=== PATIENT | male | born 1965 | race African-American/Black ===

== ENCOUNTER 2017-03-20 20:22 | Inpatient (IN) | payer MEDICAID ==
[2017-03-20 21:02] VITALS: BP 139/76
[2017-03-20] MEDS ORDERED: Albuterol Nebulizer 2.5mg/3mL HHN PRN (22:02)
[2017-03-20] MEDS ORDERED: Ipratropium Neb 0.5 mg/2.5 mL UD HHN PRN (22:02)
[2017-03-20] MEDS ORDERED: Maalox 30 mL Cup PO PRN (22:02)
[2017-03-20 22:53] LABS: % BASOPHILS 0.2 % (0.0-2.0); % EOSINOPHILS 0.5 % (0.0-5.0); % LYMPHOCYTES 12.6 % (20.0-50.0); % NEUTROPHILS 82.7 % (40.0-80.0); HEMATOCRIT 35.2 % (39.0-49.0); HEMOGLOBIN 12.1 gm/dL (13.2-17.3); MEAN CELL VOLUME 85.2 fl (80-99); MEAN CORPUSCULAR HEMOGLOBIN 29.4 pg (26.0-30.0); MEAN CORPUSCULAR HGB CONC 34.5 pg (28.0-36.0); MEAN PLATELET VOLUME 7.3 fl; PLATELET COUNT 269 Th/cmm (150-400); RED BLOOD COUNT 4.13 Mil/cmm (4.30-5.70); RED CELL DISTRIBUTION WIDTH 12.4 % (11.5-20.0); WHITE BLOOD COUNT 3.6 Th/cmm (4.8-10.8)
[2017-03-20 23:06] LABS: ANION GAP 16.3 (7.0-16.0); BILIRUBIN,TOTAL 0.4 mg/dL (0.3-1.0); BUN/CREATININE RATIO 17.4; CALCIUM SERUM 8.7 mg/dL (8.6-10.3); CARBON DIOXIDE 18.4 mEq/L (21.0-31.0); CREATININE - SERUM 3.1 mg/dL (0.7-1.3); POTASSIUM SERUM 3.7 mEq/L (3.5-5.1)
[2017-03-20] MEDS: D5-0.9%NS 1,000 ML IV SCH (23:36)
[2017-03-21 05:14] LABS: % EOSINOPHILS 0.6 % (0.0-5.0); % NEUTROPHILS 82.3 % (40.0-80.0); NEUTROPHILE ABSOLUTE 2.6 Th/cmm (1.8-8.0); RED BLOOD COUNT 4.11 Mil/cmm (4.30-5.70)
[2017-03-21 05:25] LABS: % BASOPHILS 0.1 % (0.0-2.0); % LYMPHOCYTES 11.7 % (20.0-50.0); % MONOCYTES 5.3 % (2.0-10.0); HEMATOCRIT 35.6 % (39.0-49.0); MEAN CELL VOLUME 86.5 fl (80-99); MEAN CORPUSCULAR HEMOGLOBIN 29.3 pg (26.0-30.0); MEAN CORPUSCULAR HGB CONC 33.8 pg (28.0-36.0); MEAN PLATELET VOLUME 7.7 fl; PLATELET COUNT 275 Th/cmm (150-400); RED CELL DISTRIBUTION WIDTH 12.5 % (11.5-20.0); WHITE BLOOD COUNT 3.2 Th/cmm (4.8-10.8)
[2017-03-21 05:37] LABS: ANION GAP 11.7 (7.0-16.0); CALCIUM SERUM 8.8 mg/dL (8.6-10.3); CREATININE - SERUM 2.9 mg/dL (0.7-1.3); MAGNESIUM 2.4 mg/dL (1.9-2.7); PHOSPHOROUS 4.6 mg/dL (2.5-5.0); POTASSIUM SERUM 3.7 mEq/L (3.5-5.1)
[2017-03-21] MEDS ORDERED: Pneumococcal Vaccine 0.5 mL Vial IM ONE (10:00)
--- NOTE | 2017-03-21 13:19 | Diagnostic Imaging Report ---
Renal ultrasound HISTORY: Abnormal renal function test The right kidney measures 12.6 x 5.5 x 5.4 cm. There is an increase in cortical echogenicity. Significance should be correlated clinically with renal function tests. No focal lesions. No hydronephrosis. The left kidney is normal in size (11.5 x 5.6 x 5.5 cm). Increased cortical echogenicity also noted. Limited evaluation of the urinary bladder with no obvious intraluminal abnormalities. IMPRESSION: 1. Bilateral increased renal parenchymal echogenicity. The significance should be correlated clinically and with renal function tests. 2. No focal renal lesions or hydronephrosis
[2017-03-21] MEDS: Hydrocodone/APAP 10 mg/325 mg Tab PO PRN (18:37)
[2017-03-21] MEDS: Benztropine 1 MG TAB PO SCH (22:16)
[2017-03-22] MEDS: D5-0.9%NS 1,000 ML IV SCH ×2 (01:02→08:27)
--- NOTE | 2017-03-22 01:20 | History & Physical ---
ADMIT DATE: 03/20/2017 CHIEF COMPLAINT: The patient has weakness. HISTORY OF PRESENT ILLNESS: The patient is a 51-year-old black male who has been transferred from [facility]. The patient was admitted to [facility] from [facility]. The patient was noted to be weak. The patient with back pain. He complains of mild cough. REVIEW OF SYSTEMS: See history of present illness. PAST MEDICAL HISTORY: Asthma and schizophrenia. SOCIAL HISTORY: The patient is a resident of a [facility]. MEDICATIONS: see MAR. ALLERGIES: No known allergies. PHYSICAL EXAMINATION: GENERAL: The patient is awake, alert and nontoxic in appearance. VITAL SIGNS ON ADMISSION: Temperature 97.6, pulse 82, blood pressure 139/76, respirations 18 and O2 sat 97% on room air. HEENT: Normocephalic and atraumatic. Extraocular movements are intact. Oropharynx is clear. NECK: Supple. No thyromegaly, no lymphadenopathy. CARDIOVASCULAR: S1, S2. No gallops. RESPIRATORY: Clear. No wheezing or rhonchi. GASTROINTESTINAL: Soft, nontender, nondistended. Positive bowel sounds. GENITOURINARY: No CVA tenderness. No suprapubic tenderness. BACK: No midline tenderness. EXTREMITIES: Equal pulses bilaterally. No cyanosis, clubbing or edema. SKIN: Negative. PSYCHIATRIC: Negative. NEUROLOGIC: Cranial nerves intact. Extraocular movements are intact. Sensation intact. Neurovascular intact. Bilateral muscles grossly normal. LABORATORY DATA: On admission are as follows: Hematology: WBC of 3.6, hemoglobin 12.1, hematocrit 35.2 and platelet count of 269, 82% neutrophils, 12% lymphocytes. Chemistry: Sodium is 123, potassium 3.7, chloride 92, bicarbonate 18, anion gap 16.3, BUN 54, creatinine 3.9. GFR is 27.6, glucose 109, calcium 8.7, total bilirubin 0.4, AST 198, ALT per labs, alkaline phosphatase per labs, albumin 3.2, globulin 3.2. [place] level is 0.91. MICROBIOLOGY: No new microbiology results. RADIOLOGY: Renal ultrasound shows bilateral increased renal parenchymal density. No focal renal lesions or hydronephrosis. IMPRESSION: 1. Acute kidney injury. 2. Weakness. 3. Dehydration (moderate). 4. Leukopenia. 5. Anemia. 6. Hyponatremia. 7. Hyperglycemia. 8. Transaminitis. 9. Hypoalbuminemia. 10. Schizophrenia. 11. Asthma. PLAN: The patient admitted to med/surg unit, seen by Dr. Rodas. The patient ordered for Nephrology consultation and for psychiatric consultation. We will obtain further labs and consultations. The patient ordered for PT evaluation. JOB# [id number]
--- NOTE | 2017-03-22 05:51 | Consultation ---
DATE OF CONSULTATION: 03/21/2017 REASON FOR CONSULTATION: Worsening kidney function, electrolyte imbalance and fluid management. HISTORY OF PRESENT ILLNESS: This is a 51-year-old male with past medical history of schizophrenia, who developed generalized weakness and transported to [facility]. He was then transferred to [facility] for further evaluation and medical care. A few days prior to admission, he developed watery diarrhea approximately 3-4 times per day. This led to a very poor oral intake, with gradual development of generalized weakness. A few hours prior to admission, his condition deteriorated. He was then brought to [facility]. His vitals were stable except for his temperature of 100 degrees centigrade. Chest x-ray showed no acute disease. His sodium level was 122 with a BUN/creatinine of 52/3.6. He was initiated on IV fluids and his BUN/creatinine gradually improved to ____/2.9. He denied any nausea and vomiting. He denied any history of kidney failure in the past. PAST MEDICAL HISTORY: 1. Bronchial asthma. 2. Schizophrenia. CURRENT MEDICATIONS: He is currently on acetaminophen, albuterol, benztropine, folic acid, gabapentin, Haldol, ipratropium, lithium, lorazepam, magnesium hydroxide, Zofran, trazodone. ALLERGIES: No known drug allergies. SOCIAL HISTORY: He did have a history of smoking in the past, but quit many years ago. Denied any history of alcohol abuse. He currently resides at the [facility]. FAMILY HISTORY: Noncontributory to present illness. REVIEW OF SYSTEMS: CONSTITUTIONAL: Appetite had deteriorated. He had a low-grade fever. He subsequently developed generalized weakness. HEENT: No mention of headaches or dizziness. CARDIORESPIRATORY: No chest pain, palpitations, diaphoresis or cough. GASTROINTESTINAL: He admitted to having watery diarrhea 3-4 times a day. No nausea and vomiting. No melena, hematochezia. ENDOCRINE: No history of diabetes or thyroid abnormalities. MUSCULOSKELETAL: Multiple joint arthralgias. HEMATOLOGIC: History of mild anemia. GENITOURINARY: As per patient, no history of kidney failure. Comes in now with acute kidney injury. Denied any dysuria or hematuria, no retention. NEUROPSYCHIATRIC: No syncopal episode, no seizure activity. History of schizophrenia. PHYSICAL EXAMINATION: GENERAL: The patient is alert, verbal, comfortable. VITAL SIGNS: Blood pressure is 125/64, pulse 78, temperature 97.2 degrees. SKIN: Poor turgor, warm. No rash, no jaundice appreciated. HEENT: Head: Normocephalic, atraumatic. Eyes: Extraocular muscles intact. Pupils equal, round, reactive to light and accommodate. Anicteric sclerae, pink conjunctivae. Nose: Midline nasal septum. Mouth: Dry mucosa with adequate dentition. NECK: Supple. No adenopathy, no thyromegaly, no bruits. Trachea palpated in the midline. CHEST AND CARDIOVASCULAR: S1, S2. No rub, murmur, nor gallop appreciated. Point of maximal impulse fifth intercostal space, left midclavicular line. No abdominal or femoral bruits appreciated. LUNGS: Equal expansion. No use of accessory muscles. No supraclavicular retractions. Decreased breath sounds but clear to auscultation without any wheeze. ABDOMEN: Flat, soft, positive for bowel sounds. No bruits either diastolic or systolic. RECTAL: Lax sphincter tone, no presence of any stool on examining finger. GENITOURINARY: Normal appearing male genitalia. MUSCULOSKELETAL: No effusions present in his joints, with adequate range of motion. EXTREMITIES: No evidence of edema, cyanosis nor clubbing with palpable femoral, popliteal and dorsalis pedis pulses. GENERAL: The patient is awake, verbal. Motor is 5/5. Cranial nerves ____ 12 intact. Sensory intact. LABORATORY DATA: Revealed sodium is 124, potassium 3.7, chloride 97, bicarbonate 19, BUN 55, creatinine 2.9, calcium is 8.8. [place] level is 0.91. White count is 3.2, hemoglobin 12, hematocrit 35.6, platelets 275, polys 82.3%. IMPRESSION: 1. As per the patient, he has no history of chronic kidney disease. However, with his history of schizophrenia, he may not be able to provide adequate information. Renal ultrasound revealed increased echogenicity involving both kidneys suggestive of chronic medical renal disease. Thus, he may have underlying chronic kidney disease, possibly due to chronic interstitial nephritis secondary to medications such as lithium. He also mentioned that he had watery diarrhea 3-4 times a day. He was not able to replenish his fluid, both sensible and insensible fluid losses orally. Physical exam revealed poor skin turgor with dry oral mucosa. These are suggestive of underlying dehydration, which could give rise to a decrease in effective circulating volume that is effective circulating volume. His prerenal azotemia may then progress to acute tubular injury. 2. Persistent hyponatremia, which may be due to increased sodium loss compared to free water loss due to ongoing watery diarrhea. I doubt that this is ____ lithium because this medication causes nephrogenic diabetes insipidus which is associated with hypernatremia. 3. Watery diarrhea. Possibly acute gastroenteritis; Clostridium difficile colitis and could be medication induced again, due to lithium. 4. Generalized weakness secondary to diarrhea. 5. Moderate malnutrition. 6. Bronchial asthma. 7. Schizophrenia. PLAN: 1. Urine sodium, eosinophils, creatinine and ____. 2. Urine microalbumin to creatinine ratio. 3. Continue IV fluids with normal daily. 4. Stool for C. difficile and white blood cell count. 5. Electrolytes along with uric acid and serum ____. Thank you, Dr. Rodas, for this consult and we will follow the patient closely with you. JOB# [id number]
--- NOTE | 2017-03-22 06:48 | Admit Criteria Form ---
Admit Criteria Forms - Admit Criteria Diagnosis: HYPONATREMIA; HYPERNATREMIA; HYPOKALEMIA; HYPERKALEMIA; HYPOCALCEMIA; HYPERCALCEMIA Clinical Indications for Inpatient Care (Place 'X' for any and all applicable criteria): Ongoing inpatient care may be indicated for ANY ONE of the following [G](1)(2)(3 )(5): [X ]I. Hyponatremia with ANY ONE of the following: [X ]a) Sodium less than 130 mEq/L (mmol/L) (new) (6)(22) [ ]b) Sodium less than 135 mEq/L (mmol/L) with ANY ONE of the following: [ ]i) Severe medical etiology requiring inpatient management (eg, heart failure, hypovolemia) [ ]ii) Altered mental status [ ]iii) Seizures [ ]II. Hypernatremia with ANY ONE of the following: [ ]a) Sodium greater than 155 mEq/L (mmol/L) [ ]b) Sodium greater than 150 mEq/L (mmol/L) with ANY ONE of the following: [ ] i) Altered mental status [ ]ii) Seizures [ ]iii) Severe medical etiology (eg, hypovolemia, diabetes insipidus) [ ]iv) Severe weakness [ ]v) Severe medical etiology (eg, hemolysis, infection, drug overdose) [ ]III. Hypokalemia with ANY ONE of the following: [ ]a) Potassium less than 2.5 mEq/L (mmol/L) despite outpatient and emergency treatment [ ]b) Potassium less than 3.0 mEq/L (mmol/L) with ANY ONE of the following: [ ]i) Weakness [ ]ii) Cardiac abnormality (eg, arrhythmia, conduction disturbance) [ ]iii) Cardiac ischemia [ ]iv) Ileus [ ]v) Ongoing medical cause requiring inpatient management. ( e.g., acute renal wasting, SIADH) [ ]vi) Other severe symptoms [ ] IV. Hyperkalemia with ANY ONE of the following: [ ]a) Potassium greater than 6.5 mEq/L (mmol/L) [ ]b) Potassium greater than 5 mEq/L (mmol/L) with ANY ONE of the following: [ ]i) Severe ECG findings [H] [ ]ii) Acute worsening of renal failure (creatinine greater than 2.5 mg/dL (221 micromoles/L) or significant elevation for age and size) [ ] V. Hypocalcemia with ANY ONE of the following: [ ]a) Calcium less than 7 mg/dL (1.75 mmol/L) despite outpatient and emergency treatment(19) [ ]b) Calcium less than 8 mg/dL (2 mmol/L) with significant symptoms or findings; examples include: [ ]i) Cardiac abnormality (eg, arrhythmia or conduction disturbance) [ ]ii) Altered mental status [ ]iii) Seizures [ ]iv) Breathing difficulty [ ]v) Muscle spasms [ ]. Hypercalcemia with ANY ONE of the following: [ ]a) Calcium greater than 14 mg/dL (3.5 mmol/L) [ ]b) Calcium greater than 12 mg/dL (3 mmol/L) with ANY ONE of the following: [ ]i) Significant dehydration or hypovolemia as indicated by ANY ONE of the following(2): [ ]1. Clinically significant dehydration as indicated by ANY ONE of the following: [ ]A. Acute loss of weight from baseline (5% of body weight in adults, 9% in pediatric patients) [ ]B. Hemodynamic instability [ ]C. Acute renal failure [ ]D. Serum sodium greater than 150 mEq/L (mmol/L) [ ]2) Dehydration that is persistent indicated by ALL of the following: [ ]A. Oral rehydration therapy not tolerated or insufficient to adequately correct dehydration [ ]B. Appropriate intravenous treatment (eg, fluids ) does not readily correct dehydration ie, after 12 to 24 hours of treatment) [ ]ii) Significant symptoms or findings; examples include: [ ]1) Altered mental status [ ]2) Cardiac abnormality (eg, arrhythmia, conduction disturbance) [ ]3) Cardiac abnormality (eg, arrhythmia, conduction disturbance) The original [facility] content created by [employer] has been revised. The portions of the content which have been revised are identified through the use of italic text or in bold, and [facility] has neither reviewed nor approved the modified material. All other unmodified content is copyright [facility] [employer] Please see references footnoted in the original [facility] edition 2016 Admit Criteria Met?: Yes
[2017-03-22 08:01] LABS: ALB/GLOB RATIO 0.9 (1.0-1.8); ANION GAP 9.8 (7.0-16.0); BILIRUBIN,TOTAL 0.4 mg/dL (0.3-1.0); BUN/CREATININE RATIO 20.8; CALCIUM SERUM 8.9 mg/dL (8.6-10.3); CARBON DIOXIDE 21.1 mEq/L (21.0-31.0); CREATININE - SERUM 2.5 mg/dL (0.7-1.3); MAGNESIUM 2.7 mg/dL (1.9-2.7); PHOSPHOROUS 3.8 mg/dL (2.5-5.0); POTASSIUM SERUM 3.9 mEq/L (3.5-5.1); URIC ACID 10.1 mg/dL (4.4-7.6)
[2017-03-22 08:05] LABS: HEMATOCRIT 34.3 % (39.0-49.0); HEMOGLOBIN 11.8 gm/dL (13.2-17.3); MEAN CELL VOLUME 85.7 fl (80-99); MEAN CORPUSCULAR HEMOGLOBIN 29.5 pg (26.0-30.0); MEAN CORPUSCULAR HGB CONC 34.4 pg (28.0-36.0); MEAN PLATELET VOLUME 7.8 fl; PLATELET COUNT 244 Th/cmm (150-400); RED BLOOD COUNT 4.01 Mil/cmm (4.30-5.70); RED CELL DISTRIBUTION WIDTH 12.5 % (11.5-20.0)
[2017-03-22 08:24] LABS: WHITE BLOOD COUNT 3.6 Th/cmm (4.8-10.8)
[2017-03-22 10:00] LABS: BAND NEUTROPHILE 6 % (0-10); NEUTROPHILS 81 % (40-80); TOTAL CELLS COUNTED 100
[2017-03-22 10:01] LABS: PLATELET ESTIMATE ADEQUATE (NORMAL); PLATELET MORPHOLOGY NORMAL (NORMAL)
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
[2017-03-22 10:58] LABS: AMPHETAMINE URINE NEGATIVE (NEGATIVE); BARBITURATES URINE NEGATIVE (NEGATIVE); METHADONE URINE NEGATIVE (NEGATIVE)
--- NOTE | 2017-03-22 13:23 | Diagnostic Imaging Report ---
Ultrasound abdomen limited History: Transaminitis Comparison: Renal ultrasound on 03/21/2017 Technique: Sonography of the right upper quadrant was performed in multiple planes. Findings: The liver demonstrates normal echogenicity and measures 18.9 cm. No evidence of focal lesions. No evidence of gallstones. There is generalized gallbladder wall thickening measuring up to 5 mm. No pericholecystic fluid. The common bile duct measures 3 mm. IMPRESSION: Generalized mild gallbladder wall thickening. No evidence of gallstones. Findings are nonspecific and may be due to inflammatory processes. Hepatitis and hypoalbuminemia may be considered. Other etiologies such as acalculus cholecystitis may also be considered in the appropriate clinical setting. Mild hepatomegaly.
--- NOTE | 2017-03-22 18:36 | General Progress Note ---
Subjective - Review of Systems Service Date: 03/22/17 Subjective: awake, agitated today Objective - Results Result Diagrams: 03/22/17 06:00 03/22/17 06:00 Recent Labs: Laboratory Last Values WBC 3.6 Th/cmm (4.8-10.8) L 03/22/17 06:00 RBC 4.01 Mil/cmm (4.30-5.70) L 03/22/17 06:00 Hgb 11.8 gm/dL (13.2-17.3) L 03/22/17 06:00 Hct 34.3 % (39.0-49.0) L 03/22/17 06:00 MCV 85.7 fl (80-99) 03/22/17 06:00 MCH 29.5 pg (26.0-30.0) 03/22/17 06:00 MCHC Differential 34.4 pg (28.0-36.0) 03/22/17 06:00 RDW 12.5 % (11.5-20.0) 03/22/17 06:00 Plt Count 244 Th/cmm (150-400) 03/22/17 06:00 MPV 7.8 fl 03/22/17 06:00 Neutrophils % 82.3 % (40.0-80.0) H 03/21/17 04:32 Band Neutrophils % 6 % (0-10) 03/22/17 06:00 Lymphocytes % 11.7 % (20.0-50.0) L 03/21/17 04:32 Monocytes % 5.3 % (2.0-10.0) 03/21/17 04:32 Eosinophils % 0.6 % (0.0-5.0) 03/21/17 04:32 Basophils % 0.1 % (0.0-2.0) 03/21/17 04:32 Neutrophils (Manual) 81 % (40-80) H 03/22/17 06:00 Lymphocytes 9 % (20-50) L 03/22/17 06:00 Monocytes 4 % (2-10) 03/22/17 06:00 Platelet Estimate ADEQUATE (NORMAL) 03/22/17 06:00 Platelet Morphology NORMAL (NORMAL) 03/22/17 06:00 RBC Morph Micro Appear NORMAL (NORMAL) 03/22/17 06:00 Eos Smear Source URINE 03/22/17 00:30 Eos Smear Total Cells NONE SEEN (NONE SEEN) 03/22/17 00:30 Sodium 126 mEq/L (136-145) L 03/22/17 06:00 Potassium 3.9 mEq/L (3.5-5.1) 03/22/17 06:00 Chloride 99 mEq/L (98-107) 03/22/17 06:00 Carbon Dioxide 21.1 mEq/L (21.0-31.0) 03/22/17 06:00 Anion Gap 9.8 (7.0-16.0) 03/22/17 06:00 BUN 52 mg/dL (7-25) H 03/22/17 06:00 Creatinine 2.5 mg/dL (0.7-1.3) H 03/22/17 06:00 Est GFR ( Amer) 35.3 ml/min (>90) 03/22/17 06:00 Est GFR (Non-Af Amer) 29.2 ml/min 03/22/17 06:00 BUN/Creatinine Ratio 20.8 03/22/17 06:00 Glucose 125 mg/dL (70-105) H 03/22/17 06:00 Uric Acid 10.1 mg/dL (4.4-7.6) H 03/22/17 06:00 Calcium 8.9 mg/dL (8.6-10.3) 03/22/17 06:00 Phosphorus 3.8 mg/dL (2.5-5.0) 03/22/17 06:00 Magnesium 2.7 mg/dL (1.9-2.7) 03/22/17 06:00 Total Bilirubin 0.4 mg/dL (0.3-1.0) 03/22/17 06:00 AST 224 U/L (13-39) H 03/22/17 06:00 ALT 62 U/L (7-52) H 03/22/17 06:00 Alkaline Phosphatase 35 U/L (34-104) 03/22/17 06:00 Total Protein 6.4 gm/dL (6.0-8.3) 03/22/17 06:00 Albumin 3.1 gm/dL (4.2-5.5) L 03/22/17 06:00 Globulin 3.3 gm/dL 03/22/17 06:00 Albumin/Globulin Ratio 0.9 (1.0-1.8) L 03/22/17 06:00 Ur Random Sodium 12 mmol/L 03/22/17 00:30 Urine Creatinine 108.0 mg/dl (39.0-259.0) 03/22/17 00:30 Urine Opiates Screen NEGATIVE (NEGATIVE) 03/22/17 00:30 Urine Methadone Screen NEGATIVE (NEGATIVE) 03/22/17 00:30 Ur Barbiturates Screen NEGATIVE (NEGATIVE) 03/22/17 00:30 Ur Tricyclics Screen NEGATIVE (NEGATIVE) 03/22/17 00:30 Ur Phencyclidine Scrn NEGATIVE (NEGATIVE) 03/22/17 00:30 Amphetamines Screen NEGATIVE (NEGATIVE) 03/22/17 00:30 U Methamphetamines Scrn NEGATIVE (NEGATIVE) 03/22/17 00:30 U Benzodiazepines Scrn NEGATIVE (NEGATIVE) 03/22/17 00:30 [place] 0.91 MEQ/L (0.50-1.00) 03/21/17 04:32 U Cocaine Metab Screen NEGATIVE (NEGATIVE) 03/22/17 00:30 U Cannabinoids Screen POSITIVE (NEGATIVE) H 03/22/17 00:30 - Physical Exam Vitals and I&O: Vital Signs Temp 97.7 F 03/22/17 15:49 Pulse 75 03/22/17 15:49 Resp 18 03/22/17 15:49 BP 113/54 03/22/17 15:49 Pulse Ox 100 03/22/17 15:49 Intake & Output 03/21/17 03/22/17 03/22/17 18:59 06:59 18:59 Intake Total 1240 741.667 Balance 1240 741.667 Intake: Intake, IV Amount 1000 741.667 D5-0.9%Ns 1,000 ml @ 100 1000 741.667 mls/hr IV .Q10H [facility] Rx#: [id number] Oral 240 Other: # Voids 3 Active Medications: Current Medications Acetaminophen (Tylenol) 650 mg PO Q6H PRN PRN Reason: Mild Pain/Headache/T above 101 Stop: 05/19/17 22:01 Last Admin: 03/21/17 22:17 Dose: 650 mg Acetaminophen/Hydrocodone Bitart ([place] 10 Mg/325 Mg) 1 tab PO Q6H PRN PRN Reason: Severe Pain Stop: 05/19/17 22:01 Last Admin: 03/21/17 18:37 Dose: 1 tab Acetaminophen/Hydrocodone Bitart ([place] 5mg/325mg) 1 tab PO Q6H PRN PRN Reason: Moderate Pain Stop: 05/19/17 22:01 Al Hydrox/Mg Hydrox/Simethicone (Maalox) 30 ml PO Q6H PRN PRN Reason: Constipation Stop: 05/19/17 22:01 Albuterol Sulfate (Albuterol 2.5mg/3ml Neb Ud) 2.5 mg HHN Q6H PRN PRN Reason: Shortness of Breath Stop: 05/19/17 22:01 Benztropine Mesylate (Cogentin) 2 mg PO HS [place]MARIA Stop: 05/20/17 20:59 Last Admin: 03/21/17 22:16 Dose: 2 mg Folic Acid (Folate) 1 mg PO DAILY LUZMARIA Stop: 05/21/17 08:59 Last Admin: 03/22/17 08:26 Dose: 1 mg Gabapentin (Neurontin) 300 mg PO TID [place]MARIA Stop: 05/20/17 13:59 Last Admin: 03/22/17 08:26 Dose: 300 mg Haloperidol (Haldol) 10 mg PO BID [place]ZMARIA Stop: 05/20/17 08:59 Last Admin: 03/22/17 16:25 Dose: 10 mg Dextrose/Sodium Chloride (D5-0.9%Ns) 1,000 mls @ 100 mls/hr IV .Q10H [place]MARIA Stop: 05/19/17 22:14 Last Admin: 03/22/17 08:27 Dose: 100 mls/hr Ipratropium [place] (Atrovent Neb 0.5mg/2.5ml) 0.5 mg HHN Q6H PRN PRN Reason: Shortness of Breath Stop: 05/19/17 22:01 [place] Carbonate (Eskalith) 300 mg PO HS LUZMARIA PRN Reason: Protocol Stop: 05/20/17 20:59 Last Admin: 03/21/17 22:16 Dose: 300 mg Lorazepam (Ativan) 1 mg IVP Q4H PRN; Protocol PRN Reason: Anxiety/Agitation Stop: 05/19/17 22:01 Magnesium Hydroxide (Milk Of Magnesia) 30 ml PO HS PRN PRN Reason: Constipation Stop: 05/19/17 22:01 Miscellaneous (Clinical Monitoring) 1 ea MC DAILY PRN PRN Reason: RENAL Stop: 05/20/17 07:28 Ondansetron HCl (Zofran Odt) 4 mg PO Q6H PRN PRN Reason: Nausea / Vomiting Stop: 05/19/17 22:01 Thiamine HCl (Vitamin B1) 100 mg PO DAILY LUZMARIA Stop: 05/21/17 08:59 Last Admin: 03/22/17 08:26 Dose: 100 mg Trazodone HCl (Desyrel) 50 mg PO HS [place]ZMARIA PRN Reason: Protocol Stop: 05/20/17 20:59 Last Admin: 03/21/17 22:16 Dose: 50 mg General: Alert, Other (not cooperative) HEENT: Atraumatic, Mucous membr. moist/pink Neck: Supple, +2 carotid pulse wo bruit Cardiovascular: Regular rate, Normal S1, Normal S2 Lungs: Clear to auscultation Abdomen: Bowel sounds, Soft Extremities: no Edema Neurological: Sensation intact Skin: no Rash Psych/Mental Status: Other (psychotic) Assessment/Plan - Assessment Assessment: ERICA on CKD Hyponatremia 2nd to Na loss watery diarrhea possible acute gastroenteritis, C. Diff Gen. Weakness 2nd to diarrhea Bronchial Asthma Schizophrenia mod malnutrition - Plan Plan: Lab - Result Diagrams 03/22/17 06:00 03/22/17 06:00 Current Medications Acetaminophen (Tylenol) 650 mg PO Q6H PRN PRN Reason: Mild Pain/Headache/T above 101 Stop: 05/19/17 22:01 Last Admin: 03/21/17 22:17 Dose: 650 mg Acetaminophen/Hydrocodone Bitart ([place] 10 Mg/325 Mg) 1 tab PO Q6H PRN PRN Reason: Severe Pain Stop: 05/19/17 22:01 Last Admin: 03/21/17 18:37 Dose: 1 tab Acetaminophen/Hydrocodone Bitart ([place] 5mg/325mg) 1 tab PO Q6H PRN PRN Reason: Moderate Pain Stop: 05/19/17 22:01 Al Hydrox/Mg Hydrox/Simethicone (Maalox) 30 ml PO Q6H PRN PRN Reason: Constipation Stop: 05/19/17 22:01 Albuterol Sulfate (Albuterol 2.5mg/3ml Neb Ud) 2.5 mg HHN Q6H PRN PRN Reason: Shortness of Breath Stop: 05/19/17 22:01 Benztropine Mesylate (Cogentin) 2 mg PO HS LUZMARIA Stop: 05/20/17 20:59 Last Admin: 03/21/17 22:16 Dose: 2 mg Folic Acid (Folate) 1 mg PO DAILY LUZMARIA Stop: 05/21/17 08:59 Last Admin: 03/22/17 08:26 Dose: 1 mg Gabapentin (Neurontin) 300 mg PO TID LUZMARIA Stop: 05/20/17 13:59 Last Admin: 03/22/17 08:26 Dose: 300 mg Haloperidol (Haldol) 10 mg PO BID LU[place]MARIA Stop: 05/20/17 08:59 Last Admin: 03/22/17 16:25 Dose: 10 mg Dextrose/Sodium Chloride (D5-0.9%Ns) 1,000 mls @ 100 mls/hr IV .Q10H [place] Stop: 05/19/17 22:14 Last Admin: 03/22/17 08:27 Dose: 100 mls/hr Ipratropium [place] (Atrovent Neb 0.5mg/2.5ml) 0.5 mg HHN Q6H PRN PRN Reason: Shortness of Breath Stop: 05/19/17 22:01 [place] Carbonate (Eskalith) 300 mg PO HS LUZMARIA PRN Reason: Protocol Stop: 05/20/17 20:59 Last Admin: 03/21/17 22:16 Dose: 300 mg Lorazepam (Ativan) 1 mg IVP Q4H PRN; Protocol PRN Reason: Anxiety/Agitation Stop: 05/19/17 22:01 Magnesium Hydroxide (Milk Of Magnesia) 30 ml PO HS PRN PRN Reason: Constipation Stop: 05/19/17 22:01 Miscellaneous (Clinical Monitoring) 1 ea MC DAILY PRN PRN Reason: RENAL Stop: 05/20/17 07:28 Ondansetron HCl (Zofran Odt) 4 mg PO Q6H PRN PRN Reason: Nausea / Vomiting Stop: 05/19/17 22:01 Thiamine HCl (Vitamin B1) 100 mg PO DAILY LUZMARIA Stop: 05/21/17 08:59 Last Admin: 03/22/17 08:26 Dose: 100 mg Trazodone HCl (Desyrel) 50 mg PO HS [place]MARIA PRN Reason: Protocol Stop: 05/20/17 20:59 Last Admin: 03/21/17 22:16 Dose: 50 mg Na up to 126 BUN/CR improving to 52/2.5 however pt. refusing to eat & wanted IVF out discussed noncompliance w/ family @ bedside
[2017-03-22] MEDS: Benztropine 1 MG TAB PO SCH (22:11)
--- NOTE | 2017-03-23 04:04 | Progress Notes ---
DATE: 03/22/[address] Jalloh. Case discussed with staff of the patient, reviewed records. The patient continues to be somewhat confused, not a great historian that he denies any current intent to harm himself or anybody, he denies having any hallucinations or paranoia and so far, his vital signs stable and no side effects with the medication, no sedation, no nausea. Thank you very much for allowing me to participate in the care of this interesting patient. The patient will follow up with the psychiatrist ____ upon discharge. JOB# [id number]
[2017-03-23 07:02] LABS: HEMOGLOBIN 11.6 gm/dL (13.2-17.3); MEAN CORPUSCULAR HGB CONC 34.8 pg (28.0-36.0)
[2017-03-23 07:13] LABS: ANION GAP 10.3 (7.0-16.0); BILIRUBIN,TOTAL 0.4 mg/dL (0.3-1.0); BUN/CREATININE RATIO 20.9; CALCIUM SERUM 8.9 mg/dL (8.6-10.3); CARBON DIOXIDE 20.3 mEq/L (21.0-31.0); CREATININE - SERUM 2.2 mg/dL (0.7-1.3); MAGNESIUM 2.9 mg/dL (1.9-2.7); PHOSPHOROUS 3.6 mg/dL (2.5-5.0); POTASSIUM SERUM 3.6 mEq/L (3.5-5.1)
[2017-03-23 07:14] LABS: BILIRUBIN,DIRECT 0.14 mg/dL (0.0-0.2); BILIRUBIN,TOTAL 0.4 mg/dL (0.3-1.0)
[2017-03-23 07:28] LABS: HEMATOCRIT 33.3 % (39.0-49.0); MEAN CORPUSCULAR HEMOGLOBIN 29.9 pg (26.0-30.0); MEAN PLATELET VOLUME 7.6 fl; PLATELET COUNT 224 Th/cmm (150-400); RED BLOOD COUNT 3.88 Mil/cmm (4.30-5.70); RED CELL DISTRIBUTION WIDTH 12.7 % (11.5-20.0)
[2017-03-23 07:58] LABS: WHITE BLOOD COUNT 3.6 Th/cmm (4.8-10.8)
--- NOTE | 2017-03-23 08:28 | Progress Notes ---
DATE: 03/22/2017 SUBJECTIVE: The patient is awake and alert. The patient is on IV fluids. OBJECTIVE: VITAL SIGNS: Temperature is 100.4, pulse of 74, blood pressure 126/70, respiratory rate 18, and O2 sat is 97% on room air. CARDIOVASCULAR: S1 and S2. RESPIRATORY: Clear. GASTROINTESTINAL: Soft. Positive bowel sounds. LABORATORY DATA: Hematology: WBC 3.6, hemoglobin 11.8, hematocrit 34.3, platelet count 244, 81% neutrophils, and 9% lymphocytes. Chemistry: Sodium 126, potassium 3.9, chloride 99, bicarbonate 21, anion gap 9.8, BUN 22, creatinine per labs. GFR is 35.3, glucose 125, uric acid per labs, calcium 8.9, phosphorous is 3.8, and mag is 2.7. Total bili is 0.4. AST is 224. ALT is 62. Alkaline phosphatase is 35. Total protein 6.4, albumin 3.1, globulin 3.3, and urinary sodium is 12. ASSESSMENT: 1. Leukopenia. 2. Anemia. 3. Hyponatremia. 4. Acute kidney injury. 5. Hyperglycemia. 6. Hyperuricemia. 7. Transaminitis. 8. Hypoalbuminemia. 9. Asthma. 10. Schizophrenia. 11. Debility. PLAN: Continue current medication and treatment. Continue IV fluids. We will obtain labs in a.m. We will obtain davila cultures in a.m. if the patient continues to have elevated temperature. We will obtain abdominal ultrasound regarding transaminitis. We will obtain GI consultation regarding transaminitis. Further recommendations per consultation. JOB# [id number] [facility]
[2017-03-23 09:25] LABS: BAND NEUTROPHILE 3 % (0-10); EOSINOPHIL 1 % (0-5); NEUTROPHILS 80 % (40-80); TOTAL CELLS COUNTED 100
[2017-03-23 09:26] LABS: PLATELET ESTIMATE ADEQUATE (NORMAL); PLATELET MORPHOLOGY NORMAL (NORMAL)
[2017-03-23 14:25] LABS: MICROALBUMIN RANDOM RUINE 1521.4 ug/mL (Not Estab.)
--- NOTE | 2017-03-23 15:12 | General Progress Note ---
Subjective - Review of Systems Service Date: 03/23/17 Subjective: sleeping, arousable, refused ivf Objective - Results Result Diagrams: 03/23/17 06:10 03/23/17 06:10 Recent Labs: Laboratory Last Values WBC 3.6 Th/cmm (4.8-10.8) L 03/23/17 06:10 RBC 3.88 Mil/cmm (4.30-5.70) L 03/23/17 06:10 Hgb 11.6 gm/dL (13.2-17.3) L 03/23/17 06:10 Hct 33.3 % (39.0-49.0) L 03/23/17 06:10 MCV 86.0 fl (80-99) 03/23/17 06:10 MCH 29.9 pg (26.0-30.0) 03/23/17 06:10 MCHC Differential 34.8 pg (28.0-36.0) 03/23/17 06:10 RDW 12.7 % (11.5-20.0) 03/23/17 06:10 Plt Count 224 Th/cmm (150-400) 03/23/17 06:10 MPV 7.6 fl 03/23/17 06:10 Neutrophils % 82.3 % (40.0-80.0) H 03/21/17 04:32 Band Neutrophils % 3 % (0-10) 03/23/17 06:10 Lymphocytes % 11.7 % (20.0-50.0) L 03/21/17 04:32 Monocytes % 5.3 % (2.0-10.0) 03/21/17 04:32 Eosinophils % 0.6 % (0.0-5.0) 03/21/17 04:32 Basophils % 0.1 % (0.0-2.0) 03/21/17 04:32 Neutrophils (Manual) 80 % (40-80) 03/23/17 06:10 Lymphocytes 9 % (20-50) L 03/23/17 06:10 Monocytes 7 % (2-10) 03/23/17 06:10 Eosinophils 1 % (0-5) 03/23/17 06:10 Platelet Estimate ADEQUATE (NORMAL) 03/23/17 06:10 Platelet Morphology NORMAL (NORMAL) 03/23/17 06:10 RBC Morph Micro Appear NORMAL (NORMAL) 03/23/17 06:10 Eos Smear Source URINE 03/22/17 00:30 Eos Smear Total Cells NONE SEEN (NONE SEEN) 03/22/17 00:30 Sodium 127 mEq/L (136-145) L 03/23/17 06:10 Potassium 3.6 mEq/L (3.5-5.1) 03/23/17 06:10 Chloride 100 mEq/L (98-107) 03/23/17 06:10 Carbon Dioxide 20.3 mEq/L (21.0-31.0) L 03/23/17 06:10 Anion Gap 10.3 (7.0-16.0) 03/23/17 06:10 BUN 46 mg/dL (7-25) H 03/23/17 06:10 Creatinine 2.2 mg/dL (0.7-1.3) H 03/23/17 06:10 Est GFR ( Amer) 40.9 ml/min (>90) 03/23/17 06:10 Est GFR (Non-Af Amer) 33.8 ml/min 03/23/17 06:10 BUN/Creatinine Ratio 20.9 03/23/17 06:10 Glucose 107 mg/dL (70-105) H 03/23/17 06:10 Uric Acid 10.1 mg/dL (4.4-7.6) H 03/22/17 06:00 Calcium 8.9 mg/dL (8.6-10.3) 03/23/17 06:10 Phosphorus 3.6 mg/dL (2.5-5.0) 03/23/17 06:10 Magnesium 2.9 mg/dL (1.9-2.7) H 03/23/17 06:10 Total Bilirubin 0.4 mg/dL (0.3-1.0) 03/23/17 06:10 Direct Bilirubin 0.14 mg/dL (0.0-0.2) 03/23/17 06:10 AST 226 U/L (13-39) H 03/23/17 06:10 ALT 74 U/L (7-52) H 03/23/17 06:10 Alkaline Phosphatase 38 U/L (34-104) 03/23/17 06:10 Total Protein 6.3 gm/dL (6.0-8.3) 03/23/17 06:10 Albumin 3.1 gm/dL (4.2-5.5) L 03/23/17 06:10 Globulin 3.2 gm/dL 03/23/17 06:10 Albumin/Globulin Ratio 1.0 (1.0-1.8) 03/23/17 06:10 Ur Random Sodium 12 mmol/L 03/22/17 00:30 Urine Creatinine 86.1 mg/dl (Not Estab.) 03/22/17 00:30 Urine Microalbumin 1521.4 ug/mL (Not Estab.) 03/22/17 00:30 Microalb/Creat Ratio 1767.0 mg/g creat (0.0-30.0) H 03/22/17 00:30 Urine Opiates Screen NEGATIVE (NEGATIVE) 03/22/17 00:30 Urine Methadone Screen NEGATIVE (NEGATIVE) 03/22/17 00:30 Ur Barbiturates Screen NEGATIVE (NEGATIVE) 03/22/17 00:30 Ur Tricyclics Screen NEGATIVE (NEGATIVE) 03/22/17 00:30 Ur Phencyclidine Scrn NEGATIVE (NEGATIVE) 03/22/17 00:30 Amphetamines Screen NEGATIVE (NEGATIVE) 03/22/17 00:30 U Methamphetamines Scrn NEGATIVE (NEGATIVE) 03/22/17 00:30 U Benzodiazepines Scrn NEGATIVE (NEGATIVE) 03/22/17 00:30 [place] 0.91 MEQ/L (0.50-1.00) 03/21/17 04:32 U Cocaine Metab Screen NEGATIVE (NEGATIVE) 03/22/17 00:30 U Cannabinoids Screen POSITIVE (NEGATIVE) H 03/22/17 00:30 - Physical Exam Vitals and I&O: Vital Signs Temp 97.1 F 03/23/17 08:00 Pulse 82 03/23/17 08:17 Resp 20 03/23/17 09:30 BP 110/70 03/23/17 08:00 Pulse Ox 100 03/23/17 08:17 Intake & Output 03/22/17 03/23/17 03/23/17 18:59 06:59 18:59 Intake Total 741.667 200 Balance 741.667 200 Intake: Intake, IV Amount 741.667 D5-0.9%Ns 1,000 ml @ 100 741.667 mls/hr IV .Q10H [facility] Rx#: [id number] Oral 200 Other: # Voids 2 Active Medications: Current Medications Acetaminophen (Tylenol) 650 mg PO Q6H PRN PRN Reason: Mild Pain/Headache/T above 101 Stop: 05/19/17 22:01 Last Admin: 03/22/17 22:10 Dose: 650 mg Acetaminophen/Hydrocodone Bitart ([place] 10 Mg/325 Mg) 1 tab PO Q6H PRN PRN Reason: Severe Pain Stop: 05/19/17 22:01 Last Admin: 03/21/17 18:37 Dose: 1 tab Acetaminophen/Hydrocodone Bitart ([place] 5mg/325mg) 1 tab PO Q6H PRN PRN Reason: Moderate Pain Stop: 05/19/17 22:01 Al Hydrox/Mg Hydrox/Simethicone (Maalox) 30 ml PO Q6H PRN PRN Reason: Constipation Stop: 05/19/17 22:01 Albuterol Sulfate (Albuterol 2.5mg/3ml Neb Ud) 2.5 mg HHN Q6H PRN PRN Reason: Shortness of Breath Stop: 05/19/17 22:01 Benztropine Mesylate (Cogentin) 2 mg PO HS LUZMARIA Stop: 05/20/17 20:59 Last Admin: 03/22/17 22:11 Dose: 2 mg Folic Acid (Folate) 1 mg PO DAILY LUZMARIA Stop: 05/21/17 08:59 Last Admin: 03/23/17 09:46 Dose: 1 mg Gabapentin (Neurontin) 300 mg PO TID LUZMARIA Stop: 05/20/17 13:59 Last Admin: 03/23/17 14:20 Dose: 300 mg Haloperidol (Haldol) 10 mg PO BID LU[place]MAR[place] Stop: 05/20/17 08:59 Last Admin: 03/23/17 09:47 Dose: 10 mg Dextrose/Sodium Chloride (D5-0.9%Ns) 1,000 mls @ 100 mls/hr IV .Q10H [place]MAR[place] Stop: 05/19/17 22:14 Last Admin: 03/22/17 08:27 Dose: 100 mls/hr Ipratropium [place] (Atrovent Neb 0.5mg/2.5ml) 0.5 mg HHN Q6H PRN PRN Reason: Shortness of Breath Stop: 05/19/17 22:01 [place] Carbonate (Eskalith) 300 mg PO HS LUZMARIA PRN Reason: Protocol Stop: 05/20/17 20:59 Last Admin: 03/22/17 22:10 Dose: 300 mg Lorazepam (Ativan) 1 mg IVP Q4H PRN; Protocol PRN Reason: Anxiety/Agitation Stop: 05/19/17 22:01 Magnesium Hydroxide (Milk Of Magnesia) 30 ml PO HS PRN PRN Reason: Constipation Stop: 05/19/17 22:01 Miscellaneous (Clinical Monitoring) 1 ea MC DAILY PRN PRN Reason: RENAL Stop: 05/20/17 07:28 Mupirocin (Bactroban Oint) 1 appl NS BID LUZMARIA Stop: 03/27/17 09:01 Last Admin: 03/23/17 09:47 Dose: 1 appl Ondansetron HCl (Zofran Odt) 4 mg PO Q6H PRN PRN Reason: Nausea / Vomiting Stop: 05/19/17 22:01 Thiamine HCl (Vitamin B1) 100 mg PO DAILY LUZMARIA Stop: 05/21/17 08:59 Last Admin: 03/23/17 09:47 Dose: 100 mg Trazodone HCl (Desyrel) 50 mg PO HS LUZMARIA PRN Reason: Protocol Stop: 05/20/17 20:59 Last Admin: 03/22/17 22:10 Dose: 50 mg General: No acute distress, Other (uncooperative) HEENT: Atraumatic, Mucous membr. moist/pink Neck: Supple, +2 carotid pulse wo bruit Cardiovascular: Regular rate, Normal S1, Normal S2 Lungs: Clear to auscultation Abdomen: Bowel sounds, Soft Extremities: no Edema Neurological: Sensation intact Skin: no Rash Psych/Mental Status: Other (agitated) Assessment/Plan - Assessment Assessment: ERICA on CKD Hyponatremia 2nd to Na loss watery diarrhea possible acute gastroenteritis, C. Diff Gen. 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, illegal drugs) - Plan Plan: Lab - Result Diagrams 03/22/17 06:00 03/22/17 06:00 Current Medications Acetaminophen (Tylenol) 650 mg PO Q6H PRN PRN Reason: Mild Pain/Headache/T above 101 Stop: 05/19/17 22:01 Last Admin: 03/21/17 22:17 Dose: 650 mg Acetaminophen/Hydrocodone Bitart ([place] 10 Mg/325 Mg) 1 tab PO Q6H PRN PRN Reason: Severe Pain Stop: 05/19/17 22:01 Last Admin: 03/21/17 18:37 Dose: 1 tab Acetaminophen/Hydrocodone Bitart ([place] 5mg/325mg) 1 tab PO Q6H PRN PRN Reason: Moderate Pain Stop: 05/19/17 22:01 Al Hydrox/Mg Hydrox/Simethicone (Maalox) 30 ml PO Q6H PRN PRN Reason: Constipation Stop: 05/19/17 22:01 Albuterol Sulfate (Albuterol 2.5mg/3ml Neb Ud) 2.5 mg HHN Q6H PRN PRN Reason: Shortness of Breath Stop: 05/19/17 22:01 Benztropine Mesylate (Cogentin) 2 mg PO HS LUZMARIA Stop: 05/20/17 20:59 Last Admin: 03/21/17 22:16 Dose: 2 mg Folic Acid (Folate) 1 mg PO DAILY LUZMARIA Stop: 05/21/17 08:59 Last Admin: 03/22/17 08:26 Dose: 1 mg Gabapentin (Neurontin) 300 mg PO TID LUZMARIA Stop: 05/20/17 13:59 Last Admin: 03/22/17 08:26 Dose: 300 mg Haloperidol (Haldol) 10 mg PO BID LU[place]MARIA Stop: 05/20/17 08:59 Last Admin: 03/22/17 16:25 Dose: 10 mg Dextrose/Sodium Chloride (D5-0.9%Ns) 1,000 mls @ 100 mls/hr IV .Q10H [place] Stop: 05/19/17 22:14 Last Admin: 03/22/17 08:27 Dose: 100 mls/hr Ipratropium [place] (Atrovent Neb 0.5mg/2.5ml) 0.5 mg HHN Q6H PRN PRN Reason: Shortness of Breath Stop: 05/19/17 22:01 [place] Carbonate (Eskalith) 300 mg PO HS LUZMARIA PRN Reason: Protocol Stop: 05/20/17 20:59 Last Admin: 03/21/17 22:16 Dose: 300 mg Lorazepam (Ativan) 1 mg IVP Q4H PRN; Protocol PRN Reason: Anxiety/Agitation Stop: 05/19/17 22:01 Magnesium Hydroxide (Milk Of Magnesia) 30 ml PO HS PRN PRN Reason: Constipation Stop: 05/19/17 22:01 Miscellaneous (Clinical Monitoring) 1 ea MC DAILY PRN PRN Reason: RENAL Stop: 05/20/17 07:28 Ondansetron HCl (Zofran Odt) 4 mg PO Q6H PRN PRN Reason: Nausea / Vomiting Stop: 05/19/17 22:01 Thiamine HCl (Vitamin B1) 100 mg PO DAILY LUZMARIA Stop: 05/21/17 08:59 Last Admin: 03/22/17 08:26 Dose: 100 mg Trazodone HCl (Desyrel) 50 mg PO HS LUZMARIA PRN Reason: Protocol Stop: 05/20/17 20:59 Last Admin: 03/21/17 22:16 Dose: 50 mg Na up to 127 BUN/CR improving to 46/2.2 however pt. refusing to eat & wanted IVF out encouraged increase po intake
[2017-03-23] MEDS: Benztropine 1 MG TAB PO SCH (21:29)
--- NOTE | 2017-03-24 03:35 | Progress Notes ---
DATE: 03/23/2017 SUBJECTIVE: The patient is awake and alert. The patient is on IV fluids. OBJECTIVE: VITAL SIGNS: Temperature 99, pulse 82, respiratory rate 18, O2 saturation 100% on room air and blood pressure per nursing. CARDIOVASCULAR: S1 and S2. RESPIRATORY: Clear. ABDOMEN: Soft. Positive bowel sounds. LABORATORY DATA: Hematology: WBC per labs, hemoglobin per labs, hematocrit per labs and platelet count 284. No left shift noted. Chemistry: Sodium 127, chloride 100, bicarbonate 20, anion gap 10, BUN 46, creatinine 2.2, GFR is 40.9, glucose is 107, calcium is 8.9, phos 3.6, mag is 2.9. Total bili is 0.4, direct bili is 0.14, AST 226, ALT 74, alkaline phosphatase is 38, total protein 6.3, albumin 3.1 and globulin 3.2. MICROBIOLOGY: MRSA screen from 03/20/2017, positive. IMAGING: Abdominal ultrasound shows generalized mild gallbladder wall thickening. No evidence of gallstones. Mild hepatomegaly. ASSESSMENT: 1. Anemia. 2. Leukopenia. 3. Hyponatremia. 4. Transaminitis. 5. Acute kidney injury. 7. Hypoalbuminemia. 9. Asthma. PLAN: Continue current medications. Obtain labs in a.m. Continue IV fluids. Thank you very much. JOB# [id number] CHELSEA
[2017-03-24 05:24] LABS: NEUTROPHILE ABSOLUTE 3.3 Th/cmm (1.8-8.0)
[2017-03-24 05:30] LABS: % BASOPHILS 0.3 % (0.0-2.0); % EOSINOPHILS 1.2 % (0.0-5.0); % LYMPHOCYTES 12.7 % (20.0-50.0); % MONOCYTES 14.3 % (2.0-10.0); % NEUTROPHILS 71.5 % (40.0-80.0); HEMATOCRIT 31.3 % (39.0-49.0); HEMOGLOBIN 11.1 gm/dL (13.2-17.3); MEAN CELL VOLUME 86.6 fl (80-99); MEAN CORPUSCULAR HEMOGLOBIN 30.7 pg (26.0-30.0); MEAN CORPUSCULAR HGB CONC 35.4 pg (28.0-36.0); MEAN PLATELET VOLUME 7.8 fl; PLATELET COUNT 209 Th/cmm (150-400); RED BLOOD COUNT 3.62 Mil/cmm (4.30-5.70); RED CELL DISTRIBUTION WIDTH 12.7 % (11.5-20.0)
[2017-03-24 05:39] LABS: WHITE BLOOD COUNT 4.7 Th/cmm (4.8-10.8)
[2017-03-24 05:42] LABS: ANION GAP 6.1 (7.0-16.0); CALCIUM SERUM 8.6 mg/dL (8.6-10.3); CARBON DIOXIDE 21.6 mEq/L (21.0-31.0); CREATININE - SERUM 1.9 mg/dL (0.7-1.3); MAGNESIUM 2.8 mg/dL (1.9-2.7); PHOSPHOROUS 2.8 mg/dL (2.5-5.0); POTASSIUM SERUM 3.7 mEq/L (3.5-5.1)
--- NOTE | 2017-03-24 06:08 | Consultation ---
DATE OF CONSULTATION: 03/22/2017 REASON FOR CONSULTATION: Abnormal liver enzymes. HISTORY OF PRESENT ILLNESS: This consult was obtained through the courtesy of Dr. Rodas for this 51-year-old with history of drug abuse, he presented to [facility] with abnormal liver enzymes. Apparently, the patient has been using substance before, he was found to have abnormal liver enzymes. The patient was sent here, GI consult was called in for further evaluation. The patient was a poor historian. He denies any nausea, vomiting. He had some abdominal pain, but it went away. PAST MEDICAL HISTORY: Has mild schizophrenia. PAST SURGICAL HISTORY: Negative. SOCIAL HISTORY: Has used substance both alcohol and drugs in the past. FAMILY HISTORY: Noncontributory. ALLERGIES: No known drug allergy. REVIEW OF SYSTEMS: No hematemesis, melena or hematochezia. No abdominal pain. MEDICATIONS: The patient is on Tylenol, [place], Maalox, albuterol, Cogentin, folate, Neurontin, Haldol. PHYSICAL EXAMINATION: GENERAL: The patient was awake, oriented to self and place, not on time. VITAL SIGNS: Blood pressure was 126/72, heart rate was 75, respiratory rate was 18, temperature is 98.6. HEENT: Head and neck, pupils reactive to light and accommodation. Extraocular muscles are intact. Sclerae are anicteric, conjunctivae not pale. Oral cavity, no lesion. NECK: Supple, no jugular venous distention, no carotid bruit or lymph nodes. CHEST: Good respiratory movements. LUNGS: Clear to auscultation. CARDIOVASCULAR: Regular rate and rhythm. No murmur or gallop. ABDOMEN: Soft. Positive bowel sounds. Nontender. LOWER EXTREMITIES: No edema. CENTRAL NERVOUS SYSTEM: Nonfocal. LABORATORY DATA: AST is 224, ALT 62, alkaline phosphatase 35, bilirubin was 0.4. IMPRESSION: A 51-year-old with abnormal liver enzymes. ASSESSMENT: Abnormal liver enzymes, possibly from drug abuse versus hepatitis versus acalculous cholecystitis. RECOMMENDATIONS: We will check hepatitis panel. We will check labs for chronic liver disease. We will check ferritin, ceruloplasmin. We will consider a HIDA scan. We will recheck labs in the morning and then diet as tolerated, then further recommendations to follow. Other medical problems such as asthma and schizophrenia as per Dr. Rodas. Thank you, Dr. Rodas, for allowing me to participate in the care of the patient. If you have any further questions, please let me know. JOB# [id number]
[2017-03-24 06:20] LABS: ALB/GLOB RATIO 0.9 (1.0-1.8); BILIRUBIN,DIRECT 0.12 mg/dL (0.0-0.2); BILIRUBIN,TOTAL 0.4 mg/dL (0.3-1.0)
[2017-03-24 11:19] LABS: OSMOLALITY, URINE 305 mOsmol/kg
--- NOTE | 2017-03-24 13:21 | Diagnostic Imaging Report ---
Radionuclide biliary scan (HIDA scan) HISTORY: Abnormal liver function test 5.1 mCi technetium labeled biliary agent was used in the exam. There is normal hepatic uptake and clearance. There is excretion of nuclide through the common bile duct and into the small bowel. Visualization of definite gallbladder activity is compromised by activity within the bowel. Images obtained through 3.5 hours. No definite gallbladder couldn't be delineated. IMPRESSION: 1. Somewhat compromised exam due to bowel activity limiting visualization of the gallbladder area. However, no persistent definitive gallbladder activity is seen. Cystic duct obstruction cannot be excluded. Clinical correlation is needed.
--- NOTE | 2017-03-24 19:41 | General Progress Note ---
Subjective - Review of Systems Service Date: 03/24/17 Subjective: sleeping, arousable, eating today & on ivf Objective - Results Result Diagrams: 03/24/17 05:00 03/24/17 05:00 Recent Labs: Laboratory Last Values WBC 4.7 Th/cmm (4.8-10.8) L D 03/24/17 05:00 RBC 3.62 Mil/cmm (4.30-5.70) L 03/24/17 05:00 Hgb 11.1 gm/dL (13.2-17.3) L 03/24/17 05:00 Hct 31.3 % (39.0-49.0) L 03/24/17 05:00 MCV 86.6 fl (80-99) 03/24/17 05:00 MCH 30.7 pg (26.0-30.0) H 03/24/17 05:00 MCHC Differential 35.4 pg (28.0-36.0) 03/24/17 05:00 RDW 12.7 % (11.5-20.0) 03/24/17 05:00 Plt Count 209 Th/cmm (150-400) 03/24/17 05:00 MPV 7.8 fl 03/24/17 05:00 Neutrophils % 71.5 % (40.0-80.0) 03/24/17 05:00 Band Neutrophils % 3 % (0-10) 03/23/17 06:10 Lymphocytes % 12.7 % (20.0-50.0) L 03/24/17 05:00 Monocytes % 14.3 % (2.0-10.0) H 03/24/17 05:00 Eosinophils % 1.2 % (0.0-5.0) 03/24/17 05:00 Basophils % 0.3 % (0.0-2.0) 03/24/17 05:00 Neutrophils (Manual) 80 % (40-80) 03/23/17 06:10 Lymphocytes 9 % (20-50) L 03/23/17 06:10 Monocytes 7 % (2-10) 03/23/17 06:10 Eosinophils 1 % (0-5) 03/23/17 06:10 Platelet Estimate ADEQUATE (NORMAL) 03/23/17 06:10 Platelet Morphology NORMAL (NORMAL) 03/23/17 06:10 RBC Morph Micro Appear NORMAL (NORMAL) 03/23/17 06:10 Eos Smear Source URINE 03/22/17 00:30 Eos Smear Total Cells NONE SEEN (NONE SEEN) 03/22/17 00:30 Sodium 126 mEq/L (136-145) L 03/24/17 05:00 Potassium 3.7 mEq/L (3.5-5.1) 03/24/17 05:00 Chloride 102 mEq/L (98-107) 03/24/17 05:00 Carbon Dioxide 21.6 mEq/L (21.0-31.0) 03/24/17 05:00 Anion Gap 6.1 (7.0-16.0) L 03/24/17 05:00 BUN 38 mg/dL (7-25) H 03/24/17 05:00 Creatinine 1.9 mg/dL (0.7-1.3) H 03/24/17 05:00 Est GFR ( Amer) 48.5 ml/min (>90) 03/24/17 05:00 Est GFR (Non-Af Amer) 40.1 ml/min 03/24/17 05:00 BUN/Creatinine Ratio 20.0 03/24/17 05:00 Glucose 117 mg/dL (70-105) H 03/24/17 05:00 Plasma/Ser Osmolality 279 mOsmol/kg (275-295) 03/22/17 00:30 Uric Acid 10.1 mg/dL (4.4-7.6) H 03/22/17 06:00 Calcium 8.6 mg/dL (8.6-10.3) 03/24/17 05:00 Phosphorus 2.8 mg/dL (2.5-5.0) 03/24/17 05:00 Magnesium 2.8 mg/dL (1.9-2.7) H 03/24/17 05:00 Total Bilirubin 0.4 mg/dL (0.3-1.0) 03/24/17 05:00 Direct Bilirubin 0.12 mg/dL (0.0-0.2) 03/24/17 05:00 AST 210 U/L (13-39) H 03/24/17 05:00 ALT 86 U/L (7-52) H 03/24/17 05:00 Alkaline Phosphatase 38 U/L (34-104) 03/24/17 05:00 Total Protein 6.0 gm/dL (6.0-8.3) 03/24/17 05:00 Albumin 2.9 gm/dL (4.2-5.5) L 03/24/17 05:00 Globulin 3.1 gm/dL 03/24/17 05:00 Albumin/Globulin Ratio 0.9 (1.0-1.8) L 03/24/17 05:00 Urine Osmolality 305 mOsmol/kg 03/22/17 00:30 Ur Random Sodium 12 mmol/L 03/22/17 00:30 Urine Creatinine 86.1 mg/dl (Not Estab.) 03/22/17 00:30 Urine Microalbumin 1521.4 ug/mL (Not Estab.) 03/22/17 00:30 Microalb/Creat Ratio 1767.0 mg/g creat (0.0-30.0) H 03/22/17 00:30 Urine Opiates Screen NEGATIVE (NEGATIVE) 03/22/17 00:30 Urine Methadone Screen NEGATIVE (NEGATIVE) 03/22/17 00:30 Ur Barbiturates Screen NEGATIVE (NEGATIVE) 03/22/17 00:30 Ur Tricyclics Screen NEGATIVE (NEGATIVE) 03/22/17 00:30 Ur Phencyclidine Scrn NEGATIVE (NEGATIVE) 03/22/17 00:30 Amphetamines Screen NEGATIVE (NEGATIVE) 03/22/17 00:30 U Methamphetamines Scrn NEGATIVE (NEGATIVE) 03/22/17 00:30 U Benzodiazepines Scrn NEGATIVE (NEGATIVE) 03/22/17 00:30 [place] 0.91 MEQ/L (0.50-1.00) 03/21/17 04:32 U Cocaine Metab Screen NEGATIVE (NEGATIVE) 03/22/17 00:30 U Cannabinoids Screen POSITIVE (NEGATIVE) H 03/22/17 00:30 - Physical Exam Vitals and I&O: Vital Signs Temp 99 F 03/24/17 16:00 Pulse 88 03/24/17 16:00 Resp 21 03/24/17 16:00 BP 128/78 03/24/17 16:00 Pulse Ox 99 03/24/17 08:40 Intake & Output 03/24/17 03/24/17 03/25/17 06:59 18:59 06:59 Intake Total 1180 Output Total 800 200 Balance 380 -200 Intake: Oral 1180 Output: Urine 800 200 Active Medications: Current Medications Acetaminophen (Tylenol) 650 mg PO Q6H PRN PRN Reason: Mild Pain/Headache/T above 101 Stop: 05/19/17 22:01 Last Admin: 03/22/17 22:10 Dose: 650 mg Acetaminophen/Hydrocodone Bitart ([place] 10 Mg/325 Mg) 1 tab PO Q6H PRN PRN Reason: Severe Pain Stop: 05/19/17 22:01 Last Admin: 03/21/17 18:37 Dose: 1 tab Acetaminophen/Hydrocodone Bitart ([place] 5mg/325mg) 1 tab PO Q6H PRN PRN Reason: Moderate Pain Stop: 05/19/17 22:01 Al Hydrox/Mg Hydrox/Simethicone (Maalox) 30 ml PO Q6H PRN PRN Reason: Constipation Stop: 05/19/17 22:01 Albuterol Sulfate (Albuterol 2.5mg/3ml Neb Ud) 2.5 mg HHN Q6H PRN PRN Reason: Shortness of Breath Stop: 05/19/17 22:01 Benztropine Mesylate (Cogentin) 2 mg PO HS [facility]MARIA Stop: 05/20/17 20:59 Last Admin: 03/23/17 21:29 Dose: 2 mg Folic Acid (Folate) 1 mg PO DAILY [facility]MAR[facility] Stop: 05/21/17 08:59 Last Admin: 03/24/17 10:01 Dose: Not Given Gabapentin (Neurontin) 300 mg PO TID [facility] Stop: 05/20/17 13:59 Last Admin: 03/24/17 14:57 Dose: 300 mg Haloperidol (Haldol) 10 mg PO BID [facility] Stop: 05/20/17 08:59 Last Admin: 03/24/17 17:31 Dose: 10 mg Dextrose/Sodium Chloride (D5-0.9%Ns) 1,000 mls @ 100 mls/hr IV .Q10H [facility] Stop: 05/19/17 22:14 Last Admin: 03/22/17 08:27 Dose: 100 mls/hr Ipratropium [place] (Atrovent Neb 0.5mg/2.5ml) 0.5 mg HHN Q6H PRN PRN Reason: Shortness of Breath Stop: 05/19/17 22:01 [place] Carbonate (Eskalith) 300 mg PO HS LUZMARIA PRN Reason: Protocol Stop: 05/20/17 20:59 Last Admin: 03/23/17 21:29 Dose: 300 mg Lorazepam (Ativan) 1 mg IVP Q4H PRN; Protocol PRN Reason: Anxiety/Agitation Stop: 05/19/17 22:01 Magnesium Hydroxide (Milk Of Magnesia) 30 ml PO HS PRN PRN Reason: Constipation Stop: 05/19/17 22:01 Miscellaneous (Clinical Monitoring) 1 ea MC DAILY PRN PRN Reason: RENAL Stop: 05/20/17 07:28 Mupirocin (Bactroban Oint) 1 appl NS BID [facility] Stop: 03/27/17 09:01 Last Admin: 03/24/17 17:32 Dose: 1 appl Ondansetron HCl (Zofran Odt) 4 mg PO Q6H PRN PRN Reason: Nausea / Vomiting Stop: 05/19/17 22:01 Thiamine HCl (Vitamin B1) 100 mg PO DAILY [facility] Stop: 05/21/17 08:59 Last Admin: 03/24/17 10:02 Dose: Not Given Trazodone HCl (Desyrel) 50 mg PO HS [place] PRN Reason: Protocol Stop: 05/20/17 20:59 Last Admin: 03/23/17 21:29 Dose: 50 mg General: No acute distress, Other (more cooperative) HEENT: Atraumatic, Mucous membr. moist/pink Neck: Supple, +2 carotid pulse wo bruit Cardiovascular: Regular rate, Normal S1, Normal S2 Lungs: Other (decrease BS) Abdomen: Bowel sounds, Soft Extremities: no Edema Neurological: Sensation intact Skin: no Rash Assessment/Plan - Assessment Assessment: ERICA on CKD Hyponatremia 2nd to Na loss watery diarrhea possible acute gastroenteritis, C. Diff Gen. 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, illegal drugs) - Plan Plan: Lab - Result Diagrams 03/22/17 06:00 03/22/17 06:00 Current Medications Acetaminophen (Tylenol) 650 mg PO Q6H PRN PRN Reason: Mild Pain/Headache/T above 101 Stop: 05/19/17 22:01 Last Admin: 03/21/17 22:17 Dose: 650 mg Acetaminophen/Hydrocodone Bitart ([place] 10 Mg/325 Mg) 1 tab PO Q6H PRN PRN Reason: Severe Pain Stop: 05/19/17 22:01 Last Admin: 03/21/17 18:37 Dose: 1 tab Acetaminophen/Hydrocodone Bitart ([place] 5mg/325mg) 1 tab PO Q6H PRN PRN Reason: Moderate Pain Stop: 05/19/17 22:01 Al Hydrox/Mg Hydrox/Simethicone (Maalox) 30 ml PO Q6H PRN PRN Reason: Constipation Stop: 05/19/17 22:01 Albuterol Sulfate (Albuterol 2.5mg/3ml Neb Ud) 2.5 mg HHN Q6H PRN PRN Reason: Shortness of Breath Stop: 05/19/17 22:01 Benztropine Mesylate (Cogentin) 2 mg PO HS [facility]MAR[facility] Stop: 05/20/17 20:59 Last Admin: 03/21/17 22:16 Dose: 2 mg Folic Acid (Folate) 1 mg PO DAILY [facility] Stop: 05/21/17 08:59 Last Admin: 03/22/17 08:26 Dose: 1 mg Gabapentin (Neurontin) 300 mg PO TID [facility] Stop: 05/20/17 13:59 Last Admin: 03/22/17 08:26 Dose: 300 mg Haloperidol (Haldol) 10 mg PO BID [facility] Stop: 05/20/17 08:59 Last Admin: 03/22/17 16:25 Dose: 10 mg Dextrose/Sodium Chloride (D5-0.9%Ns) 1,000 mls @ 100 mls/hr IV .Q10H [facility] Stop: 05/19/17 22:14 Last Admin: 03/22/17 08:27 Dose: 100 mls/hr Ipratropium [place] (Atrovent Neb 0.5mg/2.5ml) 0.5 mg HHN Q6H PRN PRN Reason: Shortness of Breath Stop: 05/19/17 22:01 [place] Carbonate (Eskalith) 300 mg PO HS [facility]ZMARIA PRN Reason: Protocol Stop: 05/20/17 20:59 Last Admin: 03/21/17 22:16 Dose: 300 mg Lorazepam (Ativan) 1 mg IVP Q4H PRN; Protocol PRN Reason: Anxiety/Agitation Stop: 06/22/17 22:01 Magnesium Hydroxide (Milk Of Magnesia) 30 ml PO HS PRN PRN Reason: Constipation Stop: 05/19/17 22:01 Miscellaneous (Clinical Monitoring) 1 ea MC DAILY PRN PRN Reason: RENAL Stop: 05/20/17 07:28 Ondansetron HCl (Zofran Odt) 4 mg PO Q6H PRN PRN Reason: Nausea / Vomiting Stop: 05/19/17 22:01 Thiamine HCl (Vitamin B1) 100 mg PO DAILY [facility]MARIA Stop: 05/21/17 08:59 Last Admin: 03/22/17 08:26 Dose: 100 mg Trazodone HCl (Desyrel) 50 mg PO HS [place]UMZARIA PRN Reason: Protocol Stop: 05/20/17 20:59 Last Admin: 03/21/17 22:16 Dose: 50 mg Na same @ 126 BUN/CR improving to 38/1.9 started to eat & on ivf encouraged increase po intake f/u electrolytes
[2017-03-24] MEDS: Benztropine 1 MG TAB PO SCH (21:37)
--- NOTE | 2017-03-25 01:23 | Progress Notes ---
DATE: 03/24/2017 SUBJECTIVE: The patient is awake and alert. The patient is receiving inpatient neb treatment. The patient is on IV fluids. OBJECTIVE: VITAL SIGNS: Temperature 98.1, pulse 74, blood pressure per nursing, respiratory rate 18, O2 saturation is 96% on room air. CARDIOVASCULAR: S1 and S2. RESPIRATORY: Clear. ABDOMEN: Soft. Positive bowel sounds. LABORATORY DATA: CBC: per labs. Chemistry: Sodium 126, potassium 3.7, chloride 102, bicarbonate 21, anion gap 6.1, BUN 38, creatinine per labs GFR is 48.5, glucose 117, calcium 8.6, phos 2.8 and mag is 2.8. Total bili is 0.4, direct bili 0.12, AST 210, ALT is 86, alk phos 38, total protein 6.0, albumin 2.9 and globulin 3.1. Microbiology: MRSA screen from 03/20/2017, positive. ASSESSMENT: 1. Methicillin-resistant Staphylococcus aureus colonization. 2. Leukopenia. 3. Anemia. 4. Hyponatremia. 5. Acute kidney injury (improved). 6. Hyperglycemia. 7. Hypermagnesemia. 8. Transaminitis. 9. Hypoalbuminemia. 10. Asthma. 11. Psychosis. 12. Polysubstance dependence. PLAN: Continue current medication. Obtain labs in a.m. Continue IV fluids. JOB# [id number]
[2017-03-25] MEDS: Hydrocodone/APAP 10 mg/325 mg Tab PO PRN (05:29)
[2017-03-25 05:59] LABS: % BASOPHILS 0.3 % (0.0-2.0); % LYMPHOCYTES 21.6 % (20.0-50.0); % MONOCYTES 12.9 % (2.0-10.0); % NEUTROPHILS 64.2 % (40.0-80.0); HEMOGLOBIN 11.2 gm/dL (13.2-17.3); MEAN CELL VOLUME 86.4 fl (80-99); MEAN CORPUSCULAR HEMOGLOBIN 29.2 pg (26.0-30.0); MEAN CORPUSCULAR HGB CONC 33.8 pg (28.0-36.0); MEAN PLATELET VOLUME 8.1 fl; NEUTROPHILE ABSOLUTE 6.2 Th/cmm (1.8-8.0); PLATELET COUNT 231 Th/cmm (150-400); RED BLOOD COUNT 3.82 Mil/cmm (4.30-5.70); RED CELL DISTRIBUTION WIDTH 12.6 % (11.5-20.0)
[2017-03-25 06:19] LABS: CERULOPLASMIN 36.4 mg/dL (16.0-31.0); FERRITIN 5024 ng/mL (30-400); HEP B CORE IGM Negative (Negative); HEP C ANTIBODY <0.1 s/co ratio (0.0-0.9)
[2017-03-25 06:24] LABS: WHITE BLOOD COUNT 9.6 Th/cmm (4.8-10.8)
[2017-03-25 06:34] LABS: ALB/GLOB RATIO 0.9 (1.0-1.8); ANION GAP 6.6 (7.0-16.0); BILIRUBIN,TOTAL 0.5 mg/dL (0.3-1.0); BUN/CREATININE RATIO 18.8; CALCIUM SERUM 8.9 mg/dL (8.6-10.3); CARBON DIOXIDE 23.1 mEq/L (21.0-31.0); CREATININE - SERUM 1.7 mg/dL (0.7-1.3); MAGNESIUM 2.8 mg/dL (1.9-2.7); PHOSPHOROUS 2.2 mg/dL (2.5-5.0); POTASSIUM SERUM 3.7 mEq/L (3.5-5.1)
--- NOTE | 2017-03-25 12:14 | Diagnostic Imaging Report ---
CT abdomen and pelvis without intravenous contrast Indication: Abdominal pain Comparison: Nuclear medicine HIDA scan on 03/24/2017 ultrasound abdomen on 03/22/2017, Technique: Axial images were obtained from the lung bases to the bilateral proximal femurs without IV contrast. Coronal reconstructions were made. total DLP: 335, CTDI6.7 Findings: Hypoventilatory atelectatic changes of the lungs are noted. Exam is limited due to lack of IV contrast and motion. No evidence of focal hepatic lesions. Mildly distended gallbladder is noted. No radiopaque gallstones are identified. Borderline prominent spleen is noted with no evidence of focal lesions. Limited assessment of the pancreas demonstrates no obvious focal lesions. No evidence of renal stones or hydronephrosis. The adrenal glands are poorly visualized on this exam. Robles catheter seen within the collapsed bladder. Pockets of gas are seen along the anterior aspect of the urinary bladder. Pelvic calcifications are noted likely representing phleboliths. There is generalized gaseous distended loops of primarily large bowel. No evidence of appendicitis. No free air or free fluid. Degenerative changes of the spine are noted. Moderate atherosclerosis is noted. IMPRESSION: Limited exam due to motion and lack of IV contrast. Generalized gaseous distended loops of primarily large bowel which may be due to a colonic ileus. No focal hepatic abnormalities identified Mildly distended gallbladder. No evidence of radiopaque gallstones. Borderline splenomegaly. Moderate atherosclerotic vascular disease. Robles catheter within collapsed urinary bladder. Pockets of gas are seen along the anterior aspect of the urinary bladder which may be due to instrumentation or less likely infectious/inflammatory process.
--- NOTE | 2017-03-25 13:38 | General Progress Note ---
Subjective - Review of Systems Service Date: 03/25/17 Subjective: sleeping, arousable, eating today & on ivf Objective - Results Result Diagrams: 03/25/17 05:30 03/25/17 05:30 Recent Labs: Laboratory Last Values WBC 9.6 Th/cmm (4.8-10.8) D 03/25/17 05:30 RBC 3.82 Mil/cmm (4.30-5.70) L 03/25/17 05:30 Hgb 11.2 gm/dL (13.2-17.3) L 03/25/17 05:30 Hct 33.0 % (39.0-49.0) L 03/25/17 05:30 MCV 86.4 fl (80-99) 03/25/17 05:30 MCH 29.2 pg (26.0-30.0) 03/25/17 05:30 MCHC Differential 33.8 pg (28.0-36.0) 03/25/17 05:30 RDW 12.6 % (11.5-20.0) 03/25/17 05:30 Plt Count 231 Th/cmm (150-400) 03/25/17 05:30 MPV 8.1 fl 03/25/17 05:30 Neutrophils % 64.2 % (40.0-80.0) 03/25/17 05:30 Band Neutrophils % 3 % (0-10) 03/23/17 06:10 Lymphocytes % 21.6 % (20.0-50.0) 03/25/17 05:30 Monocytes % 12.9 % (2.0-10.0) H 03/25/17 05:30 Eosinophils % 1.0 % (0.0-5.0) 03/25/17 05:30 Basophils % 0.3 % (0.0-2.0) 03/25/17 05:30 Neutrophils (Manual) 80 % (40-80) 03/23/17 06:10 Lymphocytes 9 % (20-50) L 03/23/17 06:10 Monocytes 7 % (2-10) 03/23/17 06:10 Eosinophils 1 % (0-5) 03/23/17 06:10 Platelet Estimate ADEQUATE (NORMAL) 03/23/17 06:10 Platelet Morphology NORMAL (NORMAL) 03/23/17 06:10 RBC Morph Micro Appear NORMAL (NORMAL) 03/23/17 06:10 Eos Smear Source URINE 03/22/17 00:30 Eos Smear Total Cells NONE SEEN (NONE SEEN) 03/22/17 00:30 Sodium 130 mEq/L (136-145) L 03/25/17 05:30 Potassium 3.7 mEq/L (3.5-5.1) 03/25/17 05:30 Chloride 104 mEq/L (98-107) 03/25/17 05:30 Carbon Dioxide 23.1 mEq/L (21.0-31.0) 03/25/17 05:30 Anion Gap 6.6 (7.0-16.0) L 03/25/17 05:30 BUN 32 mg/dL (7-25) H 03/25/17 05:30 Creatinine 1.7 mg/dL (0.7-1.3) H 03/25/17 05:30 Est GFR ( Amer) 55.1 ml/min (>90) 03/25/17 05:30 Est GFR (Non-Af Amer) 45.6 ml/min 03/25/17 05:30 BUN/Creatinine Ratio 18.8 03/25/17 05:30 Glucose 165 mg/dL (70-105) H 03/25/17 05:30 Plasma/Ser Osmolality 279 mOsmol/kg (275-295) 03/22/17 00:30 Uric Acid 10.1 mg/dL (4.4-7.6) H 03/22/17 06:00 Calcium 8.9 mg/dL (8.6-10.3) 03/25/17 05:30 Phosphorus 2.2 mg/dL (2.5-5.0) L 03/25/17 05:30 Magnesium 2.8 mg/dL (1.9-2.7) H 03/25/17 05:30 Ferritin 5024 ng/mL (30-400) H 03/23/17 06:10 Total Bilirubin 0.5 mg/dL (0.3-1.0) 03/25/17 05:30 Direct Bilirubin 0.12 mg/dL (0.0-0.2) 03/24/17 05:00 AST 198 U/L (13-39) H 03/25/17 05:30 ALT 107 U/L (7-52) H 03/25/17 05:30 Alkaline Phosphatase 45 U/L (34-104) 03/25/17 05:30 Total Protein 6.5 gm/dL (6.0-8.3) 03/25/17 05:30 Albumin 3.1 gm/dL (4.2-5.5) L 03/25/17 05:30 Globulin 3.4 gm/dL 03/25/17 05:30 Albumin/Globulin Ratio 0.9 (1.0-1.8) L 03/25/17 05:30 Ceruloplasmin 36.4 mg/dL (16.0-31.0) H 03/23/17 06:10 Urine Osmolality 305 mOsmol/kg 03/22/17 00:30 Ur Random Sodium 12 mmol/L 03/22/17 00:30 Urine Creatinine 86.1 mg/dl (Not Estab.) 03/22/17 00:30 Urine Microalbumin 1521.4 ug/mL (Not Estab.) 03/22/17 00:30 Microalb/Creat Ratio 1767.0 mg/g creat (0.0-30.0) H 03/22/17 00:30 Urine Opiates Screen NEGATIVE (NEGATIVE) 03/22/17 00:30 Urine Methadone Screen NEGATIVE (NEGATIVE) 03/22/17 00:30 Ur Barbiturates Screen NEGATIVE (NEGATIVE) 03/22/17 00:30 Ur Tricyclics Screen NEGATIVE (NEGATIVE) 03/22/17 00:30 Ur Phencyclidine Scrn NEGATIVE (NEGATIVE) 03/22/17 00:30 Amphetamines Screen NEGATIVE (NEGATIVE) 03/22/17 00:30 U Methamphetamines Scrn NEGATIVE (NEGATIVE) 03/22/17 00:30 U Benzodiazepines Scrn NEGATIVE (NEGATIVE) 03/22/17 00:30 [place] 0.91 MEQ/L (0.50-1.00) 03/21/17 04:32 U Cocaine Metab Screen NEGATIVE (NEGATIVE) 03/22/17 00:30 U Cannabinoids Screen POSITIVE (NEGATIVE) H 03/22/17 00:30 Hepatitis A IgM Ab Negative (Negative) 03/23/17 06:10 Hep Bs Antigen Negative (Negative) 03/23/17 06:10 Hep B Core IgM Ab Negative (Negative) 03/23/17 06:10 Hepatitis C Antibody <0.1 s/co ratio (0.0-0.9) 03/23/17 06:10 - Physical Exam Vitals and I&O: Vital Signs Temp 98 F 03/25/17 08:00 Pulse 75 03/25/17 08:00 Resp 18 03/25/17 08:00 BP 110/60 03/25/17 08:00 Pulse Ox 99 03/25/17 08:00 Intake & Output 03/24/17 03/25/17 03/25/17 18:59 06:59 18:59 Intake Total 100 360 Output Total 200 1400 Balance -200 100 -1040 Intake: Oral 100 360 Output: Urine 200 1400 Other: # Bowel Movements 0 Active Medications: Current Medications Acetaminophen (Tylenol) 650 mg PO Q6H PRN PRN Reason: Mild Pain/Headache/T above 101 Stop: 05/19/17 22:01 Last Admin: 03/22/17 22:10 Dose: 650 mg Acetaminophen/Hydrocodone Bitart ([place] 10 Mg/325 Mg) 1 tab PO Q6H PRN PRN Reason: Severe Pain Stop: 05/19/17 22:01 Last Admin: 03/25/17 05:29 Dose: 1 tab Acetaminophen/Hydrocodone Bitart ([place] 5mg/325mg) 1 tab PO Q6H PRN PRN Reason: Moderate Pain Stop: 05/19/17 22:01 Al Hydrox/Mg Hydrox/Simethicone (Maalox) 30 ml PO Q6H PRN PRN Reason: GI UPSET Stop: 05/19/17 22:01 Albuterol Sulfate (Albuterol 2.5mg/3ml Neb Ud) 2.5 mg HHN Q6H PRN PRN Reason: Shortness of Breath Stop: 05/19/17 22:01 Benztropine Mesylate (Cogentin) 2 mg PO HS [place]ZMAR[place] Stop: 05/20/17 20:59 Last Admin: 03/24/17 21:37 Dose: 2 mg Folic Acid (Folate) 1 mg PO DAILY [place]ZMAR[place] Stop: 05/21/17 08:59 Last Admin: 03/25/17 08:33 Dose: 1 mg Gabapentin (Neurontin) 300 mg PO TID [place]MAR[place] Stop: 05/20/17 13:59 Last Admin: 03/25/17 08:32 Dose: 300 mg Haloperidol (Haldol) 10 mg PO BID [place]MAR[place] Stop: 05/20/17 08:59 Last Admin: 03/25/17 08:33 Dose: 10 mg Dextrose/Sodium Chloride (D5-0.9%Ns) 1,000 mls @ 100 mls/hr IV .Q10H [facility]MAR[place] Stop: 05/19/17 22:14 Last Admin: 03/22/17 08:27 Dose: 100 mls/hr Ipratropium [place] (Atrovent Neb 0.5mg/2.5ml) 0.5 mg HHN Q6H PRN PRN Reason: Shortness of Breath Stop: 05/19/17 22:01 [place] Carbonate (Eskalith) 300 mg PO HS LUZMARIA PRN Reason: Protocol Stop: 05/20/17 20:59 Last Admin: 03/24/17 21:38 Dose: 300 mg Lorazepam (Ativan) 1 mg IVP Q4H PRN; Protocol PRN Reason: Anxiety/Agitation Stop: 05/19/17 22:01 Magnesium Hydroxide (Milk Of Magnesia) 30 ml PO HS PRN PRN Reason: Constipation Stop: 05/19/17 22:01 Miscellaneous (Clinical Monitoring) 1 ea MC DAILY PRN PRN Reason: RENAL Stop: 05/20/17 07:28 Mupirocin (Bactroban Oint) 1 appl NS BID [facility] Stop: 03/27/17 09:01 Last Admin: 03/25/17 09:08 Dose: 1 appl Ondansetron HCl (Zofran Odt) 4 mg PO Q6H PRN PRN Reason: Nausea / Vomiting Stop: 05/19/17 22:01 Thiamine HCl (Vitamin B1) 100 mg PO DAILY LUZMARIA Stop: 05/21/17 08:59 Last Admin: 03/25/17 08:32 Dose: 100 mg Trazodone HCl (Desyrel) 50 mg PO HS [place] PRN Reason: Protocol Stop: 05/20/17 20:59 Last Admin: 03/24/17 21:38 Dose: 50 mg General: No acute distress HEENT: Atraumatic, Mucous membr. moist/pink Neck: Supple, +2 carotid pulse wo bruit Cardiovascular: Regular rate, Normal S1, Normal S2 Lungs: Clear to auscultation Abdomen: Bowel sounds, Soft Extremities: no Edema Neurological: Sensation intact Skin: no Rash Assessment/Plan - Assessment Assessment: ERICA on CKD Hyponatremia 2nd to Na loss watery diarrhea possible acute gastroenteritis, C. Diff Gen. 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, illegal drugs) - Plan Plan: Lab - Result Diagrams 03/22/17 06:00 03/22/17 06:00 Current Medications Acetaminophen (Tylenol) 650 mg PO Q6H PRN PRN Reason: Mild Pain/Headache/T above 101 Stop: 05/19/17 22:01 Last Admin: 03/21/17 22:17 Dose: 650 mg Acetaminophen/Hydrocodone Bitart ([place] 10 Mg/325 Mg) 1 tab PO Q6H PRN PRN Reason: Severe Pain Stop: 05/19/17 22:01 Last Admin: 03/21/17 18:37 Dose: 1 tab Acetaminophen/Hydrocodone Bitart ([place] 5mg/325mg) 1 tab PO Q6H PRN PRN Reason: Moderate Pain Stop: 05/19/17 22:01 Al Hydrox/Mg Hydrox/Simethicone (Maalox) 30 ml PO Q6H PRN PRN Reason: Constipation Stop: 05/19/17 22:01 Albuterol Sulfate (Albuterol 2.5mg/3ml Neb Ud) 2.5 mg HHN Q6H PRN PRN Reason: Shortness of Breath Stop: 05/19/17 22:01 Benztropine Mesylate (Cogentin) 2 mg PO HS [place] Stop: 05/20/17 20:59 Last Admin: 03/21/17 22:16 Dose: 2 mg Folic Acid (Folate) 1 mg PO DAILY [place] Stop: 05/21/17 08:59 Last Admin: 03/22/17 08:26 Dose: 1 mg Gabapentin (Neurontin) 300 mg PO TID [place] Stop: 05/20/17 13:59 Last Admin: 03/22/17 08:26 Dose: 300 mg Haloperidol (Haldol) 10 mg PO BID [place] Stop: 05/20/17 08:59 Last Admin: 03/22/17 16:25 Dose: 10 mg Dextrose/Sodium Chloride (D5-0.9%Ns) 1,000 mls @ 100 mls/hr IV .Q10H [place] Stop: 05/19/17 22:14 Last Admin: 03/22/17 08:27 Dose: 100 mls/hr Ipratropium [place] (Atrovent Neb 0.5mg/2.5ml) 0.5 mg HHN Q6H PRN PRN Reason: Shortness of Breath Stop: 05/19/17 22:01 [place] Carbonate (Eskalith) 300 mg PO HS LUZMARIA PRN Reason: Protocol Stop: 05/20/17 20:59 Last Admin: 03/21/17 22:16 Dose: 300 mg Lorazepam (Ativan) 1 mg IVP Q4H PRN; Protocol PRN Reason: Anxiety/Agitation Stop: 05/19/17 22:01 Magnesium Hydroxide (Milk Of Magnesia) 30 ml PO HS PRN PRN Reason: Constipation Stop: 05/19/17 22:01 Miscellaneous (Clinical Monitoring) 1 ea MC DAILY PRN PRN Reason: RENAL Stop: 05/20/17 07:28 Ondansetron HCl (Zofran Odt) 4 mg PO Q6H PRN PRN Reason: Nausea / Vomiting Stop: 05/19/17 22:01 Thiamine HCl (Vitamin B1) 100 mg PO DAILY LUZMARIA Stop: 05/21/17 08:59 Last Admin: 03/22/17 08:26 Dose: 100 mg Trazodone HCl (Desyrel) 50 mg PO HS LUZMARIA PRN Reason: Protocol Stop: 05/20/17 20:59 Last Admin: 03/21/17 22:16 Dose: 50 mg Na up to 130 BUN/CR improving to 32/1.7 started to eat & on ivf encouraged increase po intake f/u electrolytes
[2017-03-25] MEDS: D5-0.9%NS 1,000 ML IV SCH ×2 (17:22→22:27)
[2017-03-25] MEDS: Benztropine 1 MG TAB PO SCH (22:28)
[2017-03-25] MEDS: Magnesium Hydroxide (MOM) 30 mL UDC PO PRN (22:54)
[2017-03-26] MEDS: Hydrocodone/APAP 10 mg/325 mg Tab PO PRN ×3 (02:01→21:09)
[2017-03-26] MEDS: Hydrocodone/APAP 5mg/325mg Tab PO PRN ×2 (05:59→10:01)
[2017-03-26] MEDS: D5-0.9%NS 1,000 ML IV SCH (05:59)
--- NOTE | 2017-03-26 06:27 | Progress Notes ---
DATE: 03/25/2017 SUBJECTIVE: The patient is awake, alert. The patient is on IV fluids. OBJECTIVE: VITAL SIGNS: Temperature 98, pulse 75, blood pressure 110/60, respirations 18, O2 saturation 98 % on room air. CARDIOVASCULAR: S1 and S2. RESPIRATORY: Clear. GASTROINTESTINAL: Soft. Positive bowel sounds. LABORATORY DATA: Labs on the patient is hematology, WBC 9.6, hemoglobin 9.2, hematocrit 28.0, platelet count of 231, 12% lymphocytes. Chemistry: Sodium 130, potassium 3.7, chloride 104, bicarbonate 23, anion gap 6.6, BUN 32, creatinine 1.7. GFR is 55.1, glucose 165, calcium 8.9, phosphorus 2.2, mag is 2.8, total bili is 0.5, AST is 198, ALT 107, alkaline phosphatase of 45, total protein 6.5, albumin 3.1, globulin 3.4. MICROBIOLOGY: MRSA screen, March 20, positive. ASSESSMENT: 1. Anemia. 2. Hyponatremia. 3. Acute kidney injury (improved). 4. Hyperglycemia. 5. Hypophosphatemia. 6. Hypermagnesemia. 7. Transaminitis. 8. Hypoalbuminemia. 9. Asthma. 10. Psychosis. 11. Polysubstance dependence. PLAN: Continue current medications. Obtain labs. Continue IV fluids. Further consults. ADDENDUM: The patient had a HIDA scan done on 03/24, states cholecystitis cannot be excluded. Thank you very much. JOB# [id number] [facility]
[2017-03-26 07:36] LABS: ALB/GLOB RATIO 0.9 (1.0-1.8); ALKALINE PHOSPHATASE 40 U/L (34-104); ANION GAP 6.7 (7.0-16.0); BILIRUBIN,TOTAL 0.4 mg/dL (0.3-1.0); BUN - UREA NITROGEN 24 mg/dL (7-25); CALCIUM SERUM 8.3 mg/dL (8.6-10.3); CARBON DIOXIDE 22.8 mEq/L (21.0-31.0); CHLORIDE 105 mEq/L (98-107); CREATININE - SERUM 1.5 mg/dL (0.7-1.3); GLUCOSE 124 mg/dL (70-105); MAGNESIUM 2.6 mg/dL (1.9-2.7); PHOSPHOROUS 1.9 mg/dL (2.5-5.0); POTASSIUM SERUM 3.5 mEq/L (3.5-5.1); SGOT 135 U/L (13-39); SGPT/ALT 93 U/L (7-52); SODIUM SERUM 131 mEq/L (136-145)
[2017-03-26 08:35] LABS: HEMATOCRIT 27.2 % (39.0-49.0); HEMOGLOBIN 9.7 gm/dL (13.2-17.3); MEAN CELL VOLUME 88.3 fl (80-99); MEAN CORPUSCULAR HEMOGLOBIN 31.7 pg (26.0-30.0); MEAN CORPUSCULAR HGB CONC 35.9 pg (28.0-36.0); MEAN PLATELET VOLUME 8.8 fl; RED BLOOD COUNT 3.08 Mil/cmm (4.30-5.70); RED CELL DISTRIBUTION WIDTH 12.6 % (11.5-20.0); WHITE BLOOD COUNT 9.9 Th/cmm (4.8-10.8)
[2017-03-26 09:21] LABS: PLATELET COUNT 230 Th/cmm (150-400); TOTAL CELLS COUNTED 100
[2017-03-26 09:22] LABS: BAND NEUTROPHILE 1 % (0-10); EOSINOPHIL 2 % (0-5); NEUTROPHILS 60 % (40-80)
[2017-03-26 09:23] LABS: PLATELET ESTIMATE ADEQUATE (NORMAL)
--- NOTE | 2017-03-26 10:15 | Diagnostic Imaging Report ---
Ultrasound urinary bladder History: No urinary output Comparison: CT abdomen and pelvis on 03/25/2017 Technique: Sonography of the pelvis was performed in multiple planes. Findings: The prevoid bladder volume is 774 mL's. The patient was unable to void during exam. No evidence of urinary bladder wall thickening. Prominent heterogeneous prostate gland is seen with mass effect upon the base of the urinary bladder. The prostate gland measures 4.7 x 4.2 x 4.7 cm. Bilateral bladder jets were visualized. IMPRESSION: Distended urinary bladder measuring 774 mL's. Note, patient was not able to void during the exam. Heterogeneous, mildly prominent prostate gland with mass effect upon the base of the urinary bladder. Please correlate with clinical findings.
[2017-03-26] MEDS ORDERED: Potassium Phosphate 20 MMOLE in Sodium Chloride 0.9% 250 ML IV ONE (11:45)
--- NOTE | 2017-03-26 14:53 | General Progress Note ---
Subjective - Review of Systems Service Date: 03/26/17 Subjective: agitated today Objective - Results Result Diagrams: 03/26/17 06:41 03/26/17 06:41 Recent Labs: Laboratory Last Values WBC 9.9 Th/cmm (4.8-10.8) 03/26/17 06:41 RBC 3.08 Mil/cmm (4.30-5.70) L 03/26/17 06:41 Hgb 9.7 gm/dL (13.2-17.3) L 03/26/17 06:41 Hct 27.2 % (39.0-49.0) L D 03/26/17 06:41 MCV 88.3 fl (80-99) 03/26/17 06:41 MCH 31.7 pg (26.0-30.0) H 03/26/17 06:41 MCHC Differential 35.9 pg (28.0-36.0) 03/26/17 06:41 RDW 12.6 % (11.5-20.0) 03/26/17 06:41 Plt Count 230 Th/cmm (150-400) 03/26/17 06:41 MPV 8.8 fl 03/26/17 06:41 Neutrophils % 64.2 % (40.0-80.0) 03/25/17 05:30 Band Neutrophils % 1 % (0-10) 03/26/17 06:41 Lymphocytes % 21.6 % (20.0-50.0) 03/25/17 05:30 Monocytes % 12.9 % (2.0-10.0) H 03/25/17 05:30 Eosinophils % 1.0 % (0.0-5.0) 03/25/17 05:30 Basophils % 0.3 % (0.0-2.0) 03/25/17 05:30 Neutrophils (Manual) 60 % (40-80) 03/26/17 06:41 Lymphocytes 31 % (20-50) 03/26/17 06:41 Monocytes 6 % (2-10) 03/26/17 06:41 Eosinophils 2 % (0-5) 03/26/17 06:41 Platelet Estimate ADEQUATE (NORMAL) 03/26/17 06:41 Platelet Morphology NORMAL (NORMAL) 03/23/17 06:10 RBC Morph Micro Appear NORMAL (NORMAL) 03/23/17 06:10 Eos Smear Source URINE 03/22/17 00:30 Eos Smear Total Cells NONE SEEN (NONE SEEN) 03/22/17 00:30 Sodium 131 mEq/L (136-145) L 03/26/17 06:41 Potassium 3.5 mEq/L (3.5-5.1) 03/26/17 06:41 Chloride 105 mEq/L (98-107) 03/26/17 06:41 Carbon Dioxide 22.8 mEq/L (21.0-31.0) 03/26/17 06:41 Anion Gap 6.7 (7.0-16.0) L 03/26/17 06:41 BUN 24 mg/dL (7-25) 03/26/17 06:41 Creatinine 1.5 mg/dL (0.7-1.3) H 03/26/17 06:41 Est GFR ( Amer) > 60.0 ml/min (>90) 03/26/17 06:41 Est GFR (Non-Af Amer) 52.7 ml/min 03/26/17 06:41 BUN/Creatinine Ratio 16.0 03/26/17 06:41 Glucose 124 mg/dL (70-105) H 03/26/17 06:41 Plasma/Ser Osmolality 279 mOsmol/kg (275-295) 03/22/17 00:30 Uric Acid 10.1 mg/dL (4.4-7.6) H 03/22/17 06:00 Calcium 8.3 mg/dL (8.6-10.3) L 03/26/17 06:41 Phosphorus 1.9 mg/dL (2.5-5.0) L 03/26/17 06:41 Magnesium 2.6 mg/dL (1.9-2.7) 03/26/17 06:41 Ferritin 5024 ng/mL (30-400) H 03/23/17 06:10 Total Bilirubin 0.4 mg/dL (0.3-1.0) 03/26/17 06:41 Direct Bilirubin 0.12 mg/dL (0.0-0.2) 03/24/17 05:00 AST 135 U/L (13-39) H 03/26/17 06:41 ALT 93 U/L (7-52) H 03/26/17 06:41 Alkaline Phosphatase 40 U/L (34-104) 03/26/17 06:41 Total Protein 5.6 gm/dL (6.0-8.3) L 03/26/17 06:41 Albumin 2.6 gm/dL (4.2-5.5) L 03/26/17 06:41 Globulin 3.0 gm/dL 03/26/17 06:41 Albumin/Globulin Ratio 0.9 (1.0-1.8) L 03/26/17 06:41 Ceruloplasmin 36.4 mg/dL (16.0-31.0) H 03/23/17 06:10 Urine Osmolality 305 mOsmol/kg 03/22/17 00:30 Ur Random Sodium 12 mmol/L 03/22/17 00:30 Urine Creatinine 86.1 mg/dl (Not Estab.) 03/22/17 00:30 Urine Microalbumin 1521.4 ug/mL (Not Estab.) 03/22/17 00:30 Microalb/Creat Ratio 1767.0 mg/g creat (0.0-30.0) H 03/22/17 00:30 Urine Opiates Screen NEGATIVE (NEGATIVE) 03/22/17 00:30 Urine Methadone Screen NEGATIVE (NEGATIVE) 03/22/17 00:30 Ur Barbiturates Screen NEGATIVE (NEGATIVE) 03/22/17 00:30 Ur Tricyclics Screen NEGATIVE (NEGATIVE) 03/22/17 00:30 Ur Phencyclidine Scrn NEGATIVE (NEGATIVE) 03/22/17 00:30 Amphetamines Screen NEGATIVE (NEGATIVE) 03/22/17 00:30 U Methamphetamines Scrn NEGATIVE (NEGATIVE) 03/22/17 00:30 U Benzodiazepines Scrn NEGATIVE (NEGATIVE) 03/22/17 00:30 [place] 0.91 MEQ/L (0.50-1.00) 03/21/17 04:32 U Cocaine Metab Screen NEGATIVE (NEGATIVE) 03/22/17 00:30 U Cannabinoids Screen POSITIVE (NEGATIVE) H 03/22/17 00:30 Hepatitis A IgM Ab Negative (Negative) 03/23/17 06:10 Hep Bs Antigen Negative (Negative) 03/23/17 06:10 Hep B Core IgM Ab Negative (Negative) 03/23/17 06:10 Hepatitis C Antibody <0.1 s/co ratio (0.0-0.9) 03/23/17 06:10 - Physical Exam Vitals and I&O: Vital Signs Temp 98.1 F 03/26/17 11:31 Pulse 68 03/26/17 11:31 Resp 19 03/26/17 11:31 BP 125/66 03/26/17 11:31 Pulse Ox 97 03/26/17 11:31 Intake & Output 03/25/17 03/26/17 03/26/17 18:59 06:59 18:59 Intake Total 360 1501.666 Output Total 1400 1200 Balance -1040 301.666 Weight (lbs) 75.432 kg Intake: Intake, IV Amount 1261.666 D5-0.9%Ns 1,000 ml @ 100 1261.666 mls/hr IV .Q10H LUZMARIA Rx#: [id number] Oral 360 240 Output: Urine 1400 1200 Other: # Bowel Movements 0 Active Medications: Current Medications Acetaminophen (Tylenol) 650 mg PO Q6H PRN PRN Reason: Mild Pain/Headache/T above 101 Stop: 05/19/17 22:01 Last Admin: 03/22/17 22:10 Dose: 650 mg Acetaminophen/Hydrocodone Bitart ([place] 10 Mg/325 Mg) 1 tab PO Q6H PRN PRN Reason: Severe Pain Stop: 05/19/17 22:01 Last Admin: 03/26/17 02:01 Dose: 1 tab Acetaminophen/Hydrocodone Bitart ([place] 5mg/325mg) 1 tab PO Q6H PRN PRN Reason: Moderate Pain Stop: 05/19/17 22:01 Last Admin: 03/26/17 10:01 Dose: 1 tab Al Hydrox/Mg Hydrox/Simethicone (Maalox) 30 ml PO Q6H PRN PRN Reason: GI UPSET Stop: 05/19/17 22:01 Albuterol Sulfate (Albuterol 2.5mg/3ml Neb Ud) 2.5 mg HHN Q6H PRN PRN Reason: Shortness of Breath Stop: 05/19/17 22:01 Benztropine Mesylate (Cogentin) 2 mg PO HS LUZMARIA Stop: 05/20/17 20:59 Last Admin: 03/25/17 22:28 Dose: 2 mg Folic Acid (Folate) 1 mg PO DAILY LU[facility]MARIA Stop: 05/21/17 08:59 Last Admin: 03/26/17 08:56 Dose: 1 mg Gabapentin (Neurontin) 300 mg PO TID LUZMARIA Stop: 05/20/17 13:59 Last Admin: 03/26/17 08:55 Dose: 300 mg Haloperidol (Haldol) 10 mg PO BID [facility]MAR[facility] Stop: 05/20/17 08:59 Last Admin: 03/26/17 08:56 Dose: 10 mg Dextrose/Sodium Chloride (D5-0.9%Ns) 1,000 mls @ 100 mls/hr IV .Q10H LUZMARIA Stop: 05/19/17 22:14 Last Admin: 03/26/17 05:59 Dose: 100 mls/hr Potassium Phosphate 20 mmole/ (Sodium Chloride) 256.6667 mls @ 42.5 mls/hr IV X1 ONE Stop: 03/26/17 17:47 Last Admin: 03/26/17 12:20 Dose: 42.5 mls/hr Ipratropium [place] (Atrovent Neb 0.5mg/2.5ml) 0.5 mg HHN Q6H PRN PRN Reason: Shortness of Breath Stop: 05/19/17 22:01 [place] Carbonate (Eskalith) 300 mg PO HS LUZMARIA PRN Reason: Protocol Stop: 05/20/17 20:59 Last Admin: 03/25/17 22:45 Dose: 300 mg Lorazepam (Ativan) 1 mg IVP Q4H PRN; Protocol PRN Reason: Anxiety/Agitation Stop: 05/19/17 22:01 Last Admin: 03/26/17 09:58 Dose: 1 mg Magnesium Hydroxide (Milk Of Magnesia) 30 ml PO HS PRN PRN Reason: Constipation Stop: 05/19/17 22:01 Last Admin: 03/25/17 22:54 Dose: 30 ml Miscellaneous (Clinical Monitoring) 1 ea MC DAILY PRN PRN Reason: RENAL Stop: 05/20/17 07:28 Mupirocin (Bactroban Oint) 1 appl NS BID [facility] Stop: 03/27/17 09:01 Last Admin: 03/26/17 08:57 Dose: 1 appl Ondansetron HCl (Zofran Odt) 4 mg PO Q6H PRN PRN Reason: Nausea / Vomiting Stop: 05/19/17 22:01 Thiamine HCl (Vitamin B1) 100 mg PO DAILY LUZMARIA Stop: 05/21/17 08:59 Last Admin: 03/26/17 08:56 Dose: 100 mg Trazodone HCl (Desyrel) 50 mg PO HS [facility] PRN Reason: Protocol Stop: 05/20/17 20:59 Last Admin: 03/25/17 22:28 Dose: 50 mg General: Alert, Other (uncooperative) HEENT: Atraumatic, Mucous membr. moist/pink Neck: Supple, +2 carotid pulse wo bruit Cardiovascular: Regular rate, Normal S1, Normal S2 Lungs: Clear to auscultation Abdomen: Bowel sounds, Soft Extremities: no Edema Neurological: Sensation intact Skin: no Rash Assessment/Plan - Assessment Assessment: ERICA on CKD Hyponatremia 2nd to Na loss watery diarrhea possible acute gastroenteritis, C. Diff Gen. 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, illegal drugs) outlet obstruction 2/2 BPH - Plan Plan: Lab - Result Diagrams 03/22/17 06:00 03/22/17 06:00 Current Medications Acetaminophen (Tylenol) 650 mg PO Q6H PRN PRN Reason: Mild Pain/Headache/T above 101 Stop: 05/19/17 22:01 Last Admin: 03/21/17 22:17 Dose: 650 mg Acetaminophen/Hydrocodone Bitart ([place] 10 Mg/325 Mg) 1 tab PO Q6H PRN PRN Reason: Severe Pain Stop: 05/19/17 22:01 Last Admin: 03/21/17 18:37 Dose: 1 tab Acetaminophen/Hydrocodone Bitart ([place] 5mg/325mg) 1 tab PO Q6H PRN PRN Reason: Moderate Pain Stop: 05/19/17 22:01 Al Hydrox/Mg Hydrox/Simethicone (Maalox) 30 ml PO Q6H PRN PRN Reason: Constipation Stop: 05/19/17 22:01 Albuterol Sulfate (Albuterol 2.5mg/3ml Neb Ud) 2.5 mg HHN Q6H PRN PRN Reason: Shortness of Breath Stop: 05/19/17 22:01 Benztropine Mesylate (Cogentin) 2 mg PO HS [facility] Stop: 05/20/17 20:59 Last Admin: 03/21/17 22:16 Dose: 2 mg Folic Acid (Folate) 1 mg PO DAILY [facility] Stop: 05/21/17 08:59 Last Admin: 03/22/17 08:26 Dose: 1 mg Gabapentin (Neurontin) 300 mg PO TID LU[facility]MARIA Stop: 05/20/17 13:59 Last Admin: 03/22/17 08:26 Dose: 300 mg Haloperidol (Haldol) 10 mg PO BID LUZMARIA Stop: 05/20/17 08:59 Last Admin: 03/22/17 16:25 Dose: 10 mg Dextrose/Sodium Chloride (D5-0.9%Ns) 1,000 mls @ 100 mls/hr IV .Q10H LUZMARIA Stop: 05/19/17 22:14 Last Admin: 03/22/17 08:27 Dose: 100 mls/hr Ipratropium [place] (Atrovent Neb 0.5mg/2.5ml) 0.5 mg HHN Q6H PRN PRN Reason: Shortness of Breath Stop: 05/19/17 22:01 [place] Carbonate (Eskalith) 300 mg PO HS LUZMARIA PRN Reason: Protocol Stop: 05/20/17 20:59 Last Admin: 03/21/17 22:16 Dose: 300 mg Lorazepam (Ativan) 1 mg IVP Q4H PRN; Protocol PRN Reason: Anxiety/Agitation Stop: 05/19/17 22:01 Magnesium Hydroxide (Milk Of Magnesia) 30 ml PO HS PRN PRN Reason: Constipation Stop: 05/19/17 22:01 Miscellaneous (Clinical Monitoring) 1 ea MC DAILY PRN PRN Reason: RENAL Stop: 05/20/17 07:28 Ondansetron HCl (Zofran Odt) 4 mg PO Q6H PRN PRN Reason: Nausea / Vomiting Stop: 05/19/17 22:01 Thiamine HCl (Vitamin B1) 100 mg PO DAILY [facility] Stop: 05/21/17 08:59 Last Admin: 03/22/17 08:26 Dose: 100 mg Trazodone HCl (Desyrel) 50 mg PO HS [facility]MARIA PRN Reason: Protocol Stop: 05/20/17 20:59 Last Admin: 03/21/17 22:16 Dose: 50 mg Na up to 131 BUN/CR improving to 24/1.5 after insertion of Gray cath started to eat & on ivf encouraged increase po intake f/u electrolytes will need Gray cath until seen by urology Nutritional Asmnt/Malnutr-PDOC - Dietary Evaluation Malnutrition Findings (Please click <Entered> for more info): Nutritional Asmnt/Malnutrition Start: 03/25/17 15: 13 Text: Status: Complete Freq: Document 03/25/17 15:13 LULU (Rec: 03/25/17 15:30 [id number]) Nutritional Asmnt/Malnutrition Patient General Information Nutritional Screening Moderate Risk Screening Diagnosis Acute kidney injury, dehydration Pertinent Medical Hx/Surgical Hx Asthma, schizophrenia Subjective Information 51 year old male. Pt noted with poor PO intake since adm 03/20. Pt was sitting in a chair next to bed during visit , RN in room. Pt was very fixated on his urine output and gray catheter, pt either remained silent or expressed concern about his urine output , limited interview due to this and likely hx psychosis. Pt stated he does have appetite with taste bud present, however did not elaborate further regarding poor PO. Obtained CBW via bedscale with bed properly calibrated and then pt lying down. Current Diet Order/ Nutrition Support Regular Pertinent Medications Maalox, D5 0.9%, Folate, Haldol, MOM, Zofran, Vitamin B1 Pertinent Labs 03/23: Sodium 127L, BUN 46H, creaitnine 2.2H, glucose 107H 03/25: Sodium 130L (improving), BUN 32H (improving), creatinine 1.7H (improving) glucose 165H Nutritional Hx/Data Height 1.83 m Height (Calculated Centimeters) 182.9 Current Weight (lbs) 75.432 kg Weight (Calculated Kilograms) 75.4 Weight (Calculated Grams) 26047.4 [place] Body Weight 178 Weight Status Approriate GI Symptoms Food Allergies No Skin Integrity/Comment: Ryan 15. Skin intact. Current %PO Poor (25-49%) Estimated Nutritional Goals BEE in Kcals: Using Current wt Calories/Kcals/Kg CBW 75.4kg Kcals Calculated 1885-2262kcal (25-30kcal/kg) Protein: Using Current wt Protein Calculated 45g (0.6g/kg, monitor renal, improving) Fluid: ml 1885-2262ml (1ml/kcal) Nutritional Problem 1. Problem Problem Inadequate oral food beverage intake related to Etiology likely cognition aeb Signs/Symptoms: pt fixated on urine output and does not want to eat at this time Intervention/Recommendation Comments 1. Continue with regular diet. Continue to monitor sodium level and renal labs. Recommend low sodium diet if approrpaite. 2. Encourage PO intake, closely monitor. Pt appeared fixated on urine output and does not want to eat. Pt reported good appetite. RD explained importance of nutrition, pt nodded. 3. Monitor weight, prevent weight loss. Expected Outcomes/Goals Expected Outcomes/Goals 1. PO intake to meet at least 75% of estimated nutritional needs. Physician Parameters for PEM Serum Albumin (g/dl) 3.1 - 3.4 (Mild)
[2017-03-26] MEDS: Benztropine 1 MG TAB PO SCH (21:09)
[2017-03-27] MEDS: D5-0.9%NS 1,000 ML IV SCH ×2 (04:01→16:40)
--- NOTE | 2017-03-27 05:29 | Progress Notes ---
DATE: 03/26/2017 SUBJECTIVE: The patient is asleep. The patient is on IV fluids. The patient is on inpatient neb treatment. Per nursing staff, the patient was unable to void yesterday. Per nursing staff, the patient's family wants the patient transferred to [facility] due to the patient is unable to take care of himself at [facility] and [facility]. PHYSICAL EXAMINATION: VITAL SIGNS: Temperature 98.1, pulse 68, blood pressure 125/66, respiratory rate 19, and pulse ox 97% on room air. CARDIOVASCULAR: S1 and S2. RESPIRATORY: Clear. GASTROINTESTINAL: Soft. Positive bowel sounds. LABORATORY DATA: Hematology: WBC is 9.9, hemoglobin 9.7, hematocrit 27.2, platelet count 230,000, no left shift noted. Chemistry: Sodium 131, potassium 3.5, chloride 105, bicarb 22, and anion gap of 6.7, BUN 24, creatinine 0.5. GFR is more than 60, glucose 124, calcium 8.3, phosphorous 1.9, and mag is 2.6. AST is 135. ALT is 93. Alkaline phosphatase 40, total protein 5.6, albumin 2.6, and globulin 3.0. Microbiology: MRSA screen from 03/20/2017 is positive. ASSESSMENT: 1. MRSA colonization. 2. Anemia. 3. Hyponatremia. 4. Acute kidney injury (improved). 5. Hyperglycemia. 6. Hypercalcemia. 7. Hypophosphatemia. 8. Transaminitis (improved). 9. Hypoalbuminemia. 10. Protein-calorie malnutrition (severe). 11. Polysubstance dependence. 12. Paranoid schizophrenia. 13. Benign prostatic hyperplasia. 14. [place] of bladder. PLAN: Continue current medication and treatment. Obtain labs in a.m. We will correct electrolytes. post exchange manager will arrange for placement. Further recommendations per consultation. JOB# [id number] [facility]
[2017-03-27 07:26] LABS: % EOSINOPHILS 0.6 % (0.0-5.0); % LYMPHOCYTES 33.3 % (20.0-50.0); % MONOCYTES 12.4 % (2.0-10.0); % NEUTROPHILS 52.7 % (40.0-80.0); HEMOGLOBIN 10.5 gm/dL (13.2-17.3); MEAN CELL VOLUME 85.3 fl (80-99); MEAN CORPUSCULAR HEMOGLOBIN 28.6 pg (26.0-30.0); MEAN CORPUSCULAR HGB CONC 33.5 pg (28.0-36.0); MEAN PLATELET VOLUME 7.8 fl; NEUTROPHILE ABSOLUTE 6.7 Th/cmm (1.8-8.0); RED BLOOD COUNT 3.66 Mil/cmm (4.30-5.70); RED CELL DISTRIBUTION WIDTH 12.5 % (11.5-20.0)
[2017-03-27 07:55] LABS: BUN - UREA NITROGEN 19 mg/dL (7-25); BUN/CREATININE RATIO 13.6; CALCIUM SERUM 8.7 mg/dL (8.6-10.3); CARBON DIOXIDE 23.8 mEq/L (21.0-31.0); CHLORIDE 106 mEq/L (98-107); CREATININE - SERUM 1.4 mg/dL (0.7-1.3); GLUCOSE 118 mg/dL (70-105); POTASSIUM SERUM 3.8 mEq/L (3.5-5.1); SODIUM SERUM 137 mEq/L (136-145)
[2017-03-27 08:02] LABS: WHITE BLOOD COUNT 12.7 Th/cmm (4.8-10.8)
[2017-03-27 08:03] LABS: HEMATOCRIT 31.2 % (39.0-49.0); PLATELET COUNT 160 Th/cmm (150-400)
[2017-03-27] MEDS: Hydrocodone/APAP 10 mg/325 mg Tab PO PRN (15:10)
[2017-03-27 17:45] LABS: URINE BILIRUBIN NEGATIVE (NEGATIVE); URINE BLOOD MODERATE (NEGATIVE); URINE COLOR YELLOW; URINE GLUCOSE (UA) NEGATIVE (NEGATIVE); URINE KETONE NEGATIVE (NEGATIVE); URINE PH 5.5; URINE PROTEIN >300 mg/dL (NEGATIVE); URINE UROBILINOGEN 0.2 E.U./dL (0.2 - 1.0)
[2017-03-27 17:46] LABS: URINE AMORPHOUS SEDIMENT FEW URATES (NONE SEEN); URINE BACTERIA FEW /hpf (NONE SEEN); URINE EPITHELIAL CELLS FEW /lpf (FEW)
--- NOTE | 2017-03-27 18:01 | General Progress Note ---
Subjective - Review of Systems Service Date: 03/27/17 Subjective: sleeping, comfortable Objective - Results Result Diagrams: 03/27/17 06:18 03/27/17 06:18 Recent Labs: Laboratory Last Values WBC 12.7 Th/cmm (4.8-10.8) H D 03/27/17 06:18 RBC 3.66 Mil/cmm (4.30-5.70) L 03/27/17 06:18 Hgb 10.5 gm/dL (13.2-17.3) L 03/27/17 06:18 Hct 31.2 % (39.0-49.0) L D 03/27/17 06:18 MCV 85.3 fl (80-99) 03/27/17 06:18 MCH 28.6 pg (26.0-30.0) 03/27/17 06:18 MCHC Differential 33.5 pg (28.0-36.0) 03/27/17 06:18 RDW 12.5 % (11.5-20.0) 03/27/17 06:18 Plt Count 160 Th/cmm (150-400) D 03/27/17 06:18 MPV 7.8 fl 03/27/17 06:18 Neutrophils % 52.7 % (40.0-80.0) 03/27/17 06:18 Band Neutrophils % 1 % (0-10) 03/26/17 06:41 Lymphocytes % 33.3 % (20.0-50.0) 03/27/17 06:18 Monocytes % 12.4 % (2.0-10.0) H 03/27/17 06:18 Eosinophils % 0.6 % (0.0-5.0) 03/27/17 06:18 Basophils % 1.0 % (0.0-2.0) 03/27/17 06:18 Neutrophils (Manual) 60 % (40-80) 03/26/17 06:41 Lymphocytes 31 % (20-50) 03/26/17 06:41 Monocytes 6 % (2-10) 03/26/17 06:41 Eosinophils 2 % (0-5) 03/26/17 06:41 Platelet Estimate ADEQUATE (NORMAL) 03/26/17 06:41 Platelet Morphology NORMAL (NORMAL) 03/23/17 06:10 RBC Morph Micro Appear NORMAL (NORMAL) 03/23/17 06:10 Eos Smear Source URINE 03/22/17 00:30 Eos Smear Total Cells NONE SEEN (NONE SEEN) 03/22/17 00:30 Sodium 137 mEq/L (136-145) 03/27/17 06:18 Potassium 3.8 mEq/L (3.5-5.1) 03/27/17 06:18 Chloride 106 mEq/L (98-107) 03/27/17 06:18 Carbon Dioxide 23.8 mEq/L (21.0-31.0) 03/27/17 06:18 Anion Gap 11.0 (7.0-16.0) 03/27/17 06:18 BUN 19 mg/dL (7-25) 03/27/17 06:18 Creatinine 1.4 mg/dL (0.7-1.3) H 03/27/17 06:18 Est GFR ( Amer) > 60.0 ml/min (>90) 03/27/17 06:18 Est GFR (Non-Af Amer) 57.0 ml/min 03/27/17 06:18 BUN/Creatinine Ratio 13.6 03/27/17 06:18 Glucose 118 mg/dL (70-105) H 03/27/17 06:18 Plasma/Ser Osmolality 279 mOsmol/kg (275-295) 03/22/17 00:30 Uric Acid 10.1 mg/dL (4.4-7.6) H 03/22/17 06:00 Calcium 8.7 mg/dL (8.6-10.3) 03/27/17 06:18 Phosphorus 2.0 mg/dL (2.5-5.0) L 03/27/17 06:18 Magnesium 2.6 mg/dL (1.9-2.7) 03/26/17 06:41 Ferritin 5024 ng/mL (30-400) H 03/23/17 06:10 Total Bilirubin 0.4 mg/dL (0.3-1.0) 03/26/17 06:41 Direct Bilirubin 0.12 mg/dL (0.0-0.2) 03/24/17 05:00 AST 135 U/L (13-39) H 03/26/17 06:41 ALT 93 U/L (7-52) H 03/26/17 06:41 Alkaline Phosphatase 40 U/L (34-104) 03/26/17 06:41 Total Protein 5.6 gm/dL (6.0-8.3) L 03/26/17 06:41 Albumin 2.6 gm/dL (4.2-5.5) L 03/26/17 06:41 Globulin 3.0 gm/dL 03/26/17 06:41 Albumin/Globulin Ratio 0.9 (1.0-1.8) L 03/26/17 06:41 Ceruloplasmin 36.4 mg/dL (16.0-31.0) H 03/23/17 06:10 Urine Source GRAY [place] 03/27/17 17:00 Urine Color YELLOW 03/27/17 17:00 Urine Clarity SLIGHT HAZY (CLEAR) 03/27/17 17:00 Urine pH 5.5 03/27/17 17:00 Ur Specific [place] 1.015 (1.005-1.030) 03/27/17 17:00 Urine Protein >300 mg/dL (NEGATIVE) H 03/27/17 17:00 Urine Glucose (UA) NEGATIVE mg/dL (NEGATIVE) 03/27/17 17:00 Urine Ketones NEGATIVE mg/dL (NEGATIVE) 03/27/17 17:00 Urine Blood MODERATE (NEGATIVE) H 03/27/17 17:00 Urine Nitrate NEGATIVE (NEGATIVE) 03/27/17 17:00 Urine Bilirubin NEGATIVE (NEGATIVE) 03/27/17 17:00 Urine Urobilinogen 0.2 E.U./dL (0.2 - 1.0) 03/27/17 17:00 Ur Leukocyte Esterase NEGATIVE (NEGATIVE) 03/27/17 17:00 Urine RBC 5-10 /hpf (0-5) H 03/27/17 17:00 Urine WBC 2-5 /hpf (0-5) H 03/27/17 17:00 Ur Epithelial Cells FEW /lpf (FEW) 03/27/17 17:00 Amorphous Sediment FEW URATES (NONE SEEN) 03/27/17 17:00 Urine Bacteria FEW /hpf (NONE SEEN) 03/27/17 17:00 Urine Osmolality 305 mOsmol/kg 03/22/17 00:30 Ur Random Sodium 12 mmol/L 03/22/17 00:30 Urine Creatinine 86.1 mg/dl (Not Estab.) 03/22/17 00:30 Urine Microalbumin 1521.4 ug/mL (Not Estab.) 03/22/17 00:30 Microalb/Creat Ratio 1767.0 mg/g creat (0.0-30.0) H 03/22/17 00:30 Urine Opiates Screen NEGATIVE (NEGATIVE) 03/22/17 00:30 Urine Methadone Screen NEGATIVE (NEGATIVE) 03/22/17 00:30 Ur Barbiturates Screen NEGATIVE (NEGATIVE) 03/22/17 00:30 Ur Tricyclics Screen NEGATIVE (NEGATIVE) 03/22/17 00:30 Ur Phencyclidine Scrn NEGATIVE (NEGATIVE) 03/22/17 00:30 Amphetamines Screen NEGATIVE (NEGATIVE) 03/22/17 00:30 U Methamphetamines Scrn NEGATIVE (NEGATIVE) 03/22/17 00:30 U Benzodiazepines Scrn NEGATIVE (NEGATIVE) 03/22/17 00:30 [place] 0.91 MEQ/L (0.50-1.00) 03/21/17 04:32 U Cocaine Metab Screen NEGATIVE (NEGATIVE) 03/22/17 00:30 U Cannabinoids Screen POSITIVE (NEGATIVE) H 03/22/17 00:30 Hepatitis A IgM Ab Negative (Negative) 03/23/17 06:10 Hep Bs Antigen Negative (Negative) 03/23/17 06:10 Hep B Core IgM Ab Negative (Negative) 03/23/17 06:10 Hepatitis C Antibody <0.1 s/co ratio (0.0-0.9) 03/23/17 06:10 - Physical Exam Vitals and I&O: Vital Signs Temp 99.3 F 03/27/17 16:57 Pulse 95 03/27/17 16:57 Resp 20 03/27/17 16:57 BP 173/72 03/27/17 16:57 Pulse Ox 100 03/27/17 16:57 Intake & Output 03/26/17 03/27/17 03/27/17 18:59 06:59 18:59 Intake Total 0766 182 3580 Output Total 950 900 Balance 290 -420 1000 Intake: Intake, IV Amount 1000 1000 D5-0.9%Ns 1,000 ml @ 100 1000 1000 mls/hr IV .Q10H LUZMARIA Rx#: [id number] Oral 240 480 Output: Urine 950 900 Stool 0 Active Medications: Current Medications Acetaminophen (Tylenol) 650 mg PO Q6H PRN PRN Reason: Mild Pain/Headache/T above 101 Stop: 05/19/17 22:01 Last Admin: 03/27/17 03:56 Dose: 650 mg Acetaminophen/Hydrocodone Bitart ([place] 10 Mg/325 Mg) 1 tab PO Q6H PRN PRN Reason: Severe Pain Stop: 05/19/17 22:01 Last Admin: 03/27/17 15:10 Dose: 1 tab Acetaminophen/Hydrocodone Bitart ([place] 5mg/325mg) 1 tab PO Q6H PRN PRN Reason: Moderate Pain Stop: 05/19/17 22:01 Last Admin: 03/26/17 10:01 Dose: 1 tab Al Hydrox/Mg Hydrox/Simethicone (Maalox) 30 ml PO Q6H PRN PRN Reason: GI UPSET Stop: 05/19/17 22:01 Albuterol Sulfate (Albuterol 2.5mg/3ml Neb Ud) 2.5 mg HHN Q6H PRN PRN Reason: Shortness of Breath Stop: 05/19/17 22:01 Benztropine Mesylate (Cogentin) 2 mg PO HS LUZMARIA Stop: 05/20/17 20:59 Last Admin: 03/26/17 21:09 Dose: 2 mg Folic Acid (Folate) 1 mg PO DAILY LUZMARIA Stop: 05/21/17 08:59 Last Admin: 03/27/17 08:44 Dose: 1 mg Gabapentin (Neurontin) 300 mg PO TID LUZMARIA Stop: 05/20/17 13:59 Last Admin: 03/27/17 14:00 Dose: 300 mg Haloperidol (Haldol) 10 mg PO BID LUZMARIA Stop: 05/20/17 08:59 Last Admin: 03/27/17 16:38 Dose: 10 mg Dextrose/Sodium Chloride (D5-0.9%Ns) 1,000 mls @ 100 mls/hr IV .Q10H LUZMARIA Stop: 05/19/17 22:14 Last Admin: 03/27/17 16:40 Dose: 100 mls/hr Cefepime HCl 1 gm/ Sodium (Chloride) 50 mls @ 100 mls/hr IV Q12HR LUZMARIA Stop: 05/26/17 20:59 Ipratropium [place] (Atrovent Neb 0.5mg/2.5ml) 0.5 mg HHN Q6H PRN PRN Reason: Shortness of Breath Stop: 05/19/17 22:01 [place] Carbonate (Eskalith) 300 mg PO HS LUZMARIA PRN Reason: Protocol Stop: 05/20/17 20:59 Last Admin: 03/26/17 21:13 Dose: 300 mg Lorazepam (Ativan) 1 mg IVP Q4H PRN; Protocol PRN Reason: Anxiety/Agitation Stop: 05/19/17 22:01 Last Admin: 03/27/17 13:07 Dose: 1 mg Magnesium Hydroxide (Milk Of Magnesia) 30 ml PO HS PRN PRN Reason: Constipation Stop: 05/19/17 22:01 Last Admin: 03/25/17 22:54 Dose: 30 ml Miscellaneous (Clinical Monitoring) 1 ea MC DAILY PRN PRN Reason: RENAL Stop: 05/20/17 07:28 Ondansetron HCl (Zofran Odt) 4 mg PO Q6H PRN PRN Reason: Nausea / Vomiting Stop: 05/19/17 22:01 Thiamine HCl (Vitamin B1) 100 mg PO DAILY LUZMARIA Stop: 05/21/17 08:59 Last Admin: 03/27/17 08:44 Dose: 100 mg Trazodone HCl (Desyrel) 50 mg PO HS LUZMARIA PRN Reason: Protocol Stop: 05/20/17 20:59 Last Admin: 03/26/17 21:09 Dose: 50 mg General: Mild distress HEENT: Atraumatic, Mucous membr. moist/pink Neck: Supple, +2 carotid pulse wo bruit Cardiovascular: Regular rate, Normal S1, Normal S2 Lungs: Clear to auscultation Abdomen: Bowel sounds, Soft Extremities: no Edema Neurological: Sensation intact Skin: no Rash Assessment/Plan - Assessment Assessment: ERICA on CKD Hyponatremia 2nd to Na loss watery diarrhea possible acute gastroenteritis, C. Diff Gen. 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, illegal drugs) outlet obstruction 2/2 BPH - Plan Plan: Lab - Result Diagrams 03/22/17 06:00 03/22/17 06:00 Current Medications Acetaminophen (Tylenol) 650 mg PO Q6H PRN PRN Reason: Mild Pain/Headache/T above 101 Stop: 05/19/17 22:01 Last Admin: 03/21/17 22:17 Dose: 650 mg Acetaminophen/Hydrocodone Bitart ([place] 10 Mg/325 Mg) 1 tab PO Q6H PRN PRN Reason: Severe Pain Stop: 05/19/17 22:01 Last Admin: 03/21/17 18:37 Dose: 1 tab Acetaminophen/Hydrocodone Bitart ([place] 5mg/325mg) 1 tab PO Q6H PRN PRN Reason: Moderate Pain Stop: 05/19/17 22:01 Al Hydrox/Mg Hydrox/Simethicone (Maalox) 30 ml PO Q6H PRN PRN Reason: Constipation Stop: 05/19/17 22:01 Albuterol Sulfate (Albuterol 2.5mg/3ml Neb Ud) 2.5 mg HHN Q6H PRN PRN Reason: Shortness of Breath Stop: 05/19/17 22:01 Benztropine Mesylate (Cogentin) 2 mg PO HS LUZMARIA Stop: 05/20/17 20:59 Last Admin: 03/21/17 22:16 Dose: 2 mg Folic Acid (Folate) 1 mg PO DAILY LUZMARIA Stop: 05/21/17 08:59 Last Admin: 03/22/17 08:26 Dose: 1 mg Gabapentin (Neurontin) 300 mg PO TID LUZMARIA Stop: 05/20/17 13:59 Last Admin: 03/22/17 08:26 Dose: 300 mg Haloperidol (Haldol) 10 mg PO BID LUZMARIA Stop: 05/20/17 08:59 Last Admin: 03/22/17 16:25 Dose: 10 mg Dextrose/Sodium Chloride (D5-0.9%Ns) 1,000 mls @ 100 mls/hr IV .Q10H LUZMARIA Stop: 05/19/17 22:14 Last Admin: 03/22/17 08:27 Dose: 100 mls/hr Ipratropium [place] (Atrovent Neb 0.5mg/2.5ml) 0.5 mg HHN Q6H PRN PRN Reason: Shortness of Breath Stop: 05/19/17 22:01 [place] Carbonate (Eskalith) 300 mg PO HS LUZMARIA PRN Reason: Protocol Stop: 05/20/17 20:59 Last Admin: 03/21/17 22:16 Dose: 300 mg Lorazepam (Ativan) 1 mg IVP Q4H PRN; Protocol PRN Reason: Anxiety/Agitation Stop: 05/19/17 22:01 Magnesium Hydroxide (Milk Of Magnesia) 30 ml PO HS PRN PRN Reason: Constipation Stop: 05/19/17 22:01 Miscellaneous (Clinical Monitoring) 1 ea MC DAILY PRN PRN Reason: RENAL Stop: 05/20/17 07:28 Ondansetron HCl (Zofran Odt) 4 mg PO Q6H PRN PRN Reason: Nausea / Vomiting Stop: 05/19/17 22:01 Thiamine HCl (Vitamin B1) 100 mg PO DAILY LUZMARIA Stop: 05/21/17 08:59 Last Admin: 03/22/17 08:26 Dose: 100 mg Trazodone HCl (Desyrel) 50 mg PO HS LUZMARIA PRN Reason: Protocol Stop: 05/20/17 20:59 Last Admin: 03/21/17 22:16 Dose: 50 mg Na up to 137 BUN/CR improved to 19/1.4 started to eat &continue ivf encouraged increase po intake f/u electrolytes will need Gray cath until seen by urology Nutritional Asmnt/Malnutr-PDOC - Dietary Evaluation Malnutrition Findings (Please click <Entered> for more info): Nutritional Asmnt/Malnutrition Start: 03/25/17 15: 13 Text: Status: Complete Freq: Document 03/25/17 15:13 GSUN (Rec: 03/25/17 15:30 GSUN [id number]) Nutritional Asmnt/Malnutrition Patient General Information Nutritional Screening Moderate Risk Screening Diagnosis Acute kidney injury, dehydration Pertinent Medical Hx/Surgical Hx Asthma, schizophrenia Subjective Information 51 year old male. Pt noted with poor PO intake since adm 03/20. Pt was sitting in a chair next to bed during visit , RN in room. Pt was very fixated on his urine output and gray catheter, pt either remained silent or expressed concern about his urine output , limited interview due to this and likely hx psychosis. Pt stated he does have appetite with taste bud present, however did not elaborate further regarding poor PO. Obtained CBW via bedscale with bed properly calibrated and then pt lying down. Current Diet Order/ Nutrition Support Regular Pertinent Medications Maalox, D5 0.9%, Folate, Haldol, MOM, Zofran, Vitamin B1 Pertinent Labs 03/23: Sodium 127L, BUN 46H, creaitnine 2.2H, glucose 107H 03/25: Sodium 130L (improving), BUN 32H (improving), creatinine 1.7H (improving) glucose 165H Nutritional Hx/Data Height 1.83 m Height (Calculated Centimeters) 182.9 Current Weight (lbs) 75.432 kg Weight (Calculated Kilograms) 75.4 Weight (Calculated Grams) 83680.4 [place] Body Weight 178 Weight Status Approriate GI Symptoms Food Allergies No Skin Integrity/Comment: Ryan 15. Skin intact. Current %PO Poor (25-49%) Estimated Nutritional Goals BEE in Kcals: Using Current wt Calories/Kcals/Kg CBW 75.4kg Kcals Calculated 1885-2262kcal (25-30kcal/kg) Protein: Using Current wt Protein Calculated 45g (0.6g/kg, monitor renal, improving) Fluid: ml 1885-2262ml (1ml/kcal) Nutritional Problem 1. Problem Problem Inadequate oral food beverage intake related to Etiology likely cognition aeb Signs/Symptoms: pt fixated on urine output and does not want to eat at this time Intervention/Recommendation Comments 1. Continue with regular diet. Continue to monitor sodium level and renal labs. Recommend low sodium diet if approrpaite. 2. Encourage PO intake, closely monitor. Pt appeared fixated on urine output and does not want to eat. Pt reported good appetite. RD explained importance of nutrition, pt nodded. 3. Monitor weight, prevent weight loss. Expected Outcomes/Goals Expected Outcomes/Goals 1. PO intake to meet at least 75% of estimated nutritional needs. Physician Parameters for PEM Serum Albumin (g/dl) 3.1 - 3.4 (Mild)
[2017-03-27] MEDS: Cefepime 1 GM in Sodium Chloride 0.9% 50 ML IV SCH (20:50)
[2017-03-27] MEDS: Benztropine 1 MG TAB PO SCH (20:50)
[2017-03-28] MEDS: Hydrocodone/APAP 10 mg/325 mg Tab PO PRN ×2 (02:26→19:50)
[2017-03-28] MEDS: D5-0.9%NS 1,000 ML IV SCH (02:26)
[2017-03-28 07:21] LABS: HEMOGLOBIN 8.6 gm/dL (13.2-17.3); MEAN CELL VOLUME 86.8 fl (80-99); MEAN CORPUSCULAR HEMOGLOBIN 31.1 pg (26.0-30.0); MEAN CORPUSCULAR HGB CONC 35.8 pg (28.0-36.0); MEAN PLATELET VOLUME 7.5 fl; RED BLOOD COUNT 2.75 Mil/cmm (4.30-5.70); RED CELL DISTRIBUTION WIDTH 12.7 % (11.5-20.0); WHITE BLOOD COUNT 11.5 Th/cmm (4.8-10.8)
[2017-03-28 08:02] LABS: ALB/GLOB RATIO 0.8 (1.0-1.8); ALKALINE PHOSPHATASE 44 U/L (34-104); ANION GAP 8.7 (7.0-16.0); BILIRUBIN,TOTAL 0.4 mg/dL (0.3-1.0); BUN - UREA NITROGEN 20 mg/dL (7-25); BUN/CREATININE RATIO 14.3; CALCIUM SERUM 8.1 mg/dL (8.6-10.3); CHLORIDE 113 mEq/L (98-107); CREATININE - SERUM 1.4 mg/dL (0.7-1.3); GLUCOSE 141 mg/dL (70-105); POTASSIUM SERUM 3.7 mEq/L (3.5-5.1); SGOT 105 U/L (13-39); SGPT/ALT 70 U/L (7-52); SODIUM SERUM 140 mEq/L (136-145)
[2017-03-28 08:22] LABS: HEMATOCRIT 24.8 % (39.0-49.0); PLATELET COUNT 207 Th/cmm (150-400)
[2017-03-28 08:57] LABS: BAND NEUTROPHILE 4 % (0-10); NEUTROPHILS 68 % (40-80); TOTAL CELLS COUNTED 100
[2017-03-28 08:58] LABS: ANISOCYTOSIS 1+; PLATELET ESTIMATE ADEQUATE (NORMAL); PLATELET MORPHOLOGY PLATELET CLUMPS SEEN (NORMAL)
[2017-03-28] MEDS: Cefepime 1 GM in Sodium Chloride 0.9% 50 ML IV SCH ×2 (09:03→22:06)
--- NOTE | 2017-03-28 09:35 | Progress Notes ---
DATE: 03/27/2017 SUBJECTIVE: The patient is awake. The patient appears uncomfortable and in pain. OBJECTIVE: VITAL SIGNS: Temperature 98.3, pulse of 87, respiratory rate 14, and O2 sat 98% on room air. CARDIOVASCULAR: S1 and S2. RESPIRATORY: Clear. GASTROINTESTINAL: Soft. Positive bowel sounds. LABORATORY DATA: Hematology: WBC is 12.7, hemoglobin 10.5, hematocrit per labs , platelet count of 160, 12% monocytes. Chemistry: Sodium 137, potassium 3.8, chloride 107, bicarb 23, anion gap 11, BUN 19, creatinine 1.4, GFR is more than 60, glucose 118, calcium 8.7, and phosphorus for 2.0. MICROBIOLOGY: No new microbiology results. RADIOLOGY: No new radiology results. ASSESSMENT: 1. Leukocytosis. 2. Anemia. 3. Acute kidney injury (improved). 4. Hyperglycemia. 5. Hypophosphatemia. 6. MRSA colonization. 7. Polysubstance dependence. 8. Paranoid schizophrenia. 9. Benign prostatic hyperplasia. 10. [place] of bladder. PLAN: Continue with current medication and treatment. Obtain labs in a.m. We will obtain davila cultures. We will correct electrolyte deficiency. We will have reevaluation by Psychiatry. We will obtain Infectious Disease consultation. manager wound care will arrange for SNF placement. JOB# [id number] [id number]
[2017-03-28] MEDS ORDERED: Hydrocodone/APAP 10 mg/325 mg Tab PO PRN (13:50)
--- NOTE | 2017-03-28 13:54 | General Progress Note ---
Subjective - Review of Systems Service Date: 03/28/17 Subjective: lying in bed Objective - Results Result Diagrams: 03/28/17 06:55 03/28/17 06:55 Recent Labs: Laboratory Last Values WBC 11.5 Th/cmm (4.8-10.8) H 03/28/17 06:55 RBC 2.75 Mil/cmm (4.30-5.70) L 03/28/17 06:55 Hgb 8.6 gm/dL (13.2-17.3) L 03/28/17 06:55 Hct 24.8 % (39.0-49.0) L 03/28/17 06:55 MCV 86.8 fl (80-99) 03/28/17 06:55 MCH 31.1 pg (26.0-30.0) H 03/28/17 06:55 MCHC Differential 35.8 pg (28.0-36.0) 03/28/17 06:55 RDW 12.7 % (11.5-20.0) 03/28/17 06:55 Plt Count 207 Th/cmm (150-400) D 03/28/17 06:55 MPV 7.5 fl 03/28/17 06:55 Neutrophils % 52.7 % (40.0-80.0) 03/27/17 06:18 Band Neutrophils % 4 % (0-10) 03/28/17 06:55 Lymphocytes % 33.3 % (20.0-50.0) 03/27/17 06:18 Monocytes % 12.4 % (2.0-10.0) H 03/27/17 06:18 Eosinophils % 0.6 % (0.0-5.0) 03/27/17 06:18 Basophils % 1.0 % (0.0-2.0) 03/27/17 06:18 Neutrophils (Manual) 68 % (40-80) 03/28/17 06:55 Lymphocytes 17 % (20-50) L 03/28/17 06:55 Monocytes 8 % (2-10) 03/28/17 06:55 Eosinophils 2 % (0-5) 03/26/17 06:41 Atypical Lymphocytes 3 % 03/28/17 06:55 Platelet Estimate ADEQUATE (NORMAL) 03/28/17 06:55 Platelet Morphology PLATELET CLUMPS SEEN (NORMAL) 03/28/17 06:55 Anisocytosis 1+ 03/28/17 06:55 RBC Morph Micro Appear ABNORMAL (NORMAL) 03/28/17 06:55 ESR 110 mm/hr (0-20) H 03/28/17 06:55 Eos Smear Source URINE 03/22/17 00:30 Eos Smear Total Cells NONE SEEN (NONE SEEN) 03/22/17 00:30 Sodium 140 mEq/L (136-145) 03/28/17 06:55 Potassium 3.7 mEq/L (3.5-5.1) 03/28/17 06:55 Chloride 113 mEq/L (98-107) H 03/28/17 06:55 Carbon Dioxide 22.0 mEq/L (21.0-31.0) 03/28/17 06:55 Anion Gap 8.7 (7.0-16.0) 03/28/17 06:55 BUN 20 mg/dL (7-25) 03/28/17 06:55 Creatinine 1.4 mg/dL (0.7-1.3) H 03/28/17 06:55 Est GFR ( Amer) > 60.0 ml/min (>90) 03/28/17 06:55 Est GFR (Non-Af Amer) 57.0 ml/min 03/28/17 06:55 BUN/Creatinine Ratio 14.3 03/28/17 06:55 Glucose 141 mg/dL (70-105) H 03/28/17 06:55 Plasma/Ser Osmolality 279 mOsmol/kg (275-295) 03/22/17 00:30 Uric Acid 10.1 mg/dL (4.4-7.6) H 03/22/17 06:00 Calcium 8.1 mg/dL (8.6-10.3) L 03/28/17 06:55 Phosphorus 2.0 mg/dL (2.5-5.0) L 03/27/17 06:18 Magnesium 2.6 mg/dL (1.9-2.7) 03/26/17 06:41 Ferritin 5024 ng/mL (30-400) H 03/23/17 06:10 Total Bilirubin 0.4 mg/dL (0.3-1.0) 03/28/17 06:55 Direct Bilirubin 0.12 mg/dL (0.0-0.2) 03/24/17 05:00 AST 105 U/L (13-39) H 03/28/17 06:55 ALT 70 U/L (7-52) H 03/28/17 06:55 Alkaline Phosphatase 44 U/L (34-104) 03/28/17 06:55 Total Protein 5.6 gm/dL (6.0-8.3) L 03/28/17 06:55 Albumin 2.4 gm/dL (4.2-5.5) L 03/28/17 06:55 Globulin 3.2 gm/dL 03/28/17 06:55 Albumin/Globulin Ratio 0.8 (1.0-1.8) L 03/28/17 06:55 Ceruloplasmin 36.4 mg/dL (16.0-31.0) H 03/23/17 06:10 Urine Source GRAY PORT 03/27/17 17:00 Urine Color YELLOW 03/27/17 17:00 Urine Clarity SLIGHT HAZY (CLEAR) 03/27/17 17:00 Urine pH 5.5 03/27/17 17:00 Ur Specific [place] 1.015 (1.005-1.030) 03/27/17 17:00 Urine Protein >300 mg/dL (NEGATIVE) H 03/27/17 17:00 Urine Glucose (UA) NEGATIVE mg/dL (NEGATIVE) 03/27/17 17:00 Urine Ketones NEGATIVE mg/dL (NEGATIVE) 03/27/17 17:00 Urine Blood MODERATE (NEGATIVE) H 03/27/17 17:00 Urine Nitrate NEGATIVE (NEGATIVE) 03/27/17 17:00 Urine Bilirubin NEGATIVE (NEGATIVE) 03/27/17 17:00 Urine Urobilinogen 0.2 E.U./dL (0.2 - 1.0) 03/27/17 17:00 Ur Leukocyte Esterase NEGATIVE (NEGATIVE) 03/27/17 17:00 Urine RBC 5-10 /hpf (0-5) H 03/27/17 17:00 Urine WBC 2-5 /hpf (0-5) H 03/27/17 17:00 Ur Epithelial Cells FEW /lpf (FEW) 03/27/17 17:00 Amorphous Sediment FEW URATES (NONE SEEN) 03/27/17 17:00 Urine Bacteria FEW /hpf (NONE SEEN) 03/27/17 17:00 Urine Osmolality 305 mOsmol/kg 03/22/17 00:30 Ur Random Sodium 12 mmol/L 03/22/17 00:30 Urine Creatinine 86.1 mg/dl (Not Estab.) 03/22/17 00:30 Urine Microalbumin 1521.4 ug/mL (Not Estab.) 03/22/17 00:30 Microalb/Creat Ratio 1767.0 mg/g creat (0.0-30.0) H 03/22/17 00:30 Urine Opiates Screen NEGATIVE (NEGATIVE) 03/22/17 00:30 Urine Methadone Screen NEGATIVE (NEGATIVE) 03/22/17 00:30 Ur Barbiturates Screen NEGATIVE (NEGATIVE) 03/22/17 00:30 Ur Tricyclics Screen NEGATIVE (NEGATIVE) 03/22/17 00:30 Ur Phencyclidine Scrn NEGATIVE (NEGATIVE) 03/22/17 00:30 Amphetamines Screen NEGATIVE (NEGATIVE) 03/22/17 00:30 U Methamphetamines Scrn NEGATIVE (NEGATIVE) 03/22/17 00:30 U Benzodiazepines Scrn NEGATIVE (NEGATIVE) 03/22/17 00:30 [place] 0.91 MEQ/L (0.50-1.00) 03/21/17 04:32 U Cocaine Metab Screen NEGATIVE (NEGATIVE) 03/22/17 00:30 U Cannabinoids Screen POSITIVE (NEGATIVE) H 03/22/17 00:30 Hepatitis A IgM Ab Negative (Negative) 03/23/17 06:10 Hep Bs Antigen Negative (Negative) 03/23/17 06:10 Hep B Core IgM Ab Negative (Negative) 03/23/17 06:10 Hepatitis C Antibody <0.1 s/co ratio (0.0-0.9) 03/23/17 06:10 - Physical Exam Vitals and I&O: Vital Signs Temp 99 F 03/28/17 08:00 Pulse 99 03/28/17 09:45 Resp 17 03/28/17 09:45 BP 142/76 03/28/17 08:00 Pulse Ox 96 03/28/17 09:45 Intake & Output 03/27/17 03/28/17 03/28/17 18:59 06:59 18:59 Intake Total 1000 1026.667 120 Balance 1000 1026.667 120 Intake: Intake, IV Amount 1000 1026.667 Cefepime 1 gm In Sodium 50 Chloride 0.9% 50 ml @ 100 mls/hr IV Q12HR [facility] Rx#: [id number] D5-0.9%Ns 1,000 ml @ 100 1000 976.667 mls/hr IV .Q10H [facility] Rx#: [id number] Oral 120 Active Medications: Current Medications Acetaminophen (Tylenol) 650 mg PO Q6H PRN PRN Reason: Mild Pain/Headache/T above 101 Stop: 05/19/17 22:01 Last Admin: 03/28/17 12:09 Dose: 650 mg Acetaminophen/Hydrocodone Bitart ([place] 10 Mg/325 Mg) 1 tab PO Q6H PRN PRN Reason: Pain (Severe) Stop: 05/27/17 13:49 Al Hydrox/Mg Hydrox/Simethicone (Maalox) 30 ml PO Q6H PRN PRN Reason: GI UPSET Stop: 05/19/17 22:01 Albuterol Sulfate (Albuterol 2.5mg/3ml Neb Ud) 2.5 mg HHN Q6H PRN PRN Reason: Shortness of Breath Stop: 05/19/17 22:01 Benztropine Mesylate (Cogentin) 2 mg PO HS [facility] Stop: 05/20/17 20:59 Last Admin: 03/27/17 20:50 Dose: 2 mg Folic Acid (Folate) 1 mg PO DAILY [facility] Stop: 05/21/17 08:59 Last Admin: 03/28/17 08:40 Dose: 1 mg Gabapentin (Neurontin) 300 mg PO TID [facility] Stop: 05/20/17 13:59 Last Admin: 03/28/17 08:40 Dose: 300 mg Haloperidol (Haldol) 10 mg PO BID [facility] Stop: 05/20/17 08:59 Last Admin: 03/28/17 08:40 Dose: 10 mg Dextrose/Sodium Chloride (D5-0.9%Ns) 1,000 mls @ 100 mls/hr IV .Q10H [facility] Stop: 05/19/17 22:14 Last Admin: 03/28/17 02:26 Dose: 100 mls/hr Cefepime HCl 1 gm/ Sodium (Chloride) 50 mls @ 100 mls/hr IV Q12HR [facility] Stop: 05/26/17 20:59 Last Admin: 03/28/17 09:03 Dose: 100 mls/hr Ipratropium [place] (Atrovent Neb 0.5mg/2.5ml) 0.5 mg HHN Q6H PRN PRN Reason: Shortness of Breath Stop: 05/19/17 22:01 [place] Carbonate (Eskalith) 300 mg PO HS [facility] PRN Reason: Protocol Stop: 05/20/17 20:59 Last Admin: 03/27/17 20:49 Dose: 300 mg Magnesium Hydroxide (Milk Of Magnesia) 30 ml PO HS PRN PRN Reason: Constipation Stop: 05/19/17 22:01 Last Admin: 03/25/17 22:54 Dose: 30 ml Miscellaneous (Clinical Monitoring) 1 ea MC DAILY PRN PRN Reason: RENAL Stop: 05/20/17 07:28 Ondansetron HCl (Zofran Odt) 4 mg PO Q6H PRN PRN Reason: Nausea / Vomiting Stop: 05/19/17 22:01 Thiamine HCl (Vitamin B1) 100 mg PO DAILY [facility] Stop: 05/21/17 08:59 Last Admin: 03/28/17 08:39 Dose: 100 mg Trazodone HCl (Desyrel) 50 mg PO HS [facility] PRN Reason: Protocol Stop: 05/20/17 20:59 Last Admin: 03/27/17 20:50 Dose: 50 mg General: Alert, Mild distress HEENT: Atraumatic, Mucous membr. moist/pink Neck: Supple, +2 carotid pulse wo bruit Cardiovascular: Regular rate, Normal S1, Normal S2 Lungs: Clear to auscultation Abdomen: Bowel sounds, Soft Extremities: no Edema Neurological: Sensation intact Skin: no Rash Assessment/Plan - Assessment Assessment: ERICA on CKD Hyponatremia 2nd to Na loss watery diarrhea possible acute gastroenteritis, C. Diff Gen. 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, illegal drugs) outlet obstruction 2/2 BPH - Plan Plan: Lab - Result Diagrams 03/22/17 06:00 03/22/17 06:00 Current Medications Acetaminophen (Tylenol) 650 mg PO Q6H PRN PRN Reason: Mild Pain/Headache/T above 101 Stop: 05/19/17 22:01 Last Admin: 03/21/17 22:17 Dose: 650 mg Acetaminophen/Hydrocodone Bitart ([place] 10 Mg/325 Mg) 1 tab PO Q6H PRN PRN Reason: Severe Pain Stop: 05/19/17 22:01 Last Admin: 03/21/17 18:37 Dose: 1 tab Acetaminophen/Hydrocodone Bitart ([place] 5mg/325mg) 1 tab PO Q6H PRN PRN Reason: Moderate Pain Stop: 05/19/17 22:01 Al Hydrox/Mg Hydrox/Simethicone (Maalox) 30 ml PO Q6H PRN PRN Reason: Constipation Stop: 05/19/17 22:01 Albuterol Sulfate (Albuterol 2.5mg/3ml Neb Ud) 2.5 mg HHN Q6H PRN PRN Reason: Shortness of Breath Stop: 05/19/17 22:01 Benztropine Mesylate (Cogentin) 2 mg PO HS [facility] Stop: 05/20/17 20:59 Last Admin: 03/21/17 22:16 Dose: 2 mg Folic Acid (Folate) 1 mg PO DAILY [facility] Stop: 05/21/17 08:59 Last Admin: 03/22/17 08:26 Dose: 1 mg Gabapentin (Neurontin) 300 mg PO TID [facility] Stop: 05/20/17 13:59 Last Admin: 03/22/17 08:26 Dose: 300 mg Haloperidol (Haldol) 10 mg PO BID [facility] Stop: 05/20/17 08:59 Last Admin: 03/22/17 16:25 Dose: 10 mg Dextrose/Sodium Chloride (D5-0.9%Ns) 1,000 mls @ 100 mls/hr IV .Q10H [facility] Stop: 05/19/17 22:14 Last Admin: 03/22/17 08:27 Dose: 100 mls/hr Ipratropium [place] (Atrovent Neb 0.5mg/2.5ml) 0.5 mg HHN Q6H PRN PRN Reason: Shortness of Breath Stop: 05/19/17 22:01 [place] Carbonate (Eskalith) 300 mg PO HS [facility] PRN Reason: Protocol Stop: 05/20/17 20:59 Last Admin: 03/21/17 22:16 Dose: 300 mg Lorazepam (Ativan) 1 mg IVP Q4H PRN; Protocol PRN Reason: Anxiety/Agitation Stop: 05/19/17 22:01 Magnesium Hydroxide (Milk Of Magnesia) 30 ml PO HS PRN PRN Reason: Constipation Stop: 05/19/17 22:01 Miscellaneous (Clinical Monitoring) 1 ea MC DAILY PRN PRN Reason: RENAL Stop: 05/20/17 07:28 Ondansetron HCl (Zofran Odt) 4 mg PO Q6H PRN PRN Reason: Nausea / Vomiting Stop: 05/19/17 22:01 Thiamine HCl (Vitamin B1) 100 mg PO DAILY [facility] Stop: 05/21/17 08:59 Last Admin: 03/22/17 08:26 Dose: 100 mg Trazodone HCl (Desyrel) 50 mg PO HS [facility] PRN Reason: Protocol Stop: 05/20/17 20:59 Last Admin: 03/21/17 22:16 Dose: 50 mg Na up to 140 BUN/CR improved to 20/1.4 started to eat & continue ivf encouraged increase po intake f/u electrolytes will need Gray cath until seen by urology Nutritional Asmnt/Malnutr-PDOC - Dietary Evaluation Malnutrition Findings (Please click <Entered> for more info): Nutritional Asmnt/Malnutrition Start: 03/25/17 15: 13 Text: Status: Complete Freq: Document 03/25/17 15:13 GSUN (Rec: 03/25/17 15:30 [email or web address]) Nutritional Asmnt/Malnutrition Patient General Information Nutritional Screening Moderate Risk Screening Diagnosis Acute kidney injury, dehydration Pertinent Medical Hx/Surgical Hx Asthma, schizophrenia Subjective Information 51 year old male. Pt noted with poor PO intake since adm 03/20. Pt was sitting in a chair next to bed during visit , RN in room. Pt was very fixated on his urine output and gray catheter, pt either remained silent or expressed concern about his urine output , limited interview due to this and likely hx psychosis. Pt stated he does have appetite with taste bud present, however did not elaborate further regarding poor PO. Obtained CBW via bedscale with bed properly calibrated and then pt lying down. Current Diet Order/ Nutrition Support Regular Pertinent Medications Maalox, D5 0.9%, Folate, Haldol, MOM, Zofran, Vitamin B1 Pertinent Labs 03/23: Sodium 127L, BUN 46H, creaitnine 2.2H, glucose 107H 03/25: Sodium 130L (improving), BUN 32H (improving), creatinine 1.7H (improving) glucose 165H Nutritional Hx/Data Height 1.83 m Height (Calculated Centimeters) 182.9 Current Weight (lbs) 75.432 kg Weight (Calculated Kilograms) 75.4 Weight (Calculated Grams) 38346.4 [place] Body Weight 178 Weight Status Approriate GI Symptoms Food Allergies No Skin Integrity/Comment: Ryan 15. Skin intact. Current %PO Poor (25-49%) Estimated Nutritional Goals BEE in Kcals: Using Current wt Calories/Kcals/Kg CBW 75.4kg Kcals Calculated 1885-2262kcal (25-30kcal/kg) Protein: Using Current wt Protein Calculated 45g (0.6g/kg, monitor renal, improving) Fluid: ml 1885-2262ml (1ml/kcal) Nutritional Problem 1. Problem Problem Inadequate oral food beverage intake related to Etiology likely cognition aeb Signs/Symptoms: pt fixated on urine output and does not want to eat at this time Intervention/Recommendation Comments 1. Continue with regular diet. Continue to monitor sodium level and renal labs. Recommend low sodium diet if approrpaite. 2. Encourage PO intake, closely monitor. Pt appeared fixated on urine output and does not want to eat. Pt reported good appetite. RD explained importance of nutrition, pt nodded. 3. Monitor weight, prevent weight loss. Expected Outcomes/Goals Expected Outcomes/Goals 1. PO intake to meet at least 75% of estimated nutritional needs. Physician Parameters for PEM Serum Albumin (g/dl) 3.1 - 3.4 (Mild)
[2017-03-28] MEDS ORDERED: Hydrocodone/APAP 5mg/325mg Tab PO PRN (17:49)
--- NOTE | 2017-03-28 17:54 | Infectious Disease Prog Note ---
Infectious Disease Subjective - Review of Systems Service Date: 03/28/17 Subjective: cc uti urine cx colonies young ros no fever o/e vss confused pale no icterus abd sft ext npulse equal dx uti maxipime Infectious Disease Objective - Results Result Diagrams: 03/28/17 06:55 03/28/17 06:55 Recent Labs: Laboratory Last Values WBC 11.5 Th/cmm (4.8-10.8) H 03/28/17 06:55 RBC 2.75 Mil/cmm (4.30-5.70) L 03/28/17 06:55 Hgb 8.6 gm/dL (13.2-17.3) L 03/28/17 06:55 Hct 24.8 % (39.0-49.0) L 03/28/17 06:55 MCV 86.8 fl (80-99) 03/28/17 06:55 MCH 31.1 pg (26.0-30.0) H 03/28/17 06:55 MCHC Differential 35.8 pg (28.0-36.0) 03/28/17 06:55 RDW 12.7 % (11.5-20.0) 03/28/17 06:55 Plt Count 207 Th/cmm (150-400) D 03/28/17 06:55 MPV 7.5 fl 03/28/17 06:55 Neutrophils % 52.7 % (40.0-80.0) 03/27/17 06:18 Band Neutrophils % 4 % (0-10) 03/28/17 06:55 Lymphocytes % 33.3 % (20.0-50.0) 03/27/17 06:18 Monocytes % 12.4 % (2.0-10.0) H 03/27/17 06:18 Eosinophils % 0.6 % (0.0-5.0) 03/27/17 06:18 Basophils % 1.0 % (0.0-2.0) 03/27/17 06:18 Neutrophils (Manual) 68 % (40-80) 03/28/17 06:55 Lymphocytes 17 % (20-50) L 03/28/17 06:55 Monocytes 8 % (2-10) 03/28/17 06:55 Eosinophils 2 % (0-5) 03/26/17 06:41 Atypical Lymphocytes 3 % 03/28/17 06:55 Platelet Estimate ADEQUATE (NORMAL) 03/28/17 06:55 Platelet Morphology PLATELET CLUMPS SEEN (NORMAL) 03/28/17 06:55 Anisocytosis 1+ 03/28/17 06:55 RBC Morph Micro Appear ABNORMAL (NORMAL) 03/28/17 06:55 ESR 110 mm/hr (0-20) H 03/28/17 06:55 Eos Smear Source URINE 03/22/17 00:30 Eos Smear Total Cells NONE SEEN (NONE SEEN) 03/22/17 00:30 Sodium 140 mEq/L (136-145) 03/28/17 06:55 Potassium 3.7 mEq/L (3.5-5.1) 03/28/17 06:55 Chloride 113 mEq/L (98-107) H 03/28/17 06:55 Carbon Dioxide 22.0 mEq/L (21.0-31.0) 03/28/17 06:55 Anion Gap 8.7 (7.0-16.0) 03/28/17 06:55 BUN 20 mg/dL (7-25) 03/28/17 06:55 Creatinine 1.4 mg/dL (0.7-1.3) H 03/28/17 06:55 Est GFR ( Amer) > 60.0 ml/min (>90) 03/28/17 06:55 Est GFR (Non-Af Amer) 57.0 ml/min 03/28/17 06:55 BUN/Creatinine Ratio 14.3 03/28/17 06:55 Glucose 141 mg/dL (70-105) H 03/28/17 06:55 Plasma/Ser Osmolality 279 mOsmol/kg (275-295) 03/22/17 00:30 Uric Acid 10.1 mg/dL (4.4-7.6) H 03/22/17 06:00 Calcium 8.1 mg/dL (8.6-10.3) L 03/28/17 06:55 Phosphorus 2.0 mg/dL (2.5-5.0) L 03/27/17 06:18 Magnesium 2.6 mg/dL (1.9-2.7) 03/26/17 06:41 Ferritin 5024 ng/mL (30-400) H 03/23/17 06:10 Total Bilirubin 0.4 mg/dL (0.3-1.0) 03/28/17 06:55 Direct Bilirubin 0.12 mg/dL (0.0-0.2) 03/24/17 05:00 AST 105 U/L (13-39) H 03/28/17 06:55 ALT 70 U/L (7-52) H 03/28/17 06:55 Alkaline Phosphatase 44 U/L (34-104) 03/28/17 06:55 C-Reactive Protein 8.6 mg/dL (0.0-0.9) H 03/28/17 06:55 Total Protein 5.6 gm/dL (6.0-8.3) L 03/28/17 06:55 Albumin 2.4 gm/dL (4.2-5.5) L 03/28/17 06:55 Globulin 3.2 gm/dL 03/28/17 06:55 Albumin/Globulin Ratio 0.8 (1.0-1.8) L 03/28/17 06:55 Ceruloplasmin 36.4 mg/dL (16.0-31.0) H 03/23/17 06:10 Urine Source GRAY PORT 03/27/17 17:00 Urine Color YELLOW 03/27/17 17:00 Urine Clarity SLIGHT HAZY (CLEAR) 03/27/17 17:00 Urine pH 5.5 03/27/17 17:00 Ur Specific [place] 1.015 (1.005-1.030) 03/27/17 17:00 Urine Protein >300 mg/dL (NEGATIVE) H 03/27/17 17:00 Urine Glucose (UA) NEGATIVE mg/dL (NEGATIVE) 03/27/17 17:00 Urine Ketones NEGATIVE mg/dL (NEGATIVE) 03/27/17 17:00 Urine Blood MODERATE (NEGATIVE) H 03/27/17 17:00 Urine Nitrate NEGATIVE (NEGATIVE) 03/27/17 17:00 Urine Bilirubin NEGATIVE (NEGATIVE) 03/27/17 17:00 Urine Urobilinogen 0.2 E.U./dL (0.2 - 1.0) 03/27/17 17:00 Ur Leukocyte Esterase NEGATIVE (NEGATIVE) 03/27/17 17:00 Urine RBC 5-10 /hpf (0-5) H 03/27/17 17:00 Urine WBC 2-5 /hpf (0-5) H 03/27/17 17:00 Ur Epithelial Cells FEW /lpf (FEW) 03/27/17 17:00 Amorphous Sediment FEW URATES (NONE SEEN) 03/27/17 17:00 Urine Bacteria FEW /hpf (NONE SEEN) 03/27/17 17:00 Urine Osmolality 305 mOsmol/kg 03/22/17 00:30 Ur Random Sodium 12 mmol/L 03/22/17 00:30 Urine Creatinine 86.1 mg/dl (Not Estab.) 03/22/17 00:30 Urine Microalbumin 1521.4 ug/mL (Not Estab.) 03/22/17 00:30 Microalb/Creat Ratio 1767.0 mg/g creat (0.0-30.0) H 03/22/17 00:30 Urine Opiates Screen NEGATIVE (NEGATIVE) 03/22/17 00:30 Urine Methadone Screen NEGATIVE (NEGATIVE) 03/22/17 00:30 Ur Barbiturates Screen NEGATIVE (NEGATIVE) 03/22/17 00:30 Ur Tricyclics Screen NEGATIVE (NEGATIVE) 03/22/17 00:30 Ur Phencyclidine Scrn NEGATIVE (NEGATIVE) 03/22/17 00:30 Amphetamines Screen NEGATIVE (NEGATIVE) 03/22/17 00:30 U Methamphetamines Scrn NEGATIVE (NEGATIVE) 03/22/17 00:30 U Benzodiazepines Scrn NEGATIVE (NEGATIVE) 03/22/17 00:30 [place] 0.91 MEQ/L (0.50-1.00) 03/21/17 04:32 U Cocaine Metab Screen NEGATIVE (NEGATIVE) 03/22/17 00:30 U Cannabinoids Screen POSITIVE (NEGATIVE) H 03/22/17 00:30 Hepatitis A IgM Ab Negative (Negative) 03/23/17 06:10 Hep Bs Antigen Negative (Negative) 03/23/17 06:10 Hep B Core IgM Ab Negative (Negative) 03/23/17 06:10 Hepatitis C Antibody <0.1 s/co ratio (0.0-0.9) 03/23/17 06:10 - Physical Exam Vitals and I&O: Vital Signs Temp 101.2 F 03/28/17 12:00 Pulse 92 03/28/17 12:00 Resp 24 03/28/17 12:00 BP 125/75 03/28/17 12:00 Pulse Ox 96 03/28/17 09:45 Intake & Output 03/27/17 03/28/17 03/28/17 18:59 06:59 18:59 Intake Total 1000 1026.667 120 Balance 1000 1026.667 120 Intake: Intake, IV Amount 1000 1026.667 Cefepime 1 gm In Sodium 50 Chloride 0.9% 50 ml @ 100 mls/hr IV Q12HR [facility] Rx#: [id number] D5-0.9%Ns 1,000 ml @ 100 1000 976.667 mls/hr IV .Q10H [facility] Rx#: [id number] Oral 120 Active Medications: Current Medications Acetaminophen (Tylenol) 650 mg PO Q6H PRN PRN Reason: Mild Pain/Headache/T above 101 Stop: 05/19/17 22:01 Last Admin: 03/28/17 12:09 Dose: 650 mg Acetaminophen/Hydrocodone Bitart ([place] 10 Mg/325 Mg) 1 tab PO Q6H PRN PRN Reason: Pain (Severe) Stop: 05/27/17 13:49 Last Admin: 03/28/17 15:23 Dose: 1 tab Acetaminophen/Hydrocodone Bitart ([place] 10 Mg/325 Mg) 1 tab PO Q4H PRN PRN Reason: Pain (Severe) Stop: 05/27/17 17:48 Acetaminophen/Hydrocodone Bitart ([place] 5mg/325mg) 1 tab PO Q4H PRN PRN Reason: Moderate Pain Stop: 05/27/17 17:48 Al Hydrox/Mg Hydrox/Simethicone (Maalox) 30 ml PO Q6H PRN PRN Reason: GI UPSET Stop: 05/19/17 22:01 Albuterol Sulfate (Albuterol 2.5mg/3ml Neb Ud) 2.5 mg HHN Q6H PRN PRN Reason: Shortness of Breath Stop: 05/19/17 22:01 Benztropine Mesylate (Cogentin) 2 mg PO HS [facility] Stop: 05/20/17 20:59 Last Admin: 03/27/17 20:50 Dose: 2 mg Folic Acid (Folate) 1 mg PO DAILY [facility] Stop: 05/21/17 08:59 Last Admin: 03/28/17 08:40 Dose: 1 mg Gabapentin (Neurontin) 300 mg PO TID [facility] Stop: 05/20/17 13:59 Last Admin: 03/28/17 14:20 Dose: 300 mg Haloperidol (Haldol) 10 mg PO BID [facility] Stop: 05/20/17 08:59 Last Admin: 03/28/17 08:40 Dose: 10 mg Dextrose/Sodium Chloride (D5-0.9%Ns) 1,000 mls @ 100 mls/hr IV .Q10H [facility] Stop: 05/19/17 22:14 Last Admin: 03/28/17 02:26 Dose: 100 mls/hr Cefepime HCl 1 gm/ Sodium (Chloride) 50 mls @ 100 mls/hr IV Q12HR [facility] Stop: 05/26/17 20:59 Last Admin: 03/28/17 09:03 Dose: 100 mls/hr Ipratropium [place] (Atrovent Neb 0.5mg/2.5ml) 0.5 mg HHN Q6H PRN PRN Reason: Shortness of Breath Stop: 05/19/17 22:01 [place] Carbonate (Eskalith) 300 mg PO HS LUZMARIA PRN Reason: Protocol Stop: 05/20/17 20:59 Last Admin: 03/27/17 20:49 Dose: 300 mg Lorazepam (Ativan) 1 mg IVP Q4H PRN; Protocol PRN Reason: Anxiety/Agitation Stop: 05/27/17 17:48 Magnesium Hydroxide (Milk Of Magnesia) 30 ml PO HS PRN PRN Reason: Constipation Stop: 05/19/17 22:01 Last Admin: 03/25/17 22:54 Dose: 30 ml Miscellaneous (Clinical Monitoring) 1 ea MC DAILY PRN PRN Reason: RENAL Stop: 05/20/17 07:28 Ondansetron HCl (Zofran Odt) 4 mg PO Q6H PRN PRN Reason: Nausea / Vomiting Stop: 05/19/17 22:01 Thiamine HCl (Vitamin B1) 100 mg PO DAILY [facility] Stop: 05/21/17 08:59 Last Admin: 03/28/17 08:39 Dose: 100 mg Trazodone HCl (Desyrel) 50 mg PO HS LUZMARIA PRN Reason: Protocol Stop: 05/20/17 20:59 Last Admin: 03/27/17 20:50 Dose: 50 mg Nutritional Asmnt/Malnutr-PDOC - Dietary Evaluation Malnutrition Findings (Please click <Entered> for more info): Nutritional Asmnt/Malnutrition Start: 03/25/17 15: 13 Text: Status: Complete Freq: Document 03/25/17 15:13 [email or web address] (Rec: 03/25/17 15:30 [email or web address] [id number]) Nutritional Asmnt/Malnutrition Patient General Information Nutritional Screening Moderate Risk Screening Diagnosis Acute kidney injury, dehydration Pertinent Medical Hx/Surgical Hx Asthma, schizophrenia Subjective Information 51 year old male. Pt noted with poor PO intake since adm 03/20. Pt was sitting in a chair next to bed during visit , RN in room. Pt was very fixated on his urine output and gray catheter, pt either remained silent or expressed concern about his urine output , limited interview due to this and likely hx psychosis. Pt stated he does have appetite with taste bud present, however did not elaborate further regarding poor PO. Obtained CBW via bedscale with bed properly calibrated and then pt lying down. Current Diet Order/ Nutrition Support Regular Pertinent Medications Maalox, D5 0.9%, Folate, Haldol, MOM, Zofran, Vitamin B1 Pertinent Labs 03/23: Sodium 127L, BUN 46H, creaitnine 2.2H, glucose 107H 03/25: Sodium 130L (improving), BUN 32H (improving), creatinine 1.7H (improving) glucose 165H Nutritional Hx/Data Height 1.83 m Height (Calculated Centimeters) 182.9 Current Weight (lbs) 75.432 kg Weight (Calculated Kilograms) 75.4 Weight (Calculated Grams) 95497.4 [place] Body Weight 178 Weight Status Approriate GI Symptoms Food Allergies No Skin Integrity/Comment: Ryan 15. Skin intact. Current %PO Poor (25-49%) Estimated Nutritional Goals BEE in Kcals: Using Current wt Calories/Kcals/Kg CBW 75.4kg Kcals Calculated 1885-2262kcal (25-30kcal/kg) Protein: Using Current wt Protein Calculated 45g (0.6g/kg, monitor renal, improving) Fluid: ml 1885-2262ml (1ml/kcal) Nutritional Problem 1. Problem Problem Inadequate oral food beverage intake related to Etiology likely cognition aeb Signs/Symptoms: pt fixated on urine output and does not want to eat at this time Intervention/Recommendation Comments 1. Continue with regular diet. Continue to monitor sodium level and renal labs. Recommend low sodium diet if approrpaite. 2. Encourage PO intake, closely monitor. Pt appeared fixated on urine output and does not want to eat. Pt reported good appetite. RD explained importance of nutrition, pt nodded. 3. Monitor weight, prevent weight loss. Expected Outcomes/Goals Expected Outcomes/Goals 1. PO intake to meet at least 75% of estimated nutritional needs. Physician Parameters for PEM Serum Albumin (g/dl) 3.1 - 3.4 (Mild)
[2017-03-28] MEDS: Magnesium Hydroxide (MOM) 30 mL UDC PO PRN (19:50)
[2017-03-28] MEDS: Benztropine 1 MG TAB PO SCH (20:43)
[2017-03-29] MEDS: Hydrocodone/APAP 10 mg/325 mg Tab PO PRN ×3 (03:58→17:13)
[2017-03-29 05:32] LABS: HEMOGLOBIN 8.5 gm/dL (13.2-17.3)
[2017-03-29 05:37] LABS: MEAN CORPUSCULAR HEMOGLOBIN 32.2 pg (26.0-30.0); MEAN CORPUSCULAR HGB CONC 35.4 pg (28.0-36.0); MEAN PLATELET VOLUME 7.8 fl; PLATELET COUNT 209 Th/cmm (150-400); RED BLOOD COUNT 2.63 Mil/cmm (4.30-5.70); RED CELL DISTRIBUTION WIDTH 12.6 % (11.5-20.0)
[2017-03-29 05:47] LABS: ANION GAP 11.6 (7.0-16.0); BUN - UREA NITROGEN 23 mg/dL (7-25); BUN/CREATININE RATIO 16.4; CALCIUM SERUM 8.2 mg/dL (8.6-10.3); CARBON DIOXIDE 22.1 mEq/L (21.0-31.0); CHLORIDE 112 mEq/L (98-107); CREATININE - SERUM 1.4 mg/dL (0.7-1.3); GLUCOSE 152 mg/dL (70-105); POTASSIUM SERUM 3.7 mEq/L (3.5-5.1); SODIUM SERUM 142 mEq/L (136-145)
[2017-03-29 05:57] LABS: HEMATOCRIT 23.9 % (39.0-49.0); WHITE BLOOD COUNT 15.1 Th/cmm (4.8-10.8)
[2017-03-29] MEDS: D5-0.9%NS 1,000 ML IV SCH ×2 (06:53→22:57)
[2017-03-29 07:57] LABS: ANISOCYTOSIS 1+; BAND NEUTROPHILE 4 % (0-10); NEUTROPHILS 70 % (40-80); PLATELET ESTIMATE ADEQUATE (NORMAL); PLATELET MORPHOLOGY PLATELET CLUMPS SEEN (NORMAL); TOTAL CELLS COUNTED 100
[2017-03-29] MEDS: Cefepime 1 GM in Sodium Chloride 0.9% 50 ML IV SCH (09:22)
--- NOTE | 2017-03-29 09:48 | Consultation ---
DATE OF CONSULTATION: 03/27/2017 PRIMARY CARE PHYSICIAN: Dr. Rodas. HISTORY OF PRESENT ILLNESS: This is a 51-year-old male who was brought to the Emergency Room with complaint of generalized weakness. The patient was brought to [facility] where the patient was found to have renal failure and transferred to [facility]. The patient complained of diarrhea 4 days prior to arrival in the ER, loose several times a day without any blood in it. The patient was seen by Renal and started on IV fluids. The patient also had associated diarrhea. PAST MEDICAL HISTORY: Asthma. ALLERGIES: None. SOCIAL HISTORY: Ex-smoker. REVIEW OF SYSTEMS: A 14-point review of system negative except above on examination. The patient confused, reluctant to be examined. No seizure activity noted. No HIV, hepatitis, fall, trauma, bleeding, witnessed seizures. Rest of the review of systems unable to obtain. PHYSICAL EXAMINATION: GENERAL: The patient young male, well nourished with the following vital signs: VITAL SIGNS: Temperature is maximum 101.7, 4:00 in the morning, respirations 18, pulse 78, blood pressure 122/57, 98% oxygen saturation. HEENT: Mild pallor, no icterus or plaque. NECK: Supple. LUNGS: Breath sounds bilateral vesicular. CARDIOVASCULAR: S1, S2. ABDOMEN: Soft. Bowel sounds present. No cervical lymph nodes. LABORATORY DATA: White count 12,000, hemoglobin is 10 grams, platelets 160. Creatinine 1.4. AST and ALT 135 and 93. UA, more than 300 protein, 5-10 rbc and 2-5 wbc. Abdomen and pelvis CT scan done on March 25, shows distended gallbladder. Blood cultures negative so far. DIAGNOSES: 1. Fever secondary to urinary tract infection. The patient started on Maxipime and wait for the culture results. 2. Renal failure. We will monitor kidney function and renal followup. 3. Psychosis, lithium. 4. Depression, trazodone. 5. Nausea, vomiting Zofran. Thank you, Dr. Rodas, for this consultation. JOB# [id number]
[2017-03-29] MEDS ORDERED: Midazolam 1mg/ml 2 ml vial IV ONE (12:32)
[2017-03-29] MEDS ORDERED: fentaNYL Citrate 100 mcg/2mL Vial ONE (12:33)
[2017-03-29] MEDS ORDERED: Meperidine 25 mg/mL 1mL Syr IVP PRN (12:44)
[2017-03-29] MEDS ORDERED: Lactated Ringer 1,000 ML IV SCH (12:45)
[2017-03-29] MEDS ORDERED: Meperidine 25 mg/mL 1mL Syr ONE (13:22)
--- NOTE | 2017-03-29 15:27 | Consultation ---
DATE OF CONSULTATION: 03/29/2017 REFERRING PHYSICIAN: Dr. Rodas. REASON FOR CONSULTATION: Abscess, left perineal area. Thank you for referring this patient to me. HISTORY OF PRESENT ILLNESS: A 51-year-old male who was admitted because of weakness. He has a past history of asthma and schizophrenia. Per information from mother, the patient has been in board and [facility] for about 2 months and apparently developed this abscess about a week ago. PAST MEDICAL HISTORY: He has a history of anemia and asthma in addition to the schizophrenia. LABORATORY STUDIES: Today, WBC was 15,100 with hemoglobin of 8.5. The BUN and creatinine are normal. Glucose is 152. PHYSICAL EXAMINATION: The patient is noncommunicative. There is a large tender mass at the 5 o'clock location at the perianal region, which is very tender. IMPRESSION: Perirectal abscess. PLAN: Discussed with mother who will give the consent for the procedure. We will do sigmoidoscopy to determine any intraluminal connection with an abscess. I and D will be done, otherwise. If indicated, other procedures will be recommended. JOB# [id number] MTDD
--- NOTE | 2017-03-29 18:42 | General Progress Note ---
Subjective - Review of Systems Service Date: 03/29/17 Subjective: lying in bed, periods of agitation Objective - Results Result Diagrams: 03/29/17 05:15 03/29/17 05:15 Recent Labs: Laboratory Last Values WBC 15.1 Th/cmm (4.8-10.8) H D 03/29/17 05:15 RBC 2.63 Mil/cmm (4.30-5.70) L 03/29/17 05:15 Hgb 8.5 gm/dL (13.2-17.3) L 03/29/17 05:15 Hct 23.9 % (39.0-49.0) L* 03/29/17 05:15 MCV 91.0 fl (80-99) 03/29/17 05:15 MCH 32.2 pg (26.0-30.0) H 03/29/17 05:15 MCHC Differential 35.4 pg (28.0-36.0) 03/29/17 05:15 RDW 12.6 % (11.5-20.0) 03/29/17 05:15 Plt Count 209 Th/cmm (150-400) 03/29/17 05:15 MPV 7.8 fl 03/29/17 05:15 Neutrophils % 52.7 % (40.0-80.0) 03/27/17 06:18 Band Neutrophils % 4 % (0-10) 03/29/17 05:15 Lymphocytes % 33.3 % (20.0-50.0) 03/27/17 06:18 Monocytes % 12.4 % (2.0-10.0) H 03/27/17 06:18 Eosinophils % 0.6 % (0.0-5.0) 03/27/17 06:18 Basophils % 1.0 % (0.0-2.0) 03/27/17 06:18 Neutrophils (Manual) 70 % (40-80) 03/29/17 05:15 Lymphocytes 20 % (20-50) 03/29/17 05:15 Monocytes 6 % (2-10) 03/29/17 05:15 Eosinophils 2 % (0-5) 03/26/17 06:41 Atypical Lymphocytes 3 % 03/28/17 06:55 Platelet Estimate ADEQUATE (NORMAL) 03/29/17 05:15 Platelet Morphology PLATELET CLUMPS SEEN (NORMAL) 03/29/17 05:15 Anisocytosis 1+ 03/29/17 05:15 RBC Morph Micro Appear ABNORMAL (NORMAL) 03/29/17 05:15 ESR 112 mm/hr (0-20) H 03/29/17 05:15 Eos Smear Source URINE 03/22/17 00:30 Eos Smear Total Cells NONE SEEN (NONE SEEN) 03/22/17 00:30 Sodium 142 mEq/L (136-145) 03/29/17 05:15 Potassium 3.7 mEq/L (3.5-5.1) 03/29/17 05:15 Chloride 112 mEq/L (98-107) H 03/29/17 05:15 Carbon Dioxide 22.1 mEq/L (21.0-31.0) 03/29/17 05:15 Anion Gap 11.6 (7.0-16.0) 03/29/17 05:15 BUN 23 mg/dL (7-25) 03/29/17 05:15 Creatinine 1.4 mg/dL (0.7-1.3) H 03/29/17 05:15 Est GFR ( Amer) > 60.0 ml/min (>90) 03/29/17 05:15 Est GFR (Non-Af Amer) 57.0 ml/min 03/29/17 05:15 BUN/Creatinine Ratio 16.4 03/29/17 05:15 Glucose 152 mg/dL (70-105) H 03/29/17 05:15 Plasma/Ser Osmolality 279 mOsmol/kg (275-295) 03/22/17 00:30 Uric Acid 10.1 mg/dL (4.4-7.6) H 03/22/17 06:00 Calcium 8.2 mg/dL (8.6-10.3) L 03/29/17 05:15 Phosphorus 2.0 mg/dL (2.5-5.0) L 03/27/17 06:18 Magnesium 2.6 mg/dL (1.9-2.7) 03/26/17 06:41 Ferritin 5024 ng/mL (30-400) H 03/23/17 06:10 Total Bilirubin 0.4 mg/dL (0.3-1.0) 03/28/17 06:55 Direct Bilirubin 0.12 mg/dL (0.0-0.2) 03/24/17 05:00 AST 105 U/L (13-39) H 03/28/17 06:55 ALT 70 U/L (7-52) H 03/28/17 06:55 Alkaline Phosphatase 44 U/L (34-104) 03/28/17 06:55 Ammonia 39 umol/L (16-53) 03/28/17 18:22 C-Reactive Protein 12.7 mg/dL (0.0-0.9) H 03/29/17 05:15 Total Protein 5.6 gm/dL (6.0-8.3) L 03/28/17 06:55 Albumin 2.4 gm/dL (4.2-5.5) L 03/28/17 06:55 Globulin 3.2 gm/dL 03/28/17 06:55 Albumin/Globulin Ratio 0.8 (1.0-1.8) L 03/28/17 06:55 Ceruloplasmin 36.4 mg/dL (16.0-31.0) H 03/23/17 06:10 Urine Source GRAY PORT 03/27/17 17:00 Urine Color YELLOW 03/27/17 17:00 Urine Clarity SLIGHT HAZY (CLEAR) 03/27/17 17:00 Urine pH 5.5 03/27/17 17:00 Ur Specific [place] 1.015 (1.005-1.030) 03/27/17 17:00 Urine Protein >300 mg/dL (NEGATIVE) H 03/27/17 17:00 Urine Glucose (UA) NEGATIVE mg/dL (NEGATIVE) 03/27/17 17:00 Urine Ketones NEGATIVE mg/dL (NEGATIVE) 03/27/17 17:00 Urine Blood MODERATE (NEGATIVE) H 03/27/17 17:00 Urine Nitrate NEGATIVE (NEGATIVE) 03/27/17 17:00 Urine Bilirubin NEGATIVE (NEGATIVE) 03/27/17 17:00 Urine Urobilinogen 0.2 E.U./dL (0.2 - 1.0) 03/27/17 17:00 Ur Leukocyte Esterase NEGATIVE (NEGATIVE) 03/27/17 17:00 Urine RBC 5-10 /hpf (0-5) H 03/27/17 17:00 Urine WBC 2-5 /hpf (0-5) H 03/27/17 17:00 Ur Epithelial Cells FEW /lpf (FEW) 03/27/17 17:00 Amorphous Sediment FEW URATES (NONE SEEN) 03/27/17 17:00 Urine Bacteria FEW /hpf (NONE SEEN) 03/27/17 17:00 Urine Osmolality 305 mOsmol/kg 03/22/17 00:30 Ur Random Sodium 12 mmol/L 03/22/17 00:30 Urine Creatinine 86.1 mg/dl (Not Estab.) 03/22/17 00:30 Urine Microalbumin 1521.4 ug/mL (Not Estab.) 03/22/17 00:30 Microalb/Creat Ratio 1767.0 mg/g creat (0.0-30.0) H 03/22/17 00:30 Urine Opiates Screen NEGATIVE (NEGATIVE) 03/22/17 00:30 Urine Methadone Screen NEGATIVE (NEGATIVE) 03/22/17 00:30 Ur Barbiturates Screen NEGATIVE (NEGATIVE) 03/22/17 00:30 Ur Tricyclics Screen NEGATIVE (NEGATIVE) 03/22/17 00:30 Ur Phencyclidine Scrn NEGATIVE (NEGATIVE) 03/22/17 00:30 Amphetamines Screen NEGATIVE (NEGATIVE) 03/22/17 00:30 U Methamphetamines Scrn NEGATIVE (NEGATIVE) 03/22/17 00:30 U Benzodiazepines Scrn NEGATIVE (NEGATIVE) 03/22/17 00:30 [place] 0.91 MEQ/L (0.50-1.00) 03/21/17 04:32 U Cocaine Metab Screen NEGATIVE (NEGATIVE) 03/22/17 00:30 U Cannabinoids Screen POSITIVE (NEGATIVE) H 03/22/17 00:30 Hepatitis A IgM Ab Negative (Negative) 03/23/17 06:10 Hep Bs Antigen Negative (Negative) 03/23/17 06:10 Hep B Core IgM Ab Negative (Negative) 03/23/17 06:10 Hepatitis C Antibody <0.1 s/co ratio (0.0-0.9) 03/23/17 06:10 - Physical Exam Vitals and I&O: Vital Signs Temp 100.5 F 03/29/17 04:00 Pulse 89 03/29/17 07:50 Resp 18 03/29/17 07:50 BP 167/85 03/29/17 04:00 Pulse Ox 97 03/29/17 07:50 Intake & Output 03/28/17 03/29/17 03/29/17 18:59 06:59 18:59 Intake Total 1170 450 Output Total 850 Balance 1170 -400 Intake: Intake, IV Amount 1050 50 Cefepime 1 gm In Sodium 50 50 Chloride 0.9% 50 ml @ 100 mls/hr IV Q12HR [facility] Rx#: [id number] D5-0.9%Ns 1,000 ml @ 100 1000 mls/hr IV .Q10H [facility] Rx#: [id number] Oral 120 400 Output: Urine 850 Active Medications: Current Medications Acetaminophen (Tylenol) 650 mg PO Q6H PRN PRN Reason: Mild Pain/Headache/T above 101 Stop: 05/19/17 22:01 Last Admin: 03/29/17 04:01 Dose: 650 mg Acetaminophen/Hydrocodone Bitart ([place] 10 Mg/325 Mg) 1 tab PO Q4H PRN PRN Reason: Pain (Severe) Stop: 05/27/17 17:48 Last Admin: 03/29/17 17:13 Dose: 1 tab Acetaminophen/Hydrocodone Bitart ([place] 5mg/325mg) 1 tab PO Q4H PRN PRN Reason: Moderate Pain Stop: 05/27/17 17:48 Al Hydrox/Mg Hydrox/Simethicone (Maalox) 30 ml PO Q6H PRN PRN Reason: GI UPSET Stop: 05/19/17 22:01 Albuterol Sulfate (Albuterol 2.5mg/3ml Neb Ud) 2.5 mg HHN Q6H PRN PRN Reason: Shortness of Breath Stop: 05/19/17 22:01 Benztropine Mesylate (Cogentin) 2 mg PO HS [facility] Stop: 05/20/17 20:59 Last Admin: 03/28/17 20:43 Dose: 2 mg Folic Acid (Folate) 1 mg PO DAILY [facility] Stop: 05/21/17 08:59 Last Admin: 03/29/17 08:48 Dose: 1 mg Gabapentin (Neurontin) 300 mg PO TID [facility] Stop: 05/20/17 13:59 Last Admin: 03/29/17 14:15 Dose: Not Given Haloperidol (Haldol) 10 mg PO BID [facility] Stop: 05/20/17 08:59 Last Admin: 03/29/17 17:10 Dose: 10 mg Dextrose/Sodium Chloride (D5-0.9%Ns) 1,000 mls @ 100 mls/hr IV .Q10H [facility] Stop: 05/19/17 22:14 Last Admin: 03/29/17 06:53 Dose: 100 mls/hr Piperacillin Sod/Tazobactam (Sod 3.375 gm/ Dextrose) 50 mls @ 100 mls/hr IV Q8H [facility] Stop: 05/28/17 12:59 Last Admin: 03/29/17 13:05 Dose: 100 mls/hr Ipratropium [place] (Atrovent Neb 0.5mg/2.5ml) 0.5 mg HHN Q6H PRN PRN Reason: Shortness of Breath Stop: 05/19/17 22:01 [place] Carbonate (Eskalith) 300 mg PO HS [facility] PRN Reason: Protocol Stop: 05/20/17 20:59 Last Admin: 03/28/17 20:43 Dose: 300 mg Lorazepam (Ativan) 1 mg IVP Q4H PRN; Protocol PRN Reason: Anxiety/Agitation Stop: 05/27/17 17:48 Last Admin: 03/29/17 13:40 Dose: 1 mg Magnesium Hydroxide (Milk Of Magnesia) 30 ml PO HS PRN PRN Reason: Constipation Stop: 05/19/17 22:01 Last Admin: 03/28/17 19:50 Dose: 30 ml Metronidazole (Flagyl) 500 mg PO BID [facility] Stop: 04/05/17 16:59 Last Admin: 03/29/17 17:10 Dose: 500 mg Miscellaneous (Clinical Monitoring) 1 ea MC DAILY PRN PRN Reason: RENAL Stop: 05/20/17 07:28 Ondansetron HCl (Zofran Odt) 4 mg PO Q6H PRN PRN Reason: Nausea / Vomiting Stop: 05/19/17 22:01 Thiamine HCl (Vitamin B1) 100 mg PO DAILY [facility] Stop: 05/21/17 08:59 Last Admin: 03/29/17 08:48 Dose: 100 mg Trazodone HCl (Desyrel) 50 mg PO HS [facility] PRN Reason: Protocol Stop: 05/20/17 20:59 Last Admin: 03/28/17 21:00 Dose: 50 mg General: Moderate distress HEENT: Atraumatic, Mucous membr. moist/pink Neck: Supple, +2 carotid pulse wo bruit Cardiovascular: Regular rate, Normal S1, Normal S2 Lungs: Clear to auscultation Abdomen: Bowel sounds, Soft, Other (perirectal abscess) Extremities: no Edema Neurological: Sensation intact Skin: no Rash Psych/Mental Status: Other (agitated) Assessment/Plan - Assessment Assessment: ERICA on CKD Hyponatremia 2nd to Na loss watery diarrhea possible acute gastroenteritis, C. Diff Gen. 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, illegal drugs) outlet obstruction 2/2 BPH Perirectal abscess s/p I/D - Plan Plan: Lab - Result Diagrams 03/22/17 06:00 03/22/17 06:00 Current Medications Acetaminophen (Tylenol) 650 mg PO Q6H PRN PRN Reason: Mild Pain/Headache/T above 101 Stop: 05/19/17 22:01 Last Admin: 03/21/17 22:17 Dose: 650 mg Acetaminophen/Hydrocodone Bitart ([place] 10 Mg/325 Mg) 1 tab PO Q6H PRN PRN Reason: Severe Pain Stop: 05/19/17 22:01 Last Admin: 03/21/17 18:37 Dose: 1 tab Acetaminophen/Hydrocodone Bitart ([place] 5mg/325mg) 1 tab PO Q6H PRN PRN Reason: Moderate Pain Stop: 05/19/17 22:01 Al Hydrox/Mg Hydrox/Simethicone (Maalox) 30 ml PO Q6H PRN PRN Reason: Constipation Stop: 05/19/17 22:01 Albuterol Sulfate (Albuterol 2.5mg/3ml Neb Ud) 2.5 mg HHN Q6H PRN PRN Reason: Shortness of Breath Stop: 05/19/17 22:01 Benztropine Mesylate (Cogentin) 2 mg PO HS [facility] Stop: 05/20/17 20:59 Last Admin: 03/21/17 22:16 Dose: 2 mg Folic Acid (Folate) 1 mg PO DAILY [facility] Stop: 05/21/17 08:59 Last Admin: 03/22/17 08:26 Dose: 1 mg Gabapentin (Neurontin) 300 mg PO TID [facility] Stop: 05/20/17 13:59 Last Admin: 03/22/17 08:26 Dose: 300 mg Haloperidol (Haldol) 10 mg PO BID [facility] Stop: 05/20/17 08:59 Last Admin: 03/22/17 16:25 Dose: 10 mg Dextrose/Sodium Chloride (D5-0.9%Ns) 1,000 mls @ 100 mls/hr IV .Q10H [facility] Stop: 05/19/17 22:14 Last Admin: 03/22/17 08:27 Dose: 100 mls/hr Ipratropium [place] (Atrovent Neb 0.5mg/2.5ml) 0.5 mg HHN Q6H PRN PRN Reason: Shortness of Breath Stop: 05/19/17 22:01 [place] Carbonate (Eskalith) 300 mg PO HS [facility] PRN Reason: Protocol Stop: 05/20/17 20:59 Last Admin: 03/21/17 22:16 Dose: 300 mg Lorazepam (Ativan) 1 mg IVP Q4H PRN; Protocol PRN Reason: Anxiety/Agitation Stop: 05/19/17 22:01 Magnesium Hydroxide (Milk Of Magnesia) 30 ml PO HS PRN PRN Reason: Constipation Stop: 05/19/17 22:01 Miscellaneous (Clinical Monitoring) 1 ea MC DAILY PRN PRN Reason: RENAL Stop: 05/20/17 07:28 Ondansetron HCl (Zofran Odt) 4 mg PO Q6H PRN PRN Reason: Nausea / Vomiting Stop: 05/19/17 22:01 Thiamine HCl (Vitamin B1) 100 mg PO DAILY [facility] Stop: 05/21/17 08:59 Last Admin: 03/22/17 08:26 Dose: 100 mg Trazodone HCl (Desyrel) 50 mg PO HS [facility] PRN Reason: Protocol Stop: 05/20/17 20:59 Last Admin: 03/21/17 22:16 Dose: 50 mg Na up to 142 BUN/CR improved to 22/1.4 started to eat & continue ivf encouraged increase po intake f/u electrolytes will need Gray cath until seen by urology underwent I/D of perirectal abscess Nutritional Asmnt/Malnutr-PDOC - Dietary Evaluation Malnutrition Findings (Please click <Entered> for more info): Nutritional Asmnt/Malnutrition Start: 03/25/17 15: 13 Text: Status: Complete Freq: Document 03/25/17 15:13 GSUN (Rec: 03/25/17 15:30 CLAU [id number]) Nutritional Asmnt/Malnutrition Patient General Information Nutritional Screening Moderate Risk Screening Diagnosis Acute kidney injury, dehydration Pertinent Medical Hx/Surgical Hx Asthma, schizophrenia Subjective Information 51 year old male. Pt noted with poor PO intake since adm 03/20. Pt was sitting in a chair next to bed during visit , RN in room. Pt was very fixated on his urine output and gray catheter, pt either remained silent or expressed concern about his urine output , limited interview due to this and likely hx psychosis. Pt stated he does have appetite with taste bud present, however did not elaborate further regarding poor PO. Obtained CBW via bedscale with bed properly calibrated and then pt lying down. Current Diet Order/ Nutrition Support Regular Pertinent Medications Maalox, D5 0.9%, Folate, Haldol, MOM, Zofran, Vitamin B1 Pertinent Labs 03/23: Sodium 127L, BUN 46H, creaitnine 2.2H, glucose 107H 03/25: Sodium 130L (improving), BUN 32H (improving), creatinine 1.7H (improving) glucose 165H Nutritional Hx/Data Height 1.83 m Height (Calculated Centimeters) 182.9 Current Weight (lbs) 75.432 kg Weight (Calculated Kilograms) 75.4 Weight (Calculated Grams) 09229.4 Graff Body Weight 178 Weight Status Approriate GI Symptoms Food Allergies No Skin Integrity/Comment: Ryan 15. Skin intact. Current %PO Poor (25-49%) Estimated Nutritional Goals BEE in Kcals: Using Current wt Calories/Kcals/Kg CBW 75.4kg Kcals Calculated 1885-2262kcal (25-30kcal/kg) Protein: Using Current wt Protein Calculated 45g (0.6g/kg, monitor renal, improving) Fluid: ml 1885-2262ml (1ml/kcal) Nutritional Problem 1. Problem Problem Inadequate oral food beverage intake related to Etiology likely cognition aeb Signs/Symptoms: pt fixated on urine output and does not want to eat at this time Intervention/Recommendation Comments 1. Continue with regular diet. Continue to monitor sodium level and renal labs. Recommend low sodium diet if approrpaite. 2. Encourage PO intake, closely monitor. Pt appeared fixated on urine output and does not want to eat. Pt reported good appetite. RD explained importance of nutrition, pt nodded. 3. Monitor weight, prevent weight loss. Expected Outcomes/Goals Expected Outcomes/Goals 1. PO intake to meet at least 75% of estimated nutritional needs. Physician Parameters for PEM Serum Albumin (g/dl) 3.1 - 3.4 (Mild)
--- NOTE | 2017-03-29 19:22 | Operative Report ---
DATE OF SURGERY: 03/29/2017 PREOPERATIVE DIAGNOSES: 1. Abscess, left perineal area. 2. Schizophrenia. 3. Asthma. POSTOPERATIVE DIAGNOSES: 1. Abscess, left perineal area. 2. Schizophrenia. 3. Asthma. OPERATION DONE: 1. Sigmoidoscopy. 2. Incision and drainage of left perirectal abscess. SURGEON: Giselle Stover M.D. ANESTHESIA: General. ANESTHESIOLOGIST: Barbara Weber M.D. PROCEDURE: The patient was given general anesthesia. She was then placed in the dorsal lithotomy position. The sigmoidoscope was introduced. There was, however, poor prep and visualization was limited. There, however, was no evidence of internal hemorrhoid and/or any opening that might be the reason for any fistula. Following sigmoidoscopy the perineum was prepped with Betadine and draped. The abscess was incised in a vertical fashion. Then culture was taken. The abscess was probed with the finger and this went superiorly for a distance of approximately 3 inches. Attempt to probe did not find any internal connection. The wound was packed with iodoform gauze. The findings were communicated to the mother. JOB# [id number]
--- NOTE | 2017-03-29 20:44 | Progress Notes ---
DATE: 03/28/2017 SUBJECTIVE: The patient is awake. The patient is confused. The patient is on IV antibiotics. The patient is on IV fluids. The patient is receiving inpatient neb treatment. OBJECTIVE: VITAL SIGNS: Temperature 101.2, pulse 92, blood pressure per nursing, respiratory rate 24, O2 saturation on room air. CARDIOVASCULAR: S1 and S2. RESPIRATORY: Clear. GASTROINTESTINAL: Soft. Positive bowel sounds. LABORATORY DATA: Hematology: hemoglobin 8.6, hematocrit 24.8, platelet count 207, 60% neutrophils. Chemistry: Sodium 140, potassium 3.7, bicarb 22, BUN 20, creatinine 0.4. GFR is 160, glucose 141, calcium 8.1, total bilirubin 0.4, AST 105, ALT 70, alkaline phosphatase 44. C-reactive protein 8.6, total protein 5.6, albumin 2.4, globulin 3.2. Microbiology: MRSA screening from 03/20/2017 is positive for MRSA. Blood culture from 03/27/2017 shows gram-positive cocci in clusters. Urine culture from 03/27/2017 pending. ASSESSMENT: 1. Sepsis. 2. Bacteriemia gram-positive cocci. 3. Leukocytosis. 4. Anemia. 5. Acute kidney injury. 6. Hyperglycemia. 7. Hypocalcemia. 8. Transaminitis. 9. Hypoalbuminemia. 10. Protein-calorie malnutrition (severe). 11. Altered mental status. 12. MRSA colonization. 13. Polysubstance abuse. 14. History of schizophrenia. 15. Benign prostatic hypertrophy. 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 17. History of epilepsy. PLAN: Continue current medication and treatment. Obtain labs. Awaiting culture results. Awaiting psychiatric consultation. We will obtain Neurology consultation. Further recommendations per consults. JOB# [id number] MTDD
[2017-03-29] MEDS: Benztropine 1 MG TAB PO SCH (21:35)
[2017-03-29] MEDS: Morphine Sulfate 2 mg/mL 1mL Syr IVP PRN (22:50)
[2017-03-30 07:15] LABS: % BASOPHILS 0.6 % (0.0-2.0); % EOSINOPHILS 0.2 % (0.0-5.0); % LYMPHOCYTES 31.9 % (20.0-50.0); % MONOCYTES 11.3 % (2.0-10.0); HEMATOCRIT 25.5 % (39.0-49.0); HEMOGLOBIN 9.1 gm/dL (13.2-17.3); MEAN CELL VOLUME 86.7 fl (80-99); MEAN CORPUSCULAR HEMOGLOBIN 30.8 pg (26.0-30.0); MEAN CORPUSCULAR HGB CONC 35.5 pg (28.0-36.0); MEAN PLATELET VOLUME 8.1 fl; NEUTROPHILE ABSOLUTE 7.8 Th/cmm (1.8-8.0); PLATELET COUNT 205 Th/cmm (150-400); RED BLOOD COUNT 2.94 Mil/cmm (4.30-5.70); RED CELL DISTRIBUTION WIDTH 12.9 % (11.5-20.0)
[2017-03-30 07:29] LABS: ANION GAP 9.2 (7.0-16.0); BUN - UREA NITROGEN 23 mg/dL (7-25); BUN/CREATININE RATIO 16.4; CALCIUM SERUM 8.3 mg/dL (8.6-10.3); CARBON DIOXIDE 23.7 mEq/L (21.0-31.0); CHLORIDE 118 mEq/L (98-107); CREATININE - SERUM 1.4 mg/dL (0.7-1.3); GLUCOSE 145 mg/dL (70-105); POTASSIUM SERUM 3.9 mEq/L (3.5-5.1); SODIUM SERUM 147 mEq/L (136-145)
[2017-03-30 07:52] LABS: CREATINE KINASE MB 12.6 ng/mL (0.6-6.3)
--- NOTE | 2017-03-30 08:10 | Progress Notes ---
DATE: 03/29/2017 Case was discussed with staff of the patient, reviewed records. The patient apparently had abscess in his lower anus area. The patient is about to go to surgery. The patient has been in pain. Continues to be unable to participate in a meaningful conversation. He is currently on Haldol and lithium. I would recommend to continue medication. We may need to take him off the lithium. Apparently, he was found by his family not responsive, not eating for a few days, and also when I talked to him, he talked about using alcohol, they had him on the Neurontin, B12, thiamine, and multivitamins. The patient needs to follow up with the psychiatrist upon discharge. Thank you very much for allowing me to participate in the care of this most interesting gentleman. JOB# [id number]
[2017-03-30] MEDS: Morphine Sulfate 2 mg/mL 1mL Syr IVP PRN ×2 (08:43→15:05)
[2017-03-30] MEDS: D5-0.9%NS 1,000 ML IV SCH (09:01)
--- NOTE | 2017-03-30 13:05 | Diagnostic Imaging Report ---
Head CT without intravenous contrast Indication: CVA Comparison: None Technique: Axial images were obtained from the vertex to the skull base without IV contrast. Coronal reconstructions were made. Total DLP: 721, CTDI38 FINDINGS: Images of the brain obtained without contrast demonstrate no acute hemorrhage. No mass lesions identified. The ventricles and basal cisterns are patent. The duarte-white matter differentiation is preserved. There is no mass effect or midline shift. No skull fractures identified. No soft tissue swelling. The paranasal sinuses are clear. Scalp calcifications are noted. Age-indeterminate nasal fractures are noted. IMPRESSION: No CT evidence of acute intracranial abnormality. MRI is more sensitive if warranted. Age-indeterminate nasal fractures.
[2017-03-30] MEDS ORDERED: Thrombin, Bovine 5,000 IU Vial TP ONE (13:53)
[2017-03-30] MEDS ORDERED: D5-0.45NS 1,000 ML IV SCH (14:02)
--- NOTE | 2017-03-30 14:06 | General Progress Note ---
Subjective - Review of Systems Service Date: 03/30/17 Subjective: lying in bed, periods of agitation Objective - Results Result Diagrams: 03/30/17 06:30 03/30/17 06:30 Recent Labs: Laboratory Last Values WBC 14.0 Th/cmm (4.8-10.8) H 03/30/17 06:30 RBC 2.94 Mil/cmm (4.30-5.70) L 03/30/17 06:30 Hgb 9.1 gm/dL (13.2-17.3) L 03/30/17 06:30 Hct 25.5 % (39.0-49.0) L 03/30/17 06:30 MCV 86.7 fl (80-99) 03/30/17 06:30 MCH 30.8 pg (26.0-30.0) H 03/30/17 06:30 MCHC Differential 35.5 pg (28.0-36.0) 03/30/17 06:30 RDW 12.9 % (11.5-20.0) 03/30/17 06:30 Plt Count 205 Th/cmm (150-400) 03/30/17 06:30 MPV 8.1 fl 03/30/17 06:30 Neutrophils % 56.0 % (40.0-80.0) 03/30/17 06:30 Band Neutrophils % 4 % (0-10) 03/29/17 05:15 Lymphocytes % 31.9 % (20.0-50.0) 03/30/17 06:30 Monocytes % 11.3 % (2.0-10.0) H 03/30/17 06:30 Eosinophils % 0.2 % (0.0-5.0) 03/30/17 06:30 Basophils % 0.6 % (0.0-2.0) 03/30/17 06:30 Neutrophils (Manual) 70 % (40-80) 03/29/17 05:15 Lymphocytes 20 % (20-50) 03/29/17 05:15 Monocytes 6 % (2-10) 03/29/17 05:15 Eosinophils 2 % (0-5) 03/26/17 06:41 Atypical Lymphocytes 3 % 03/28/17 06:55 Platelet Estimate ADEQUATE (NORMAL) 03/29/17 05:15 Platelet Morphology PLATELET CLUMPS SEEN (NORMAL) 03/29/17 05:15 Anisocytosis 1+ 03/29/17 05:15 RBC Morph Micro Appear ABNORMAL (NORMAL) 03/29/17 05:15 ESR 132 mm/hr (0-20) H 03/30/17 06:30 Eos Smear Source URINE 03/22/17 00:30 Eos Smear Total Cells NONE SEEN (NONE SEEN) 03/22/17 00:30 Sodium 147 mEq/L (136-145) H 03/30/17 06:30 Potassium 3.9 mEq/L (3.5-5.1) 03/30/17 06:30 Chloride 118 mEq/L (98-107) H 03/30/17 06:30 Carbon Dioxide 23.7 mEq/L (21.0-31.0) 03/30/17 06:30 Anion Gap 9.2 (7.0-16.0) 03/30/17 06:30 BUN 23 mg/dL (7-25) 03/30/17 06:30 Creatinine 1.4 mg/dL (0.7-1.3) H 03/30/17 06:30 Est GFR ( Amer) > 60.0 ml/min (>90) 03/30/17 06:30 Est GFR (Non-Af Amer) 57.0 ml/min 03/30/17 06:30 BUN/Creatinine Ratio 16.4 03/30/17 06:30 Glucose 145 mg/dL (70-105) H 03/30/17 06:30 Plasma/Ser Osmolality 279 mOsmol/kg (275-295) 03/22/17 00:30 Uric Acid 10.1 mg/dL (4.4-7.6) H 03/22/17 06:00 Calcium 8.3 mg/dL (8.6-10.3) L 03/30/17 06:30 Phosphorus 2.0 mg/dL (2.5-5.0) L 03/27/17 06:18 Magnesium 2.6 mg/dL (1.9-2.7) 03/26/17 06:41 Ferritin 5024 ng/mL (30-400) H 03/23/17 06:10 Total Bilirubin 0.4 mg/dL (0.3-1.0) 03/28/17 06:55 Direct Bilirubin 0.12 mg/dL (0.0-0.2) 03/24/17 05:00 AST 105 U/L (13-39) H 03/28/17 06:55 ALT 70 U/L (7-52) H 03/28/17 06:55 Alkaline Phosphatase 44 U/L (34-104) 03/28/17 06:55 Ammonia 28 umol/L (16-53) 03/29/17 20:39 Creatine Kinase 1985 U/L (30-223) H 03/30/17 06:30 CK-MB (CK-2) 12.6 ng/mL (0.6-6.3) H 03/30/17 06:30 Troponin I 0.24 ng/mL (0.01-0.05) H* 03/30/17 06:30 C-Reactive Protein 12.7 mg/dL (0.0-0.9) H 03/29/17 05:15 Total Protein 5.6 gm/dL (6.0-8.3) L 03/28/17 06:55 Albumin 2.4 gm/dL (4.2-5.5) L 03/28/17 06:55 Globulin 3.2 gm/dL 03/28/17 06:55 Albumin/Globulin Ratio 0.8 (1.0-1.8) L 03/28/17 06:55 Ceruloplasmin 36.4 mg/dL (16.0-31.0) H 03/23/17 06:10 Urine Source GRAY PORT 03/27/17 17:00 Urine Color YELLOW 03/27/17 17:00 Urine Clarity SLIGHT HAZY (CLEAR) 03/27/17 17:00 Urine pH 5.5 03/27/17 17:00 Ur Specific [place] 1.015 (1.005-1.030) 03/27/17 17:00 Urine Protein >300 mg/dL (NEGATIVE) H 03/27/17 17:00 Urine Glucose (UA) NEGATIVE mg/dL (NEGATIVE) 03/27/17 17:00 Urine Ketones NEGATIVE mg/dL (NEGATIVE) 03/27/17 17:00 Urine Blood MODERATE (NEGATIVE) H 03/27/17 17:00 Urine Nitrate NEGATIVE (NEGATIVE) 03/27/17 17:00 Urine Bilirubin NEGATIVE (NEGATIVE) 03/27/17 17:00 Urine Urobilinogen 0.2 E.U./dL (0.2 - 1.0) 03/27/17 17:00 Ur Leukocyte Esterase NEGATIVE (NEGATIVE) 03/27/17 17:00 Urine RBC 5-10 /hpf (0-5) H 03/27/17 17:00 Urine WBC 2-5 /hpf (0-5) H 03/27/17 17:00 Ur Epithelial Cells FEW /lpf (FEW) 03/27/17 17:00 Amorphous Sediment FEW URATES (NONE SEEN) 03/27/17 17:00 Urine Bacteria FEW /hpf (NONE SEEN) 03/27/17 17:00 Urine Osmolality 305 mOsmol/kg 03/22/17 00:30 Ur Random Sodium 12 mmol/L 03/22/17 00:30 Urine Creatinine 86.1 mg/dl (Not Estab.) 03/22/17 00:30 Urine Microalbumin 1521.4 ug/mL (Not Estab.) 03/22/17 00:30 Microalb/Creat Ratio 1767.0 mg/g creat (0.0-30.0) H 03/22/17 00:30 Urine Opiates Screen NEGATIVE (NEGATIVE) 03/22/17 00:30 Urine Methadone Screen NEGATIVE (NEGATIVE) 03/22/17 00:30 Ur Barbiturates Screen NEGATIVE (NEGATIVE) 03/22/17 00:30 Ur Tricyclics Screen NEGATIVE (NEGATIVE) 03/22/17 00:30 Ur Phencyclidine Scrn NEGATIVE (NEGATIVE) 03/22/17 00:30 Amphetamines Screen NEGATIVE (NEGATIVE) 03/22/17 00:30 U Methamphetamines Scrn NEGATIVE (NEGATIVE) 03/22/17 00:30 U Benzodiazepines Scrn NEGATIVE (NEGATIVE) 03/22/17 00:30 [place] 0.91 MEQ/L (0.50-1.00) 03/21/17 04:32 U Cocaine Metab Screen NEGATIVE (NEGATIVE) 03/22/17 00:30 U Cannabinoids Screen POSITIVE (NEGATIVE) H 03/22/17 00:30 Hepatitis A IgM Ab Negative (Negative) 03/23/17 06:10 Hep Bs Antigen Negative (Negative) 03/23/17 06:10 Hep B Core IgM Ab Negative (Negative) 03/23/17 06:10 Hepatitis C Antibody <0.1 s/co ratio (0.0-0.9) 04/26/17 06:10 - Physical Exam Vitals and I&O: Vital Signs Temp 98.0 F 03/30/17 12:00 Pulse 102 03/30/17 12:00 Resp 18 03/30/17 12:00 BP 149/88 03/30/17 12:00 Pulse Ox 98 03/30/17 12:00 Intake & Output 03/29/17 03/30/17 03/30/17 18:59 06:59 18:59 Intake Total 50 1300 1000 Output Total 1400 Balance 50 -100 1000 Intake: Intake, IV Amount 50 1100 1000 D5-0.9%Ns 1,000 ml @ 100 1000 1000 mls/hr IV .Q10H [facility] Rx#: [id number] Piperacillin Sodium/ 50 100 Tazobact 3.375 gm In Dextrose 5% 50 ml @ 100 mls/hr IV Q8H [facility] Rx#: [id number] Oral 200 Output: Urine 1400 Active Medications: Current Medications Acetaminophen (Tylenol) 650 mg PO Q6H PRN PRN Reason: Mild Pain/Headache/T above 101 Stop: 05/19/17 22:01 Last Admin: 03/30/17 08:43 Dose: 650 mg Acetaminophen/Hydrocodone Bitart ([place] 10 Mg/325 Mg) 1 tab PO Q4H PRN PRN Reason: Pain (Severe) Stop: 05/27/17 17:48 Last Admin: 03/29/17 17:13 Dose: 1 tab Acetaminophen/Hydrocodone Bitart ([place] 5mg/325mg) 1 tab PO Q4H PRN PRN Reason: Moderate Pain Stop: 05/27/17 17:48 Al Hydrox/Mg Hydrox/Simethicone (Maalox) 30 ml PO Q6H PRN PRN Reason: GI UPSET Stop: 05/19/17 22:01 Albuterol Sulfate (Albuterol 2.5mg/3ml Neb Ud) 2.5 mg HHN Q6H PRN PRN Reason: Shortness of Breath Stop: 05/19/17 22:01 Benztropine Mesylate (Cogentin) 2 mg PO HS [facility] Stop: 05/20/17 20:59 Last Admin: 03/29/17 21:35 Dose: 2 mg Folic Acid (Folate) 1 mg PO DAILY [facility] Stop: 05/21/17 08:59 Last Admin: 03/30/17 08:42 Dose: 1 mg Gabapentin (Neurontin) 400 mg PO TID [facility] Stop: 05/29/17 07:48 Last Admin: 03/30/17 13:41 Dose: 400 mg Haloperidol (Haldol) 10 mg PO BID [facility] Stop: 05/20/17 08:59 Last Admin: 03/30/17 08:42 Dose: 10 mg Piperacillin Sod/Tazobactam (Sod 3.375 gm/ Dextrose) 50 mls @ 100 mls/hr IV Q8H [facility] Stop: 05/28/17 12:59 Last Admin: 03/30/17 13:41 Dose: 100 mls/hr Dextrose/Sodium Chloride (D5-0.45ns) 1,000 mls @ 50 mls/hr IV .Q20H [facility] Stop: 05/29/17 14:01 Ipratropium [place] (Atrovent Neb 0.5mg/2.5ml) 0.5 mg HHN Q6H PRN PRN Reason: Shortness of Breath Stop: 05/19/17 22:01 Lorazepam (Ativan) 1 mg IVP Q4H PRN; Protocol PRN Reason: Anxiety/Agitation Stop: 05/27/17 17:48 Last Admin: 03/30/17 11:07 Dose: 1 mg Magnesium Hydroxide (Milk Of Magnesia) 30 ml PO HS PRN PRN Reason: Constipation Stop: 05/19/17 22:01 Last Admin: 03/28/17 19:50 Dose: 30 ml Metronidazole (Flagyl) 500 mg PO BID [facility] Stop: 04/05/17 16:59 Last Admin: 03/30/17 08:42 Dose: 500 mg Miscellaneous (Clinical Monitoring) 1 ea MC DAILY PRN PRN Reason: RENAL Stop: 05/20/17 07:28 Morphine Sulfate (Morphine) 2 mg IVP Q4HR PRN PRN Reason: Pain (Moderate) Stop: 05/28/17 22:27 Last Admin: 03/30/17 08:43 Dose: 2 mg Ondansetron HCl (Zofran Odt) 4 mg PO Q6H PRN PRN Reason: Nausea / Vomiting Stop: 05/19/17 22:01 Thiamine HCl (Vitamin B1) 100 mg PO DAILY [facility] Stop: 05/21/17 08:59 Last Admin: 03/30/17 08:43 Dose: 100 mg Trazodone HCl (Desyrel) 50 mg PO HS LUZMARIA PRN Reason: Protocol Stop: 05/20/17 20:59 Last Admin: 03/29/17 21:35 Dose: 50 mg General: Alert, Moderate distress HEENT: Atraumatic, Mucous membr. moist/pink Neck: Supple, +2 carotid pulse wo bruit Cardiovascular: Regular rate, Normal S1, Normal S2 Lungs: Clear to auscultation Abdomen: Bowel sounds, Soft Extremities: no Edema Neurological: Sensation intact Skin: no Rash Assessment/Plan - Assessment Assessment: ERICA on CKD Hyponatremia 2nd to Na loss watery diarrhea possible acute gastroenteritis, C. Diff Gen. 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, illegal drugs) outlet obstruction 2/2 BPH Perirectal abscess s/p I/D - Plan Plan: Lab - Result Diagrams 03/22/17 06:00 03/22/17 06:00 Current Medications Acetaminophen (Tylenol) 650 mg PO Q6H PRN PRN Reason: Mild Pain/Headache/T above 101 Stop: 05/19/17 22:01 Last Admin: 03/21/17 22:17 Dose: 650 mg Acetaminophen/Hydrocodone Bitart ([place] 10 Mg/325 Mg) 1 tab PO Q6H PRN PRN Reason: Severe Pain Stop: 05/19/17 22:01 Last Admin: 03/21/17 18:37 Dose: 1 tab Acetaminophen/Hydrocodone Bitart ([place] 5mg/325mg) 1 tab PO Q6H PRN PRN Reason: Moderate Pain Stop: 05/19/17 22:01 Al Hydrox/Mg Hydrox/Simethicone (Maalox) 30 ml PO Q6H PRN PRN Reason: Constipation Stop: 05/19/17 22:01 Albuterol Sulfate (Albuterol 2.5mg/3ml Neb Ud) 2.5 mg HHN Q6H PRN PRN Reason: Shortness of Breath Stop: 05/19/17 22:01 Benztropine Mesylate (Cogentin) 2 mg PO HS LUZMARIA Stop: 05/20/17 20:59 Last Admin: 03/21/17 22:16 Dose: 2 mg Folic Acid (Folate) 1 mg PO DAILY LUZMARIA Stop: 05/21/17 08:59 Last Admin: 03/22/17 08:26 Dose: 1 mg Gabapentin (Neurontin) 300 mg PO TID LUZMARIA Stop: 05/20/17 13:59 Last Admin: 03/22/17 08:26 Dose: 300 mg Haloperidol (Haldol) 10 mg PO BID LUZMARIA Stop: 05/20/17 08:59 Last Admin: 03/22/17 16:25 Dose: 10 mg Dextrose/Sodium Chloride (D5-0.9%Ns) 1,000 mls @ 100 mls/hr IV .Q10H LUZMARIA Stop: 05/19/17 22:14 Last Admin: 03/22/17 08:27 Dose: 100 mls/hr Ipratropium [place] (Atrovent Neb 0.5mg/2.5ml) 0.5 mg HHN Q6H PRN PRN Reason: Shortness of Breath Stop: 05/19/17 22:01 [place] Carbonate (Eskalith) 300 mg PO HS LUZMARIA PRN Reason: Protocol Stop: 05/20/17 20:59 Last Admin: 03/21/17 22:16 Dose: 300 mg Lorazepam (Ativan) 1 mg IVP Q4H PRN; Protocol PRN Reason: Anxiety/Agitation Stop: 05/19/17 22:01 Magnesium Hydroxide (Milk Of Magnesia) 30 ml PO HS PRN PRN Reason: Constipation Stop: 05/19/17 22:01 Miscellaneous (Clinical Monitoring) 1 ea MC DAILY PRN PRN Reason: RENAL Stop: 05/20/17 07:28 Ondansetron HCl (Zofran Odt) 4 mg PO Q6H PRN PRN Reason: Nausea / Vomiting Stop: 05/19/17 22:01 Thiamine HCl (Vitamin B1) 100 mg PO DAILY LUZMARIA Stop: 05/21/17 08:59 Last Admin: 03/22/17 08:26 Dose: 100 mg Trazodone HCl (Desyrel) 50 mg PO HS LUZMARIA PRN Reason: Protocol Stop: 05/20/17 20:59 Last Admin: 03/21/17 22:16 Dose: 50 mg Na up to 147 BUN/CR improved to 23/1.4 started to eat & continue ivf encouraged increase po intake f/u electrolytes will need Gray cath until seen by urology underwent I/D of perirectal abscess switch ivf to D5 1/2 NS due to increase in Na level Nutritional Asmnt/Malnutr-PDOC - Dietary Evaluation Malnutrition Findings (Please click <Entered> for more info): Nutritional Asmnt/Malnutrition Start: 03/25/17 15: 13 Text: Status: Complete Freq: Document 03/25/17 15:13 GSUN (Rec: 03/25/17 15:30 GSUN [id number]) Nutritional Asmnt/Malnutrition Patient General Information Nutritional Screening Moderate Risk Screening Diagnosis Acute kidney injury, dehydration Pertinent Medical Hx/Surgical Hx Asthma, schizophrenia Subjective Information 51 year old male. Pt noted with poor PO intake since adm 03/20. Pt was sitting in a chair next to bed during visit , RN in room. Pt was very fixated on his urine output and gray catheter, pt either remained silent or expressed concern about his urine output , limited interview due to this and likely hx psychosis. Pt stated he does have appetite with taste bud present, however did not elaborate further regarding poor PO. Obtained CBW via bedscale with bed properly calibrated and then pt lying down. Current Diet Order/ Nutrition Support Regular Pertinent Medications Maalox, D5 0.9%, Folate, Haldol, MOM, Zofran, Vitamin B1 Pertinent Labs 03/23: Sodium 127L, BUN 46H, creaitnine 2.2H, glucose 107H 03/25: Sodium 130L (improving), BUN 32H (improving), creatinine 1.7H (improving) glucose 165H Nutritional Hx/Data Height 1.83 m Height (Calculated Centimeters) 182.9 Current Weight (lbs) 75.432 kg Weight (Calculated Kilograms) 75.4 Weight (Calculated Grams) 99349.4 [place] Body Weight 178 Weight Status Approriate GI Symptoms Food Allergies No Skin Integrity/Comment: Ryan 15. Skin intact. Current %PO Poor (25-49%) Estimated Nutritional Goals BEE in Kcals: Using Current wt Calories/Kcals/Kg CBW 75.4kg Kcals Calculated 1885-2262kcal (25-30kcal/kg) Protein: Using Current wt Protein Calculated 45g (0.6g/kg, monitor renal, improving) Fluid: ml 1885-2262ml (1ml/kcal) Nutritional Problem 1. Problem Problem Inadequate oral food beverage intake related to Etiology likely cognition aeb Signs/Symptoms: pt fixated on urine output and does not want to eat at this time Intervention/Recommendation Comments 1. Continue with regular diet. Continue to monitor sodium level and renal labs. Recommend low sodium diet if approrpaite. 2. Encourage PO intake, closely monitor. Pt appeared fixated on urine output and does not want to eat. Pt reported good appetite. RD explained importance of nutrition, pt nodded. 3. Monitor weight, prevent weight loss. Expected Outcomes/Goals Expected Outcomes/Goals 1. PO intake to meet at least 75% of estimated nutritional needs. Physician Parameters for PEM Serum Albumin (g/dl) 3.1 - 3.4 (Mild)
--- NOTE | 2017-03-30 16:39 | Progress Notes ---
DATE: 03/29/2017 SUBJECTIVE: The patient is asleep. The patient is on IV antibiotics. The patient is on IV fluids. The patient received inpatient neb treatment. The patient underwent I and D of rectal abscess. PHYSICAL EXAMINATION: VITAL SIGNS: Temperature 100.5, pulse 89, respiratory rate 18, and O2 sat 97% on room air. CARDIOVASCULAR: S1 and S2. RESPIRATORY: Clear. GASTROINTESTINAL: Soft. Positive bowel sounds. LABORATORY DATA: Hematology: WBC is 15.1, hemoglobin 8.5, hematocrit 23.9, platelet count 209. No left shift noted. ESR 112. Chemistry: Sodium 142, potassium 3.7, chloride 112, bicarb 22, anion gap 11, BUN 23, creatinine 0.4. GFR is more than 60. Glucose 152, calcium 8.2. C-reactive protein 12.7. MICROBIOLOGY: MRSA screen from March 20 is positive. Blood cultures from March 27 shows gram positive cocci in clusters. Urine cultures from March 27 shows mixed urogenital sundeep. ASSESSMENT: 1. Sepsis. 2. Bacteremia secondary to gram positive cocci in clusters. 3. MRSA colonization. 4. Perirectal abscess. 5. Status post I and D of perirectal abscess. 6. Leukocytosis. 7. Anemia. 8. Acute kidney injury (improved). 9. Polysubstance dependence. 10. Paranoid schizophrenia. 11. Benign prostatic hyperplasia. 12. Bladder atony. 13. Hyperglycemia. 14. Hypercalcemia. PLAN: Continue current medication and treatment. Obtain labs in a.m. Await final culture results. Further recommendations per consultation. 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 JOB# [id number]
--- NOTE | 2017-03-30 17:32 | General Progress Note ---
Subjective - Review of Systems Service Date: 03/30/17 Events since last encounter: start hot sitz bath, removed iodorm gauze, do not replace Objective - Results Result Diagrams: 03/30/17 06:30 03/30/17 06:30 Recent Labs: Laboratory Last Values WBC 14.0 Th/cmm (4.8-10.8) H 03/30/17 06:30 RBC 2.94 Mil/cmm (4.30-5.70) L 03/30/17 06:30 Hgb 9.1 gm/dL (13.2-17.3) L 03/30/17 06:30 Hct 25.5 % (39.0-49.0) L 03/30/17 06:30 MCV 86.7 fl (80-99) 03/30/17 06:30 MCH 30.8 pg (26.0-30.0) H 03/30/17 06:30 MCHC Differential 35.5 pg (28.0-36.0) 03/30/17 06:30 RDW 12.9 % (11.5-20.0) 03/30/17 06:30 Plt Count 205 Th/cmm (150-400) 03/30/17 06:30 MPV 8.1 fl 03/30/17 06:30 Neutrophils % 56.0 % (40.0-80.0) 03/30/17 06:30 Band Neutrophils % 4 % (0-10) 03/29/17 05:15 Lymphocytes % 31.9 % (20.0-50.0) 03/30/17 06:30 Monocytes % 11.3 % (2.0-10.0) H 03/30/17 06:30 Eosinophils % 0.2 % (0.0-5.0) 03/30/17 06:30 Basophils % 0.6 % (0.0-2.0) 03/30/17 06:30 Neutrophils (Manual) 70 % (40-80) 03/29/17 05:15 Lymphocytes 20 % (20-50) 03/29/17 05:15 Monocytes 6 % (2-10) 03/29/17 05:15 Eosinophils 2 % (0-5) 03/26/17 06:41 Atypical Lymphocytes 3 % 03/28/17 06:55 Platelet Estimate ADEQUATE (NORMAL) 03/29/17 05:15 Platelet Morphology PLATELET CLUMPS SEEN (NORMAL) 03/29/17 05:15 Anisocytosis 1+ 03/29/17 05:15 RBC Morph Micro Appear ABNORMAL (NORMAL) 03/29/17 05:15 ESR 132 mm/hr (0-20) H 03/30/17 06:30 Eos Smear Source URINE 03/22/17 00:30 Eos Smear Total Cells NONE SEEN (NONE SEEN) 03/22/17 00:30 Sodium 147 mEq/L (136-145) H 03/30/17 06:30 Potassium 3.9 mEq/L (3.5-5.1) 03/30/17 06:30 Chloride 118 mEq/L (98-107) H 03/30/17 06:30 Carbon Dioxide 23.7 mEq/L (21.0-31.0) 03/30/17 06:30 Anion Gap 9.2 (7.0-16.0) 03/30/17 06:30 BUN 23 mg/dL (7-25) 03/30/17 06:30 Creatinine 1.4 mg/dL (0.7-1.3) H 03/30/17 06:30 Est GFR ( Amer) > 60.0 ml/min (>90) 03/30/17 06:30 Est GFR (Non-Af Amer) 57.0 ml/min 03/30/17 06:30 BUN/Creatinine Ratio 16.4 03/30/17 06:30 Glucose 145 mg/dL (70-105) H 03/30/17 06:30 Plasma/Ser Osmolality 279 mOsmol/kg (275-295) 03/22/17 00:30 Uric Acid 10.1 mg/dL (4.4-7.6) H 03/22/17 06:00 Calcium 8.3 mg/dL (8.6-10.3) L 03/30/17 06:30 Phosphorus 2.0 mg/dL (2.5-5.0) L 03/27/17 06:18 Magnesium 2.6 mg/dL (1.9-2.7) 03/26/17 06:41 Ferritin 5024 ng/mL (30-400) H 03/23/17 06:10 Total Bilirubin 0.4 mg/dL (0.3-1.0) 03/28/17 06:55 Direct Bilirubin 0.12 mg/dL (0.0-0.2) 03/24/17 05:00 AST 105 U/L (13-39) H 03/28/17 06:55 ALT 70 U/L (7-52) H 03/28/17 06:55 Alkaline Phosphatase 44 U/L (34-104) 03/28/17 06:55 Ammonia 28 umol/L (16-53) 03/29/17 20:39 Creatine Kinase 1985 U/L (30-223) H 03/30/17 06:30 CK-MB (CK-2) 12.6 ng/mL (0.6-6.3) H 03/30/17 06:30 Troponin I 0.24 ng/mL (0.01-0.05) H* 03/30/17 06:30 C-Reactive Protein 16.8 mg/dL (0.0-0.9) H 03/30/17 06:30 Total Protein 5.6 gm/dL (6.0-8.3) L 03/28/17 06:55 Albumin 2.4 gm/dL (4.2-5.5) L 03/28/17 06:55 Globulin 3.2 gm/dL 03/28/17 06:55 Albumin/Globulin Ratio 0.8 (1.0-1.8) L 03/28/17 06:55 Ceruloplasmin 36.4 mg/dL (16.0-31.0) H 03/23/17 06:10 Urine Source GRAY PORT 03/27/17 17:00 Urine Color YELLOW 03/27/17 17:00 Urine Clarity SLIGHT HAZY (CLEAR) 03/27/17 17:00 Urine pH 5.5 03/27/17 17:00 Ur Specific [place] 1.015 (1.005-1.030) 03/27/17 17:00 Urine Protein >300 mg/dL (NEGATIVE) H 03/27/17 17:00 Urine Glucose (UA) NEGATIVE mg/dL (NEGATIVE) 03/27/17 17:00 Urine Ketones NEGATIVE mg/dL (NEGATIVE) 03/27/17 17:00 Urine Blood MODERATE (NEGATIVE) H 03/27/17 17:00 Urine Nitrate NEGATIVE (NEGATIVE) 03/27/17 17:00 Urine Bilirubin NEGATIVE (NEGATIVE) 03/27/17 17:00 Urine Urobilinogen 0.2 E.U./dL (0.2 - 1.0) 03/27/17 17:00 Ur Leukocyte Esterase NEGATIVE (NEGATIVE) 03/27/17 17:00 Urine RBC 5-10 /hpf (0-5) H 03/27/17 17:00 Urine WBC 2-5 /hpf (0-5) H 03/27/17 17:00 Ur Epithelial Cells FEW /lpf (FEW) 03/27/17 17:00 Amorphous Sediment FEW URATES (NONE SEEN) 03/27/17 17:00 Urine Bacteria FEW /hpf (NONE SEEN) 03/27/17 17:00 Urine Osmolality 305 mOsmol/kg 03/22/17 00:30 Ur Random Sodium 12 mmol/L 03/22/17 00:30 Urine Creatinine 86.1 mg/dl (Not Estab.) 03/22/17 00:30 Urine Microalbumin 1521.4 ug/mL (Not Estab.) 03/22/17 00:30 Microalb/Creat Ratio 1767.0 mg/g creat (0.0-30.0) H 03/22/17 00:30 Urine Opiates Screen NEGATIVE (NEGATIVE) 03/22/17 00:30 Urine Methadone Screen NEGATIVE (NEGATIVE) 03/22/17 00:30 Ur Barbiturates Screen NEGATIVE (NEGATIVE) 03/22/17 00:30 Ur Tricyclics Screen NEGATIVE (NEGATIVE) 03/22/17 00:30 Ur Phencyclidine Scrn NEGATIVE (NEGATIVE) 03/22/17 00:30 Amphetamines Screen NEGATIVE (NEGATIVE) 03/22/17 00:30 U Methamphetamines Scrn NEGATIVE (NEGATIVE) 03/22/17 00:30 U Benzodiazepines Scrn NEGATIVE (NEGATIVE) 03/22/17 00:30 [place] 0.84 MEQ/L (0.50-1.00) 03/30/17 06:30 U Cocaine Metab Screen NEGATIVE (NEGATIVE) 03/22/17 00:30 U Cannabinoids Screen POSITIVE (NEGATIVE) H 03/22/17 00:30 Hepatitis A IgM Ab Negative (Negative) 03/23/17 06:10 Hep Bs Antigen Negative (Negative) 03/23/17 06:10 Hep B Core IgM Ab Negative (Negative) 03/23/17 06:10 Hepatitis C Antibody <0.1 s/co ratio (0.0-0.9) 03/23/17 06:10 - Physical Exam Vitals and I&O: Vital Signs Temp 98.0 F 03/30/17 12:00 Pulse 102 03/30/17 12:00 Resp 18 03/30/17 12:00 BP 149/88 03/30/17 12:00 Pulse Ox 98 03/30/17 12:00 Intake & Output 03/29/17 03/30/17 03/30/17 18:59 06:59 18:59 Intake Total 50 1300 1000 Output Total 1400 Balance 50 -100 1000 Intake: Intake, IV Amount 50 1100 1000 D5-0.9%Ns 1,000 ml @ 100 1000 1000 mls/hr IV .Q10H [facility] Rx#: [id number] Piperacillin Sodium/ 50 100 Tazobact 3.375 gm In Dextrose 5% 50 ml @ 100 mls/hr IV Q8H [facility] Rx#: [id number] Oral 200 Output: Urine 1400 Active Medications: Current Medications Acetaminophen (Tylenol) 650 mg PO Q6H PRN PRN Reason: Mild Pain/Headache/T above 101 Stop: 05/19/17 22:01 Last Admin: 03/30/17 08:43 Dose: 650 mg Acetaminophen/Hydrocodone Bitart ([place] 10 Mg/325 Mg) 1 tab PO Q4H PRN PRN Reason: Pain (Severe) Stop: 05/27/17 17:48 Last Admin: 03/29/17 17:13 Dose: 1 tab Acetaminophen/Hydrocodone Bitart ([place] 5mg/325mg) 1 tab PO Q4H PRN PRN Reason: Moderate Pain Stop: 05/27/17 17:48 Al Hydrox/Mg Hydrox/Simethicone (Maalox) 30 ml PO Q6H PRN PRN Reason: GI UPSET Stop: 05/19/17 22:01 Albuterol Sulfate (Albuterol 2.5mg/3ml Neb Ud) 2.5 mg HHN Q6H PRN PRN Reason: Shortness of Breath Stop: 05/19/17 22:01 Benztropine Mesylate (Cogentin) 2 mg PO HS [facility] Stop: 05/20/17 20:59 Last Admin: 03/29/17 21:35 Dose: 2 mg Folic Acid (Folate) 1 mg PO DAILY [facility] Stop: 05/21/17 08:59 Last Admin: 03/30/17 08:42 Dose: 1 mg Gabapentin (Neurontin) 400 mg PO TID [facility] Stop: 05/29/17 07:48 Last Admin: 03/30/17 13:41 Dose: 400 mg Haloperidol (Haldol) 10 mg PO BID [facility] Stop: 05/20/17 08:59 Last Admin: 03/30/17 17:08 Dose: 10 mg Piperacillin Sod/Tazobactam (Sod 3.375 gm/ Dextrose) 50 mls @ 100 mls/hr IV Q8H [facility] Stop: 05/28/17 12:59 Last Admin: 03/30/17 13:41 Dose: 100 mls/hr Dextrose/Sodium Chloride (D5-0.45ns) 1,000 mls @ 50 mls/hr IV .Q20H [facility] Stop: 05/29/17 14:01 Last Admin: 03/30/17 15:12 Dose: 50 mls/hr Ipratropium [place] (Atrovent Neb 0.5mg/2.5ml) 0.5 mg HHN Q6H PRN PRN Reason: Shortness of Breath Stop: 05/19/17 22:01 Lorazepam (Ativan) 1 mg IVP Q4H PRN; Protocol PRN Reason: Anxiety/Agitation Stop: 05/27/17 17:48 Last Admin: 03/30/17 11:07 Dose: 1 mg Magnesium Hydroxide (Milk Of Magnesia) 30 ml PO HS PRN PRN Reason: Constipation Stop: 05/19/17 22:01 Last Admin: 03/28/17 19:50 Dose: 30 ml Metronidazole (Flagyl) 500 mg PO BID [facility] Stop: 04/05/17 16:59 Last Admin: 03/30/17 17:08 Dose: 500 mg Miscellaneous (Clinical Monitoring) 1 ea MC DAILY PRN PRN Reason: RENAL Stop: 05/20/17 07:28 Morphine Sulfate (Morphine) 2 mg IVP Q4HR PRN PRN Reason: Pain (Moderate) Stop: 05/28/17 22:27 Last Admin: 03/30/17 15:05 Dose: 2 mg Ondansetron HCl (Zofran Odt) 4 mg PO Q6H PRN PRN Reason: Nausea / Vomiting Stop: 05/19/17 22:01 Thiamine HCl (Vitamin B1) 100 mg PO DAILY [facility] Stop: 05/21/17 08:59 Last Admin: 03/30/17 08:43 Dose: 100 mg Trazodone HCl (Desyrel) 50 mg PO HS [facility] PRN Reason: Protocol Stop: 05/20/17 20:59 Last Admin: 03/29/17 21:35 Dose: 50 mg Nutritional Asmnt/Malnutr-PDOC - Dietary Evaluation Malnutrition Findings (Please click <Entered> for more info): Nutritional Asmnt/Malnutrition Start: 03/25/17 15: 13 Text: Status: Complete Freq: Document 03/25/17 15:13 GSUN (Rec: 03/25/17 15:30 GSUN [id number]) Nutritional Asmnt/Malnutrition Patient General Information Nutritional Screening Moderate Risk Screening Diagnosis Acute kidney injury, dehydration Pertinent Medical Hx/Surgical Hx Asthma, schizophrenia Subjective Information 51 year old male. Pt noted with poor PO intake since adm 03/20. Pt was sitting in a chair next to bed during visit , RN in room. Pt was very fixated on his urine output and gray catheter, pt either remained silent or expressed concern about his urine output , limited interview due to this and likely hx psychosis. Pt stated he does have appetite with taste bud present, however did not elaborate further regarding poor PO. Obtained CBW via bedscale with bed properly calibrated and then pt lying down. Current Diet Order/ Nutrition Support Regular Pertinent Medications Maalox, D5 0.9%, Folate, Haldol, MOM, Zofran, Vitamin B1 Pertinent Labs 03/23: Sodium 127L, BUN 46H, creaitnine 2.2H, glucose 107H 03/25: Sodium 130L (improving), BUN 32H (improving), creatinine 1.7H (improving) glucose 165H Nutritional Hx/Data Height 1.83 m Height (Calculated Centimeters) 182.9 Current Weight (lbs) 75.432 kg Weight (Calculated Kilograms) 75.4 Weight (Calculated Grams) 01912.4 [place] Body Weight 178 Weight Status Approriate GI Symptoms Food Allergies No Skin Integrity/Comment: Ryan 15. Skin intact. Current %PO Poor (25-49%) Estimated Nutritional Goals BEE in Kcals: Using Current wt Calories/Kcals/Kg CBW 75.4kg Kcals Calculated 1885-2262kcal (25-30kcal/kg) Protein: Using Current wt Protein Calculated 45g (0.6g/kg, monitor renal, improving) Fluid: ml 1885-2262ml (1ml/kcal) Nutritional Problem 1. Problem Problem Inadequate oral food beverage intake related to Etiology likely cognition aeb Signs/Symptoms: pt fixated on urine output and does not want to eat at this time Intervention/Recommendation Comments 1. Continue with regular diet. Continue to monitor sodium level and renal labs. Recommend low sodium diet if approrpaite. 2. Encourage PO intake, closely monitor. Pt appeared fixated on urine output and does not want to eat. Pt reported good appetite. RD explained importance of nutrition, pt nodded. 3. Monitor weight, prevent weight loss. Expected Outcomes/Goals Expected Outcomes/Goals 1. PO intake to meet at least 75% of estimated nutritional needs. Physician Parameters for PEM Serum Albumin (g/dl) 3.1 - 3.4 (Mild)
[2017-03-30] MEDS: Hydrocodone/APAP 10 mg/325 mg Tab PO PRN (18:43)
[2017-03-30] MEDS: Benztropine 1 MG TAB PO SCH (21:02)
--- NOTE | 2017-03-30 23:58 | Consultation ---
DATE OF CONSULTATION: 03/29/2017 HISTORY OF PRESENT ILLNESS: The patient is a 51-year-old. Transferred from [place]. ____ admitted there with weakness with altered mentation. ____ renal failure, then transferred here. Here initially the staff tells me that he was able to say a few words. Apparently, the patient is in a facility. It is not clear whether he has some underlying cognitive impairment as when he was young. The patient's major ____ psychiatric problem is schizophrenia. The patient has been on a number of medications. Looking at his record, he has been on Haldol, ____, lithium, gabapentin, lorazepam. Here, the patient is not responding; he is lying in bed, somewhat rapid respirations. The patient's eyes are closed. He does not respond. The nurses told me sometimes he responded to his name and ____ most of time not. The patient is moving extremities, upper and lower. No seizures had been witnessed. PAST MEDICAL HISTORY: As above. The patient has history of drug abuse. Other history includes asthma. MEDICATIONS: Per reconciliation here. The patient is on lithium, lorazepam, thiamine, trazodone, hydrocodone, Haldol 10 b.i.d. SOCIAL HISTORY: Does not smoke or drink. REVIEW OF SYSTEMS: Not obtainable. PHYSICAL EXAMINATION: VITAL SIGNS: ____ 99.6, yesterday was 105, blood pressure 148/82, pulse is around about 119. NECK: Supple, no bruits. HEART: Sounds S1, S2. LUNGS: Clear. NEUROLOGIC: The patient is lying in bed. ____ he does not interact at all. Withdrawn. The patient's pupils react to light. No facial weakness. MOTOR: Somewhat increased tone, but not too bad. Moves both upper extremities lower extremity. Reflex about 1+. INVESTIGATIONS: I do not see a CT scan of the head. LABORATORY DATA: WBC 15.1, hemoglobin 8.5, ESR is as high as 112, BUN is now 23, creatinine 1.4, CRP is 12.7. Urine 2-5 ____. IMPRESSION: 1. Encephalopathy. 2. Underlying history of schizophrenia. 3. Polysubstance abuse. Unclear whether cognitive impairment. 4. Urinary tract infection. PLAN: CT scan of the head, labs ____ does not change ____ consider repeat. JOB# [id number]
[2017-03-31] MEDS: Morphine Sulfate 2 mg/mL 1mL Syr IVP PRN ×4 (00:13→20:55)
--- NOTE | 2017-03-31 02:16 | Progress Notes ---
DATE: 03/30/2017 SUBJECTIVE: Chart reviewed and the patient interviewed. Also discussed the patient's condition with the staff and reviewed records and labs. The patient still has periods of severe agitation and irritability. The patient also is in irritable and angry mood. The patient also has difficulty following directions and needs lots of redirections. The patient was trying to get off the bed earlier in spite of staff instruction to stay in bed. Also, personal hygiene is still poor. Otherwise, the patient continued to take Haldol in a dose of 10 mg twice a day and Neurontin in a dose of 300 mg 3 times a day with no side effects. ASSESSMENT: The patient is still agitated and psychotic. TREATMENT PLAN: The patient continued to take lithium and we will get lithium blood level. Also, we will increase Neurontin to 400 mg 3 times a day and we will continue to follow up. JOB# [id number]
--- NOTE | 2017-03-31 02:21 | Progress Notes ---
DATE: 03/30/2017 Case was discussed with staff of the patient, reviewed records. The patient had surgery yesterday. The patient continues to be somewhat confused recovering from surgery, however, he is not a great historian ____. He denies any current intent to harm himself or anybody. No auditory or visual hallucinations, no paranoia. He is compliant with the medication with no side effects, no sedation, no nausea. Thank you very much for allowing me to participate in the care of this most interesting gentleman. JOB# [id number]
--- NOTE | 2017-03-31 05:20 | Progress Notes ---
DATE: 03/30/2017 SUBJECTIVE: The patient is awake. The patient is confused. The patient is on IV fluids. The patient is on abx treatment. OBJECTIVE: VITAL SIGNS: Temperature 101.2, pulse 97, blood pressure per nursing, respiratory rate of 18, O2 sat 97% on room air. CARDIOVASCULAR: S1 and S2. RESPIRATORY: Clear. GASTROINTESTINAL: Soft. Positive bowel sounds. LABORATORY DATA: Hematology: WBC of 14.0, hemoglobin 9.1, hematocrit 25.5, platelet count of 205, 31% lymphocytes, 11% monocytes. ESR is 132. Chemistry: Sodium 147, potassium 3.9, chloride per labs, bicarbonate 23, anion gap 9.2, BUN 23, creatinine per labs. GFR is more than 60, glucose 145, calcium 8.3. Creatine kinase 1985. CK-MB is 12.6. Microbiology: MRSA screen from 03/20/2017, positive. Blood culture from 03/27/2017, so far showed no growth. Urine culture from 03/27/2017 shows mixed urogenital sundeep. ASSESSMENT: 1. Status post incision and drainage of left perirectal abscess. 2. Left perirectal abscess. 3. Sepsis. 4. Bacteremia secondary to gram-positive cocci. 5. Leukocytosis. 6. Anemia. 7. Acute kidney injury (improved). 9. Hyperglycemia. 10. Hypocalcemia. 11. Altered mental status. 12. MRSA colonization. 13. Polysubstance dependence. 14. Paranoid schizophrenia. 15. BPH. 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 17. History of epilepsy. PLAN: Continue current medication and treatment. Obtain labs in a.m. Await final culture results. Further recommendations per consultants. JOB# [id number] [facility]
[2017-03-31] MEDS: Hydrocodone/APAP 10 mg/325 mg Tab PO PRN ×3 (06:03→17:48)
[2017-03-31 07:24] LABS: ANION GAP 11.6 (7.0-16.0); BUN - UREA NITROGEN 24 mg/dL (7-25); CALCIUM SERUM 8.8 mg/dL (8.6-10.3); CARBON DIOXIDE 25.2 mEq/L (21.0-31.0); CHLORIDE 117 mEq/L (98-107); CREATININE - SERUM 1.5 mg/dL (0.7-1.3); GLUCOSE 123 mg/dL (70-105); POTASSIUM SERUM 3.8 mEq/L (3.5-5.1); SODIUM SERUM 150 mEq/L (136-145)
[2017-03-31 08:04] LABS: HEMATOCRIT 27.9 % (39.0-49.0); HEMOGLOBIN 9.5 gm/dL (13.2-17.3); MEAN CORPUSCULAR HEMOGLOBIN 29.3 pg (26.0-30.0); MEAN PLATELET VOLUME 9.4 fl; RED BLOOD COUNT 3.24 Mil/cmm (4.30-5.70); RED CELL DISTRIBUTION WIDTH 12.9 % (11.5-20.0)
[2017-03-31 08:23] LABS: PLATELET COUNT NOT ABLE TO PERFORM Th/cmm (150-400)
[2017-03-31 09:18] LABS: ANISOCYTOSIS 1+; BAND NEUTROPHILE 4 % (0-10); METAMYELOCYTE 1 % (0-0); NEUTROPHILS 56 % (40-80); PLATELET ESTIMATE ADEQUATE (NORMAL); TOTAL CELLS COUNTED 100
[2017-03-31 09:19] LABS: PLATELET MORPHOLOGY PLATELET CLUMPS SEEN (NORMAL)
[2017-03-31 12:15] LABS: FOLIC ACID 14.4 ng/mL (>3.0)
--- NOTE | 2017-03-31 17:44 | Infectious Disease Prog Note ---
Infectious Disease Subjective - Review of Systems Service Date: 03/31/17 Subjective: cc uti/rectal abscess wound cx e coli on zosyn flagyl ros no fever o/e vss confused pale no icterus abd sft ext npulse equal dx uti/recal abscess plan zosyn flagyl Infectious Disease Objective - Results Result Diagrams: 03/31/17 06:05 03/31/17 06:05 Recent Labs: Laboratory Last Values WBC 17.0 Th/cmm (4.8-10.8) H D 03/31/17 06:05 RBC 3.24 Mil/cmm (4.30-5.70) L 03/31/17 06:05 Hgb 9.5 gm/dL (13.2-17.3) L 03/31/17 06:05 Hct 27.9 % (39.0-49.0) L 03/31/17 06:05 MCV 86.0 fl (80-99) 03/31/17 06:05 MCH 29.3 pg (26.0-30.0) 03/31/17 06:05 MCHC Differential 34.0 pg (28.0-36.0) 03/31/17 06:05 RDW 12.9 % (11.5-20.0) 03/31/17 06:05 Plt Count NOT ABLE TO PERFORM Th/cmm (150-400) 03/31/17 06:05 MPV 9.4 fl 03/31/17 06:05 Neutrophils % 56.0 % (40.0-80.0) 03/30/17 06:30 Band Neutrophils % 4 % (0-10) 03/31/17 06:05 Lymphocytes % 31.9 % (20.0-50.0) 03/30/17 06:30 Monocytes % 11.3 % (2.0-10.0) H 03/30/17 06:30 Eosinophils % 0.2 % (0.0-5.0) 03/30/17 06:30 Basophils % 0.6 % (0.0-2.0) 03/30/17 06:30 Neutrophils (Manual) 56 % (40-80) 03/31/17 06:05 Lymphocytes 25 % (20-50) 03/31/17 06:05 Monocytes 13 % (2-10) H 03/31/17 06:05 Eosinophils 2 % (0-5) 03/26/17 06:41 Metamyelocytes 1 % (0-0) H 03/31/17 06:05 Atypical Lymphocytes 1 % 03/31/17 06:05 Platelet Estimate ADEQUATE (NORMAL) 03/31/17 06:05 Platelet Morphology PLATELET CLUMPS SEEN (NORMAL) 03/31/17 06:05 Anisocytosis 1+ 03/31/17 06:05 RBC Morph Micro Appear ABNORMAL (NORMAL) 03/31/17 06:05 ESR 132 mm/hr (0-20) H 03/30/17 06:30 Eos Smear Source URINE 03/22/17 00:30 Eos Smear Total Cells NONE SEEN (NONE SEEN) 03/22/17 00:30 Sodium 150 mEq/L (136-145) H 03/31/17 06:05 Potassium 3.8 mEq/L (3.5-5.1) 03/31/17 06:05 Chloride 117 mEq/L (98-107) H 03/31/17 06:05 Carbon Dioxide 25.2 mEq/L (21.0-31.0) 03/31/17 06:05 Anion Gap 11.6 (7.0-16.0) 03/31/17 06:05 BUN 24 mg/dL (7-25) 03/31/17 06:05 Creatinine 1.5 mg/dL (0.7-1.3) H 03/31/17 06:05 Est GFR ( Amer) > 60.0 ml/min (>90) 03/31/17 06:05 Est GFR (Non-Af Amer) 52.7 ml/min 03/31/17 06:05 BUN/Creatinine Ratio 16.0 03/31/17 06:05 Glucose 123 mg/dL (70-105) H 03/31/17 06:05 Plasma/Ser Osmolality 279 mOsmol/kg (275-295) 03/22/17 00:30 Uric Acid 10.1 mg/dL (4.4-7.6) H 03/22/17 06:00 Calcium 8.8 mg/dL (8.6-10.3) 03/31/17 06:05 Phosphorus 2.0 mg/dL (2.5-5.0) L 03/27/17 06:18 Magnesium 2.6 mg/dL (1.9-2.7) 03/26/17 06:41 Ferritin 5024 ng/mL (30-400) H 03/23/17 06:10 Total Bilirubin 0.4 mg/dL (0.3-1.0) 03/28/17 06:55 Direct Bilirubin 0.12 mg/dL (0.0-0.2) 03/24/17 05:00 AST 105 U/L (13-39) H 03/28/17 06:55 ALT 70 U/L (7-52) H 03/28/17 06:55 Alkaline Phosphatase 44 U/L (34-104) 03/28/17 06:55 Ammonia 28 umol/L (16-53) 03/29/17 20:39 Creatine Kinase 1985 U/L (30-223) H 03/30/17 06:30 CK-MB (CK-2) 12.6 ng/mL (0.6-6.3) H 03/30/17 06:30 Troponin I 0.24 ng/mL (0.01-0.05) H* 03/30/17 06:30 C-Reactive Protein 16.8 mg/dL (0.0-0.9) H 03/30/17 06:30 Total Protein 5.6 gm/dL (6.0-8.3) L 03/28/17 06:55 Albumin 2.4 gm/dL (4.2-5.5) L 03/28/17 06:55 Globulin 3.2 gm/dL 03/28/17 06:55 Albumin/Globulin Ratio 0.8 (1.0-1.8) L 03/28/17 06:55 Ceruloplasmin 36.4 mg/dL (16.0-31.0) H 03/23/17 06:10 Vitamin B12 1296 pg/mL (211-946) H 03/30/17 06:30 Folic Acid 14.4 ng/mL (>3.0) 03/30/17 06:30 Urine Source GRAY PORT 03/27/17 17:00 Urine Color YELLOW 03/27/17 17:00 Urine Clarity SLIGHT HAZY (CLEAR) 03/27/17 17:00 Urine pH 5.5 03/27/17 17:00 Ur Specific [place] 1.015 (1.005-1.030) 03/27/17 17:00 Urine Protein >300 mg/dL (NEGATIVE) H 03/27/17 17:00 Urine Glucose (UA) NEGATIVE mg/dL (NEGATIVE) 03/27/17 17:00 Urine Ketones NEGATIVE mg/dL (NEGATIVE) 03/27/17 17:00 Urine Blood MODERATE (NEGATIVE) H 03/27/17 17:00 Urine Nitrate NEGATIVE (NEGATIVE) 03/27/17 17:00 Urine Bilirubin NEGATIVE (NEGATIVE) 03/27/17 17:00 Urine Urobilinogen 0.2 E.U./dL (0.2 - 1.0) 03/27/17 17:00 Ur Leukocyte Esterase NEGATIVE (NEGATIVE) 03/27/17 17:00 Urine RBC 5-10 /hpf (0-5) H 03/27/17 17:00 Urine WBC 2-5 /hpf (0-5) H 03/27/17 17:00 Ur Epithelial Cells FEW /lpf (FEW) 03/27/17 17:00 Amorphous Sediment FEW URATES (NONE SEEN) 03/27/17 17:00 Urine Bacteria FEW /hpf (NONE SEEN) 03/27/17 17:00 Urine Osmolality 305 mOsmol/kg 03/22/17 00:30 Ur Random Sodium 12 mmol/L 03/22/17 00:30 Urine Creatinine 86.1 mg/dl (Not Estab.) 03/22/17 00:30 Urine Microalbumin 1521.4 ug/mL (Not Estab.) 03/22/17 00:30 Microalb/Creat Ratio 1767.0 mg/g creat (0.0-30.0) H 03/22/17 00:30 Urine Opiates Screen NEGATIVE (NEGATIVE) 03/22/17 00:30 Urine Methadone Screen NEGATIVE (NEGATIVE) 03/22/17 00:30 Ur Barbiturates Screen NEGATIVE (NEGATIVE) 03/22/17 00:30 Ur Tricyclics Screen NEGATIVE (NEGATIVE) 03/22/17 00:30 Ur Phencyclidine Scrn NEGATIVE (NEGATIVE) 03/22/17 00:30 Amphetamines Screen NEGATIVE (NEGATIVE) 03/22/17 00:30 U Methamphetamines Scrn NEGATIVE (NEGATIVE) 03/22/17 00:30 U Benzodiazepines Scrn NEGATIVE (NEGATIVE) 03/22/17 00:30 [place] 0.84 MEQ/L (0.50-1.00) 03/30/17 06:30 U Cocaine Metab Screen NEGATIVE (NEGATIVE) 03/22/17 00:30 U Cannabinoids Screen POSITIVE (NEGATIVE) H 03/22/17 00:30 Hepatitis A IgM Ab Negative (Negative) 03/23/17 06:10 Hep Bs Antigen Negative (Negative) 03/23/17 06:10 Hep B Core IgM Ab Negative (Negative) 03/23/17 06:10 Hepatitis C Antibody <0.1 s/co ratio (0.0-0.9) 03/23/17 06:10 - Physical Exam Vitals and I&O: Vital Signs Temp 98.2 F 03/31/17 04:00 Pulse 92 03/31/17 07:49 Resp 18 03/31/17 07:50 BP 154/84 03/31/17 04:00 Pulse Ox 97 03/31/17 07:49 Intake & Output 03/30/17 03/31/17 03/31/17 18:59 06:59 18:59 Intake Total 1050 200 Output Total 1600 Balance 1050 -1400 Intake: Intake, IV Amount 1050 100 D5-0.9%Ns 1,000 ml @ 100 1000 mls/hr IV .Q10H LUZMARIA Rx#: [id number] Piperacillin Sodium/ 50 100 Tazobact 3.375 gm In Dextrose 5% 50 ml @ 100 mls/hr IV Q8H LUZMARIA Rx#: [id number] Oral 100 Output: Urine 1600 Other: # Bowel Movements 1 Active Medications: Current Medications Acetaminophen (Tylenol) 650 mg PO Q6H PRN PRN Reason: Mild Pain/Headache/T above 101 Stop: 05/19/17 22:01 Last Admin: 03/30/17 08:43 Dose: 650 mg Acetaminophen/Hydrocodone Bitart ([place] 10 Mg/325 Mg) 1 tab PO Q4H PRN PRN Reason: Pain (Severe) Stop: 05/27/17 17:48 Last Admin: 03/31/17 11:58 Dose: 1 tab Acetaminophen/Hydrocodone Bitart ([place] 5mg/325mg) 1 tab PO Q4H PRN PRN Reason: Moderate Pain Stop: 05/27/17 17:48 Al Hydrox/Mg Hydrox/Simethicone (Maalox) 30 ml PO Q6H PRN PRN Reason: GI UPSET Stop: 05/19/17 22:01 Albuterol Sulfate (Albuterol 2.5mg/3ml Neb Ud) 2.5 mg HHN Q6H PRN PRN Reason: Shortness of Breath Stop: 05/19/17 22:01 Benztropine Mesylate (Cogentin) 2 mg PO HS LUZMARIA Stop: 05/20/17 20:59 Last Admin: 03/30/17 21:02 Dose: 2 mg Folic Acid (Folate) 1 mg PO DAILY LUZMARIA Stop: 05/21/17 08:59 Last Admin: 03/31/17 08:53 Dose: 1 mg Gabapentin (Neurontin) 400 mg PO TID [facility] Stop: 05/29/17 07:48 Last Admin: 03/31/17 13:08 Dose: 400 mg Haloperidol (Haldol) 10 mg PO BID [facility] Stop: 05/20/17 08:59 Last Admin: 03/31/17 17:29 Dose: 10 mg Piperacillin Sod/Tazobactam (Sod 3.375 gm/ Dextrose) 50 mls @ 100 mls/hr IV Q8H [facility] Stop: 05/28/17 12:59 Last Admin: 03/31/17 13:08 Dose: 100 mls/hr Dextrose/Sodium Chloride (D5-0.45ns) 1,000 mls @ 50 mls/hr IV .Q20H [facility] Stop: 05/29/17 14:01 Last Admin: 03/30/17 15:12 Dose: 50 mls/hr Ipratropium [place] (Atrovent Neb 0.5mg/2.5ml) 0.5 mg HHN Q6H PRN PRN Reason: Shortness of Breath Stop: 05/19/17 22:01 Lorazepam (Ativan) 1 mg IVP Q4H PRN; Protocol PRN Reason: Anxiety/Agitation Stop: 05/27/17 17:48 Last Admin: 03/31/17 15:25 Dose: 1 mg Magnesium Hydroxide (Milk Of Magnesia) 30 ml PO HS PRN PRN Reason: Constipation Stop: 05/19/17 22:01 Last Admin: 03/28/17 19:50 Dose: 30 ml Metronidazole (Flagyl) 500 mg PO BID [facility] Stop: 04/05/17 16:59 Last Admin: 03/31/17 17:30 Dose: 500 mg Miscellaneous (Clinical Monitoring) 1 ea MC DAILY PRN PRN Reason: RENAL Stop: 05/20/17 07:28 Morphine Sulfate (Morphine) 2 mg IVP Q4HR PRN PRN Reason: Pain (Moderate) Stop: 05/28/17 22:27 Last Admin: 03/31/17 16:18 Dose: 2 mg Ondansetron HCl (Zofran Odt) 4 mg PO Q6H PRN PRN Reason: Nausea / Vomiting Stop: 05/19/17 22:01 Thiamine HCl (Vitamin B1) 100 mg PO DAILY LUZMARIA Stop: 05/21/17 08:59 Last Admin: 03/31/17 08:53 Dose: 100 mg Trazodone HCl (Desyrel) 50 mg PO HS [facility]ZMARIA PRN Reason: Protocol Stop: 05/20/17 20:59 Last Admin: 03/30/17 21:02 Dose: 50 mg Nutritional Asmnt/Malnutr-PDOC - Dietary Evaluation Malnutrition Findings (Please click <Entered> for more info): Nutritional Asmnt/Malnutrition Start: 03/25/17 15: 13 Text: Status: Complete Freq: Document 03/25/17 15:13 GSUN (Rec: 03/25/17 15:30 GSUN [id number]) Nutritional Asmnt/Malnutrition Patient General Information Nutritional Screening Moderate Risk Screening Diagnosis Acute kidney injury, dehydration Pertinent Medical Hx/Surgical Hx Asthma, schizophrenia Subjective Information 51 year old male. Pt noted with poor PO intake since adm 03/20. Pt was sitting in a chair next to bed during visit , RN in room. Pt was very fixated on his urine output and gray catheter, pt either remained silent or expressed concern about his urine output , limited interview due to this and likely hx psychosis. Pt stated he does have appetite with taste bud present, however did not elaborate further regarding poor PO. Obtained CBW via bedscale with bed properly calibrated and then pt lying down. Current Diet Order/ Nutrition Support Regular Pertinent Medications Maalox, D5 0.9%, Folate, Haldol, MOM, Zofran, Vitamin B1 Pertinent Labs 03/23: Sodium 127L, BUN 46H, creaitnine 2.2H, glucose 107H 03/25: Sodium 130L (improving), BUN 32H (improving), creatinine 1.7H (improving) glucose 165H Nutritional Hx/Data Height 1.83 m Height (Calculated Centimeters) 182.9 Current Weight (lbs) 75.432 kg Weight (Calculated Kilograms) 75.4 Weight (Calculated Grams) 71226.4 [place] Body Weight 178 Weight Status Approriate GI Symptoms Food Allergies No Skin Integrity/Comment: Ryan 15. Skin intact. Current %PO Poor (25-49%) Estimated Nutritional Goals BEE in Kcals: Using Current wt Calories/Kcals/Kg CBW 75.4kg Kcals Calculated 1885-2262kcal (25-30kcal/kg) Protein: Using Current wt Protein Calculated 45g (0.6g/kg, monitor renal, improving) Fluid: ml 1885-2262ml (1ml/kcal) Nutritional Problem 1. Problem Problem Inadequate oral food beverage intake related to Etiology likely cognition aeb Signs/Symptoms: pt fixated on urine output and does not want to eat at this time Intervention/Recommendation Comments 1. Continue with regular diet. Continue to monitor sodium level and renal labs. Recommend low sodium diet if approrpaite. 2. Encourage PO intake, closely monitor. Pt appeared fixated on urine output and does not want to eat. Pt reported good appetite. RD explained importance of nutrition, pt nodded. 3. Monitor weight, prevent weight loss. Expected Outcomes/Goals Expected Outcomes/Goals 1. PO intake to meet at least 75% of estimated nutritional needs. Physician Parameters for PEM Serum Albumin (g/dl) 3.1 - 3.4 (Mild)
[2017-03-31] MEDS: Dextrose 5% 1,000 ML IV SCH (18:02)
--- NOTE | 2017-03-31 18:04 | General Progress Note ---
Subjective - Review of Systems Service Date: 03/31/17 Subjective: lying in bed, periods of agitation Objective - Results Result Diagrams: 03/31/17 06:05 03/31/17 06:05 Recent Labs: Laboratory Last Values WBC 17.0 Th/cmm (4.8-10.8) H D 03/31/17 06:05 RBC 3.24 Mil/cmm (4.30-5.70) L 03/31/17 06:05 Hgb 9.5 gm/dL (13.2-17.3) L 03/31/17 06:05 Hct 27.9 % (39.0-49.0) L 03/31/17 06:05 MCV 86.0 fl (80-99) 03/31/17 06:05 MCH 29.3 pg (26.0-30.0) 03/31/17 06:05 MCHC Differential 34.0 pg (28.0-36.0) 03/31/17 06:05 RDW 12.9 % (11.5-20.0) 03/31/17 06:05 Plt Count NOT ABLE TO PERFORM Th/cmm (150-400) 03/31/17 06:05 MPV 9.4 fl 03/31/17 06:05 Neutrophils % 56.0 % (40.0-80.0) 03/30/17 06:30 Band Neutrophils % 4 % (0-10) 03/31/17 06:05 Lymphocytes % 31.9 % (20.0-50.0) 03/30/17 06:30 Monocytes % 11.3 % (2.0-10.0) H 03/30/17 06:30 Eosinophils % 0.2 % (0.0-5.0) 03/30/17 06:30 Basophils % 0.6 % (0.0-2.0) 03/30/17 06:30 Neutrophils (Manual) 56 % (40-80) 03/31/17 06:05 Lymphocytes 25 % (20-50) 03/31/17 06:05 Monocytes 13 % (2-10) H 03/31/17 06:05 Eosinophils 2 % (0-5) 03/26/17 06:41 Metamyelocytes 1 % (0-0) H 03/31/17 06:05 Atypical Lymphocytes 1 % 03/31/17 06:05 Platelet Estimate ADEQUATE (NORMAL) 03/31/17 06:05 Platelet Morphology PLATELET CLUMPS SEEN (NORMAL) 03/31/17 06:05 Anisocytosis 1+ 03/31/17 06:05 RBC Morph Micro Appear ABNORMAL (NORMAL) 03/31/17 06:05 ESR 132 mm/hr (0-20) H 03/30/17 06:30 Eos Smear Source URINE 03/22/17 00:30 Eos Smear Total Cells NONE SEEN (NONE SEEN) 03/22/17 00:30 Sodium 150 mEq/L (136-145) H 03/31/17 06:05 Potassium 3.8 mEq/L (3.5-5.1) 03/31/17 06:05 Chloride 117 mEq/L (98-107) H 03/31/17 06:05 Carbon Dioxide 25.2 mEq/L (21.0-31.0) 03/31/17 06:05 Anion Gap 11.6 (7.0-16.0) 03/31/17 06:05 BUN 24 mg/dL (7-25) 03/31/17 06:05 Creatinine 1.5 mg/dL (0.7-1.3) H 03/31/17 06:05 Est GFR ( Amer) > 60.0 ml/min (>90) 03/31/17 06:05 Est GFR (Non-Af Amer) 52.7 ml/min 03/31/17 06:05 BUN/Creatinine Ratio 16.0 03/31/17 06:05 Glucose 123 mg/dL (70-105) H 03/31/17 06:05 Plasma/Ser Osmolality 279 mOsmol/kg (275-295) 03/22/17 00:30 Uric Acid 10.1 mg/dL (4.4-7.6) H 03/22/17 06:00 Calcium 8.8 mg/dL (8.6-10.3) 03/31/17 06:05 Phosphorus 2.0 mg/dL (2.5-5.0) L 03/27/17 06:18 Magnesium 2.6 mg/dL (1.9-2.7) 03/26/17 06:41 Ferritin 5024 ng/mL (30-400) H 03/23/17 06:10 Total Bilirubin 0.4 mg/dL (0.3-1.0) 03/28/17 06:55 Direct Bilirubin 0.12 mg/dL (0.0-0.2) 03/24/17 05:00 AST 105 U/L (13-39) H 03/28/17 06:55 ALT 70 U/L (7-52) H 03/28/17 06:55 Alkaline Phosphatase 44 U/L (34-104) 03/28/17 06:55 Ammonia 28 umol/L (16-53) 03/29/17 20:39 Creatine Kinase 1985 U/L (30-223) H 03/30/17 06:30 CK-MB (CK-2) 12.6 ng/mL (0.6-6.3) H 03/30/17 06:30 Troponin I 0.24 ng/mL (0.01-0.05) H* 03/30/17 06:30 C-Reactive Protein 16.8 mg/dL (0.0-0.9) H 03/30/17 06:30 Total Protein 5.6 gm/dL (6.0-8.3) L 03/28/17 06:55 Albumin 2.4 gm/dL (4.2-5.5) L 03/28/17 06:55 Globulin 3.2 gm/dL 03/28/17 06:55 Albumin/Globulin Ratio 0.8 (1.0-1.8) L 03/28/17 06:55 Ceruloplasmin 36.4 mg/dL (16.0-31.0) H 03/23/17 06:10 Vitamin B12 1296 pg/mL (211-946) H 03/30/17 06:30 Folic Acid 14.4 ng/mL (>3.0) 03/30/17 06:30 Urine Source GRAY [place] 03/27/17 17:00 Urine Color YELLOW 03/27/17 17:00 Urine Clarity SLIGHT HAZY (CLEAR) 03/27/17 17:00 Urine pH 5.5 03/27/17 17:00 Ur Specific [place] 1.015 (1.005-1.030) 03/27/17 17:00 Urine Protein >300 mg/dL (NEGATIVE) H 03/27/17 17:00 Urine Glucose (UA) NEGATIVE mg/dL (NEGATIVE) 03/27/17 17:00 Urine Ketones NEGATIVE mg/dL (NEGATIVE) 03/27/17 17:00 Urine Blood MODERATE (NEGATIVE) H 03/27/17 17:00 Urine Nitrate NEGATIVE (NEGATIVE) 03/27/17 17:00 Urine Bilirubin NEGATIVE (NEGATIVE) 03/27/17 17:00 Urine Urobilinogen 0.2 E.U./dL (0.2 - 1.0) 03/27/17 17:00 Ur Leukocyte Esterase NEGATIVE (NEGATIVE) 03/27/17 17:00 Urine RBC 5-10 /hpf (0-5) H 03/27/17 17:00 Urine WBC 2-5 /hpf (0-5) H 03/27/17 17:00 Ur Epithelial Cells FEW /lpf (FEW) 03/27/17 17:00 Amorphous Sediment FEW URATES (NONE SEEN) 03/27/17 17:00 Urine Bacteria FEW /hpf (NONE SEEN) 03/27/17 17:00 Urine Osmolality 305 mOsmol/kg 03/22/17 00:30 Ur Random Sodium 12 mmol/L 03/22/17 00:30 Urine Creatinine 86.1 mg/dl (Not Estab.) 03/22/17 00:30 Urine Microalbumin 1521.4 ug/mL (Not Estab.) 03/22/17 00:30 Microalb/Creat Ratio 1767.0 mg/g creat (0.0-30.0) H 03/22/17 00:30 Urine Opiates Screen NEGATIVE (NEGATIVE) 03/22/17 00:30 Urine Methadone Screen NEGATIVE (NEGATIVE) 03/22/17 00:30 Ur Barbiturates Screen NEGATIVE (NEGATIVE) 03/22/17 00:30 Ur Tricyclics Screen NEGATIVE (NEGATIVE) 03/22/17 00:30 Ur Phencyclidine Scrn NEGATIVE (NEGATIVE) 03/22/17 00:30 Amphetamines Screen NEGATIVE (NEGATIVE) 03/22/17 00:30 U Methamphetamines Scrn NEGATIVE (NEGATIVE) 03/22/17 00:30 U Benzodiazepines Scrn NEGATIVE (NEGATIVE) 03/22/17 00:30 [place] 0.84 MEQ/L (0.50-1.00) 03/30/17 06:30 U Cocaine Metab Screen NEGATIVE (NEGATIVE) 03/22/17 00:30 U Cannabinoids Screen POSITIVE (NEGATIVE) H 03/22/17 00:30 Hepatitis A IgM Ab Negative (Negative) 03/23/17 06:10 Hep Bs Antigen Negative (Negative) 03/23/17 06:10 Hep B Core IgM Ab Negative (Negative) 03/23/17 06:10 Hepatitis C Antibody <0.1 s/co ratio (0.0-0.9) 03/23/17 06:10 - Physical Exam Vitals and I&O: Vital Signs Temp 98.2 F 03/31/17 04:00 Pulse 92 03/31/17 07:49 Resp 18 03/31/17 07:50 BP 154/84 03/31/17 04:00 Pulse Ox 97 03/31/17 07:49 Intake & Output 03/30/17 03/31/17 03/31/17 18:59 06:59 18:59 Intake Total 1050 200 Output Total 1600 Balance 1050 -1400 Intake: Intake, IV Amount 1050 100 D5-0.9%Ns 1,000 ml @ 100 1000 mls/hr IV .Q10H LUZMARIA Rx#: [id number] Piperacillin Sodium/ 50 100 Tazobact 3.375 gm In Dextrose 5% 50 ml @ 100 mls/hr IV Q8H LUZMARIA Rx#: [id number] Oral 100 Output: Urine 1600 Other: # Bowel Movements 1 Active Medications: Current Medications Acetaminophen (Tylenol) 650 mg PO Q6H PRN PRN Reason: Mild Pain/Headache/T above 101 Stop: 05/19/17 22:01 Last Admin: 03/30/17 08:43 Dose: 650 mg Acetaminophen/Hydrocodone Bitart ([place] 10 Mg/325 Mg) 1 tab PO Q4H PRN PRN Reason: Pain (Severe) Stop: 05/27/17 17:48 Last Admin: 03/31/17 17:48 Dose: 1 tab Acetaminophen/Hydrocodone Bitart ([place] 5mg/325mg) 1 tab PO Q4H PRN PRN Reason: Moderate Pain Stop: 05/27/17 17:48 Al Hydrox/Mg Hydrox/Simethicone (Maalox) 30 ml PO Q6H PRN PRN Reason: GI UPSET Stop: 05/19/17 22:01 Albuterol Sulfate (Albuterol 2.5mg/3ml Neb Ud) 2.5 mg HHN Q6H PRN PRN Reason: Shortness of Breath Stop: 05/19/17 22:01 Benztropine Mesylate (Cogentin) 2 mg PO HS [facility] Stop: 05/20/17 20:59 Last Admin: 03/30/17 21:02 Dose: 2 mg Clonidine HCl (Catapres) 0.1 mg PO Q6HR PRN PRN Reason: SBP ABOVE 160 Stop: 05/30/17 17:51 Folic Acid (Folate) 1 mg PO DAILY [facility] Stop: 05/21/17 08:59 Last Admin: 03/31/17 08:53 Dose: 1 mg Gabapentin (Neurontin) 400 mg PO TID [facility] Stop: 05/29/17 07:48 Last Admin: 03/31/17 13:08 Dose: 400 mg Haloperidol (Haldol) 10 mg PO BID [facility] Stop: 05/20/17 08:59 Last Admin: 03/31/17 17:29 Dose: 10 mg Piperacillin Sod/Tazobactam (Sod 3.375 gm/ Dextrose) 50 mls @ 100 mls/hr IV Q8H [facility] Stop: 05/28/17 12:59 Last Admin: 03/31/17 13:08 Dose: 100 mls/hr Dextrose (D5w) 1,000 mls @ 100 mls/hr IV .Q10H [facility] Stop: 05/30/17 17:44 Ipratropium [place] (Atrovent Neb 0.5mg/2.5ml) 0.5 mg HHN Q6H PRN PRN Reason: Shortness of Breath Stop: 05/19/17 22:01 Lorazepam (Ativan) 1 mg IVP Q4H PRN; Protocol PRN Reason: Anxiety/Agitation Stop: 05/27/17 17:48 Last Admin: 03/31/17 15:25 Dose: 1 mg Magnesium Hydroxide (Milk Of Magnesia) 30 ml PO HS PRN PRN Reason: Constipation Stop: 05/19/17 22:01 Last Admin: 03/28/17 19:50 Dose: 30 ml Metronidazole (Flagyl) 500 mg PO BID [facility] Stop: 04/05/17 16:59 Last Admin: 03/31/17 17:30 Dose: 500 mg Miscellaneous (Clinical Monitoring) 1 ea MC DAILY PRN PRN Reason: RENAL Stop: 05/20/17 07:28 Morphine Sulfate (Morphine) 2 mg IVP Q4HR PRN PRN Reason: Pain (Moderate) Stop: 05/28/17 22:27 Last Admin: 03/31/17 16:18 Dose: 2 mg Ondansetron HCl (Zofran Odt) 4 mg PO Q6H PRN PRN Reason: Nausea / Vomiting Stop: 05/19/17 22:01 Thiamine HCl (Vitamin B1) 100 mg PO DAILY [facility] Stop: 05/21/17 08:59 Last Admin: 03/31/17 08:53 Dose: 100 mg Trazodone HCl (Desyrel) 50 mg PO HS [facility]MARIA PRN Reason: Protocol Stop: 05/20/17 20:59 Last Admin: 03/30/17 21:02 Dose: 50 mg General: Alert, Moderate distress HEENT: Atraumatic, Mucous membr. moist/pink Neck: Supple, +2 carotid pulse wo bruit Cardiovascular: Regular rate, Normal S1, Normal S2 Lungs: Clear to auscultation Abdomen: Bowel sounds, Soft Extremities: no Edema Neurological: Sensation intact Skin: no Rash Assessment/Plan - Assessment Assessment: ERICA on CKD Hypernatremia watery diarrhea possible acute gastroenteritis, C. Diff Gen. 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, illegal drugs) outlet obstruction 2/2 BPH Perirectal abscess s/p I/D - Plan Plan: Lab - Result Diagrams 03/22/17 06:00 03/22/17 06:00 Current Medications Acetaminophen (Tylenol) 650 mg PO Q6H PRN PRN Reason: Mild Pain/Headache/T above 101 Stop: 05/19/17 22:01 Last Admin: 03/21/17 22:17 Dose: 650 mg Acetaminophen/Hydrocodone Bitart ([place] 10 Mg/325 Mg) 1 tab PO Q6H PRN PRN Reason: Severe Pain Stop: 05/19/17 22:01 Last Admin: 03/21/17 18:37 Dose: 1 tab Acetaminophen/Hydrocodone Bitart ([place] 5mg/325mg) 1 tab PO Q6H PRN PRN Reason: Moderate Pain Stop: 05/19/17 22:01 Al Hydrox/Mg Hydrox/Simethicone (Maalox) 30 ml PO Q6H PRN PRN Reason: Constipation Stop: 05/19/17 22:01 Albuterol Sulfate (Albuterol 2.5mg/3ml Neb Ud) 2.5 mg HHN Q6H PRN PRN Reason: Shortness of Breath Stop: 05/19/17 22:01 Benztropine Mesylate (Cogentin) 2 mg PO HS [facility] Stop: 05/20/17 20:59 Last Admin: 03/21/17 22:16 Dose: 2 mg Folic Acid (Folate) 1 mg PO DAILY [facility] Stop: 05/21/17 08:59 Last Admin: 03/22/17 08:26 Dose: 1 mg Gabapentin (Neurontin) 300 mg PO TID [facility] Stop: 05/20/17 13:59 Last Admin: 03/22/17 08:26 Dose: 300 mg Haloperidol (Haldol) 10 mg PO BID [facility] Stop: 05/20/17 08:59 Last Admin: 03/22/17 16:25 Dose: 10 mg Dextrose/Sodium Chloride (D5-0.9%Ns) 1,000 mls @ 100 mls/hr IV .Q10H [facility]ZMARIA Stop: 05/19/17 22:14 Last Admin: 03/22/17 08:27 Dose: 100 mls/hr Ipratropium [place] (Atrovent Neb 0.5mg/2.5ml) 0.5 mg HHN Q6H PRN PRN Reason: Shortness of Breath Stop: 05/19/17 22:01 [place] Carbonate ([place]skal[place]) 300 mg PO HS LUZMARIA PRN Reason: Protocol Stop: 05/20/17 20:59 Last Admin: 03/21/17 22:16 Dose: 300 mg Lorazepam (Ativan) 1 mg IVP Q4H PRN; Protocol PRN Reason: Anxiety/Agitation Stop: 05/19/17 22:01 Magnesium Hydroxide (Milk Of Magnesia) 30 ml PO HS PRN PRN Reason: Constipation Stop: 05/19/17 22:01 Miscellaneous (Clinical Monitoring) 1 ea MC DAILY PRN PRN Reason: RENAL Stop: 05/20/17 07:28 Ondansetron HCl (Zofran Odt) 4 mg PO Q6H PRN PRN Reason: Nausea / Vomiting Stop: 05/19/17 22:01 Thiamine HCl (Vitamin B1) 100 mg PO DAILY [facility]MARIA Stop: 05/21/17 08:59 Last Admin: 03/22/17 08:26 Dose: 100 mg Trazodone HCl (Desyrel) 50 mg PO HS [facility]MARIA PRN Reason: Protocol Stop: 05/20/17 20:59 Last Admin: 03/21/17 22:16 Dose: 50 mg Na up to 150 BUN/CR improved to 24/1.5 started to eat & continue ivf encouraged increase po intake f/u electrolytes will need Gray cath until seen by urology underwent I/D of perirectal abscess switch ivf to D5 1/2 NS due to increase in Na level Nutritional Asmnt/Malnutr-PDOC - Dietary Evaluation Malnutrition Findings (Please click <Entered> for more info): Nutritional Asmnt/Malnutrition Start: 03/25/17 15: 13 Text: Status: Complete Freq: Document 03/25/17 15:13 GSUN (Rec: 03/25/17 15:30 GSUN [id number]) Nutritional Asmnt/Malnutrition Patient General Information Nutritional Screening Moderate Risk Screening Diagnosis Acute kidney injury, dehydration Pertinent Medical Hx/Surgical Hx Asthma, schizophrenia Subjective Information 51 year old male. Pt noted with poor PO intake since adm 03/20. Pt was sitting in a chair next to bed during visit , RN in room. Pt was very fixated on his urine output and gray catheter, pt either remained silent or expressed concern about his urine output , limited interview due to this and likely hx psychosis. Pt stated he does have appetite with taste bud present, however did not elaborate further regarding poor PO. Obtained CBW via bedscale with bed properly calibrated and then pt lying down. Current Diet Order/ Nutrition Support Regular Pertinent Medications Maalox, D5 0.9%, Folate, Haldol, MOM, Zofran, Vitamin B1 Pertinent Labs 03/23: Sodium 127L, BUN 46H, creaitnine 2.2H, glucose 107H 03/25: Sodium 130L (improving), BUN 32H (improving), creatinine 1.7H (improving) glucose 165H Nutritional Hx/Data Height 1.83 m Height (Calculated Centimeters) 182.9 Current Weight (lbs) 75.432 kg Weight (Calculated Kilograms) 75.4 Weight (Calculated Grams) 83085.4 [place] Body Weight 178 Weight Status Approriate GI Symptoms Food Allergies No Skin Integrity/Comment: Ryan 15. Skin intact. Current %PO Poor (25-49%) Estimated Nutritional Goals BEE in Kcals: Using Current wt Calories/Kcals/Kg CBW 75.4kg Kcals Calculated 1885-2262kcal (25-30kcal/kg) Protein: Using Current wt Protein Calculated 45g (0.6g/kg, monitor renal, improving) Fluid: ml 1885-2262ml (1ml/kcal) Nutritional Problem 1. Problem Problem Inadequate oral food beverage intake related to Etiology likely cognition aeb Signs/Symptoms: pt fixated on urine output and does not want to eat at this time Intervention/Recommendation Comments 1. Continue with regular diet. Continue to monitor sodium level and renal labs. Recommend low sodium diet if approrpaite. 2. Encourage PO intake, closely monitor. Pt appeared fixated on urine output and does not want to eat. Pt reported good appetite. RD explained importance of nutrition, pt nodded. 3. Monitor weight, prevent weight loss. Expected Outcomes/Goals Expected Outcomes/Goals 1. PO intake to meet at least 75% of estimated nutritional needs. Physician Parameters for PEM Serum Albumin (g/dl) 3.1 - 3.4 (Mild)
[2017-03-31] MEDS: Benztropine 1 MG TAB PO SCH (20:36)
[2017-04-01] MEDS: Morphine Sulfate 2 mg/mL 1mL Syr IVP PRN ×3 (02:48→20:29)
[2017-04-01] MEDS: Dextrose 5% 1,000 ML IV SCH (05:12)
--- NOTE | 2017-04-01 05:12 | Progress Notes ---
DATE: 03/31/2017 Case discussed with staff of the patient, reviewed records. I talked to his mother who happens to be there. She reports he has not been eating for days before he was brought to the hospital, was found unresponsive. She also reported that she talked to the kidney doctors and he will not need dialysis. I did take him off lithium yesterday because of his kidney situation and so far, he continues to be on Haldol and Neurontin with no side effects. He is still unable to walk and talk. The patient needs followup with the psychiatrist upon discharge. Thank you very much for allowing me to participate in the care of this most interesting gentleman. JOB# [id number]
[2017-04-01 06:18] LABS: % BASOPHILS 0.8 % (0.0-2.0); % EOSINOPHILS 0.3 % (0.0-5.0); % LYMPHOCYTES 41.9 % (20.0-50.0); % MONOCYTES 10.5 % (2.0-10.0); % NEUTROPHILS 46.5 % (40.0-80.0); HEMATOCRIT 26.4 % (39.0-49.0); HEMOGLOBIN 9.3 gm/dL (13.2-17.3); MEAN CELL VOLUME 89.3 fl (80-99); MEAN CORPUSCULAR HEMOGLOBIN 31.5 pg (26.0-30.0); MEAN CORPUSCULAR HGB CONC 35.3 pg (28.0-36.0); MEAN PLATELET VOLUME 7.7 fl; NEUTROPHILE ABSOLUTE 5.4 Th/cmm (1.8-8.0); RED BLOOD COUNT 2.95 Mil/cmm (4.30-5.70); RED CELL DISTRIBUTION WIDTH 13.1 % (11.5-20.0)
[2017-04-01 06:25] LABS: PLATELET COUNT 156 Th/cmm (150-400); WHITE BLOOD COUNT 11.5 Th/cmm (4.8-10.8)
[2017-04-01 06:28] LABS: ALB/GLOB RATIO 0.6 (1.0-1.8); ANION GAP 7.7 (7.0-16.0); BILIRUBIN,DIRECT 0.43 mg/dL (0.0-0.2); BILIRUBIN,TOTAL 0.8 mg/dL (0.3-1.0); BUN/CREATININE RATIO 15.6; CALCIUM SERUM 8.9 mg/dL (8.6-10.3); CARBON DIOXIDE 27.1 mEq/L (21.0-31.0); CREATININE - SERUM 1.6 mg/dL (0.7-1.3); INR 1.16 (0.5-1.4); POTASSIUM SERUM 3.8 mEq/L (3.5-5.1); PROTHROMBIN TIME (TEST) 12.2 SECONDS (9.5-11.5)
[2017-04-01 06:36] LABS: TROP I 0.31 ng/mL (0.01-0.05)
[2017-04-01 06:48] LABS: CREATINE KINASE MB 13.1 ng/mL (0.6-6.3)
--- NOTE | 2017-04-01 09:10 | Diagnostic Imaging Report ---
CHEST X-RAY: AP view INDICATION: Cough, preop COMPARISON: None FINDINGS: Mild chronic lung changes are noted.. Heart size is at the upper limits of normal. No patient is rotated. No focal consolidation or pleural effusions. Osseous structures are intact. IMPRESSION: No focal airspace consolidation identified.
--- NOTE | 2017-04-01 13:54 | General Progress Note ---
Subjective - Review of Systems Service Date: 04/01/17 Subjective: lying in bed, periods of agitation Objective - Results Result Diagrams: 04/01/17 06:06 04/01/17 06:06 Recent Labs: Laboratory Last Values WBC 11.5 Th/cmm (4.8-10.8) H D 04/01/17 06:06 RBC 2.95 Mil/cmm (4.30-5.70) L 04/01/17 06:06 Hgb 9.3 gm/dL (13.2-17.3) L 04/01/17 06:06 Hct 26.4 % (39.0-49.0) L 04/01/17 06:06 MCV 89.3 fl (80-99) 04/01/17 06:06 MCH 31.5 pg (26.0-30.0) H 04/01/17 06:06 MCHC Differential 35.3 pg (28.0-36.0) 04/01/17 06:06 RDW 13.1 % (11.5-20.0) 04/01/17 06:06 Plt Count 156 Th/cmm (150-400) D 04/01/17 06:06 MPV 7.7 fl 04/01/17 06:06 Neutrophils % 46.5 % (40.0-80.0) 04/01/17 06:06 Band Neutrophils % 4 % (0-10) 03/31/17 06:05 Lymphocytes % 41.9 % (20.0-50.0) 04/01/17 06:06 Monocytes % 10.5 % (2.0-10.0) H 04/01/17 06:06 Eosinophils % 0.3 % (0.0-5.0) 04/01/17 06:06 Basophils % 0.8 % (0.0-2.0) 04/01/17 06:06 Neutrophils (Manual) 56 % (40-80) 03/31/17 06:05 Lymphocytes 25 % (20-50) 03/31/17 06:05 Monocytes 13 % (2-10) H 03/31/17 06:05 Eosinophils 2 % (0-5) 03/26/17 06:41 Metamyelocytes 1 % (0-0) H 03/31/17 06:05 Atypical Lymphocytes 1 % 03/31/17 06:05 Platelet Estimate ADEQUATE (NORMAL) 03/31/17 06:05 Platelet Morphology PLATELET CLUMPS SEEN (NORMAL) 03/31/17 06:05 Anisocytosis 1+ 03/31/17 06:05 RBC Morph Micro Appear ABNORMAL (NORMAL) 03/31/17 06:05 ESR 110 mm/hr (0-20) H 04/01/17 06:06 Eos Smear Source URINE 03/22/17 00:30 Eos Smear Total Cells NONE SEEN (NONE SEEN) 03/22/17 00:30 PT 12.2 SECONDS (9.5-11.5) H 04/01/17 06:06 INR 1.16 (0.5-1.4) 04/01/17 06:06 PTT (Actin FS) 28.0 SECONDS (26.0-38.0) 04/01/17 06:06 Sodium 148 mEq/L (136-145) H 04/01/17 06:06 Potassium 3.8 mEq/L (3.5-5.1) 04/01/17 06:06 Chloride 117 mEq/L (98-107) H 04/01/17 06:06 Carbon Dioxide 27.1 mEq/L (21.0-31.0) 04/01/17 06:06 Anion Gap 7.7 (7.0-16.0) 04/01/17 06:06 BUN 25 mg/dL (7-25) 04/01/17 06:06 Creatinine 1.6 mg/dL (0.7-1.3) H 04/01/17 06:06 Est GFR ( Amer) 59.1 ml/min (>90) 04/01/17 06:06 Est GFR (Non-Af Amer) 48.9 ml/min 04/01/17 06:06 BUN/Creatinine Ratio 15.6 04/01/17 06:06 Glucose 148 mg/dL (70-105) H 04/01/17 06:06 POC Glucose 141 MG/DL (70 - 105) H 04/01/17 06:38 Plasma/Ser Osmolality 279 mOsmol/kg (275-295) 03/22/17 00:30 Uric Acid 10.1 mg/dL (4.4-7.6) H 03/22/17 06:00 Calcium 8.9 mg/dL (8.6-10.3) 04/01/17 06:06 Phosphorus 2.0 mg/dL (2.5-5.0) L 03/27/17 06:18 Magnesium 2.6 mg/dL (1.9-2.7) 03/26/17 06:41 Ferritin 5024 ng/mL (30-400) H 03/23/17 06:10 Total Bilirubin 0.8 mg/dL (0.3-1.0) 04/01/17 06:06 Direct Bilirubin 0.43 mg/dL (0.0-0.2) H 04/01/17 06:06 AST 178 U/L (13-39) H 04/01/17 06:06 ALT 109 U/L (7-52) H 04/01/17 06:06 Alkaline Phosphatase 608 U/L (34-104) H 04/01/17 06:06 Ammonia 28 umol/L (16-53) 03/29/17 20:39 Creatine Kinase 1871 U/L (30-223) H 04/01/17 06:06 CK-MB (CK-2) 13.1 ng/mL (0.6-6.3) H 04/01/17 06:06 Troponin I 0.31 ng/mL (0.01-0.05) H* D 04/01/17 06:06 C-Reactive Protein 16.8 mg/dL (0.0-0.9) H 03/30/17 06:30 Total Protein 6.8 gm/dL (6.0-8.3) 04/01/17 06:06 Albumin 2.5 gm/dL (4.2-5.5) L 04/01/17 06:06 Globulin 4.3 gm/dL 04/01/17 06:06 Albumin/Globulin Ratio 0.6 (1.0-1.8) L 04/01/17 06:06 Ceruloplasmin 36.4 mg/dL (16.0-31.0) H 03/23/17 06:10 Vitamin B12 1296 pg/mL (211-946) H 03/30/17 06:30 Folic Acid 14.4 ng/mL (>3.0) 03/30/17 06:30 Urine Source GRAY PORT 03/27/17 17:00 Urine Color YELLOW 03/27/17 17:00 Urine Clarity SLIGHT HAZY (CLEAR) 03/27/17 17:00 Urine pH 5.5 03/27/17 17:00 Ur Specific [place] 1.015 (1.005-1.030) 03/27/17 17:00 Urine Protein >300 mg/dL (NEGATIVE) H 03/27/17 17:00 Urine Glucose (UA) NEGATIVE mg/dL (NEGATIVE) 03/27/17 17:00 Urine Ketones NEGATIVE mg/dL (NEGATIVE) 03/27/17 17:00 Urine Blood MODERATE (NEGATIVE) H 03/27/17 17:00 Urine Nitrate NEGATIVE (NEGATIVE) 03/27/17 17:00 Urine Bilirubin NEGATIVE (NEGATIVE) 03/27/17 17:00 Urine Urobilinogen 0.2 E.U./dL (0.2 - 1.0) 03/27/17 17:00 Ur Leukocyte Esterase NEGATIVE (NEGATIVE) 03/27/17 17:00 Urine RBC 5-10 /hpf (0-5) H 03/27/17 17:00 Urine WBC 2-5 /hpf (0-5) H 03/27/17 17:00 Ur Epithelial Cells FEW /lpf (FEW) 03/27/17 17:00 Amorphous Sediment FEW URATES (NONE SEEN) 03/27/17 17:00 Urine Bacteria FEW /hpf (NONE SEEN) 03/27/17 17:00 Urine Osmolality 305 mOsmol/kg 03/22/17 00:30 Ur Random Sodium 12 mmol/L 03/22/17 00:30 Urine Creatinine 86.1 mg/dl (Not Estab.) 03/22/17 00:30 Urine Microalbumin 1521.4 ug/mL (Not Estab.) 03/22/17 00:30 Microalb/Creat Ratio 1767.0 mg/g creat (0.0-30.0) H 03/22/17 00:30 Urine Opiates Screen NEGATIVE (NEGATIVE) 03/22/17 00:30 Urine Methadone Screen NEGATIVE (NEGATIVE) 03/22/17 00:30 Ur Barbiturates Screen NEGATIVE (NEGATIVE) 03/22/17 00:30 Ur Tricyclics Screen NEGATIVE (NEGATIVE) 03/22/17 00:30 Ur Phencyclidine Scrn NEGATIVE (NEGATIVE) 03/22/17 00:30 Amphetamines Screen NEGATIVE (NEGATIVE) 03/22/17 00:30 U Methamphetamines Scrn NEGATIVE (NEGATIVE) 03/22/17 00:30 U Benzodiazepines Scrn NEGATIVE (NEGATIVE) 03/22/17 00:30 [place] 0.84 MEQ/L (0.50-1.00) 03/30/17 06:30 U Cocaine Metab Screen NEGATIVE (NEGATIVE) 03/22/17 00:30 U Cannabinoids Screen POSITIVE (NEGATIVE) H 03/22/17 00:30 Hepatitis A IgM Ab Negative (Negative) 03/23/17 06:10 Hep Bs Antigen Negative (Negative) 03/23/17 06:10 Hep B Core IgM Ab Negative (Negative) 03/23/17 06:10 Hepatitis C Antibody <0.1 s/co ratio (0.0-0.9) 03/23/17 06:10 - Physical Exam Vitals and I&O: Vital Signs Temp 99.2 F 04/01/17 08:00 Pulse 113 04/01/17 12:45 Resp 19 04/01/17 08:00 BP 141/76 04/01/17 08:00 Pulse Ox 96 04/01/17 08:00 Intake & Output 03/31/17 04/01/17 04/01/17 18:59 06:59 18:59 Intake Total 50 1100 Output Total 1400 Balance -1350 1100 Intake: Intake, IV Amount 50 1100 Dextrose 5% 1,000 ml @ 1000 100 mls/hr IV .Q10H [facility] Rx#:[id number] Piperacillin Sodium/ 50 100 Tazobact 3.375 gm In Dextrose 5% 50 ml @ 100 mls/hr IV Q8H [facility] Rx#: [id number] Output: Urine 1400 Active Medications: Current Medications Acetaminophen (Tylenol) 650 mg PO Q6H PRN PRN Reason: Mild Pain/Headache/T above 101 Stop: 05/19/17 22:01 Last Admin: 03/30/17 08:43 Dose: 650 mg Acetaminophen/Hydrocodone Bitart ([place] 10 Mg/325 Mg) 1 tab PO Q4H PRN PRN Reason: Pain (Severe) Stop: 05/27/17 17:48 Last Admin: 03/31/17 17:48 Dose: 1 tab Acetaminophen/Hydrocodone Bitart ([place] 5mg/325mg) 1 tab PO Q4H PRN PRN Reason: Moderate Pain Stop: 05/27/17 17:48 Al Hydrox/Mg Hydrox/Simethicone (Maalox) 30 ml PO Q6H PRN PRN Reason: GI UPSET Stop: 05/19/17 22:01 Albuterol Sulfate (Albuterol 2.5mg/3ml Neb Ud) 2.5 mg HHN Q6H PRN PRN Reason: Shortness of Breath Stop: 05/19/17 22:01 Benztropine Mesylate (Cogentin) 2 mg PO HS LUZMARIA Stop: 05/20/17 20:59 Last Admin: 03/31/17 20:36 Dose: 2 mg Clonidine HCl (Catapres) 0.1 mg PO Q6HR PRN PRN Reason: SBP ABOVE 160 Stop: 05/30/17 17:51 Last Admin: 04/01/17 12:45 Dose: 0.1 mg Folic Acid (Folate) 1 mg PO DAILY LUZMARIA Stop: 05/21/17 08:59 Last Admin: 04/01/17 10:00 Dose: Not Given Gabapentin (Neurontin) 400 mg PO TID LUZMARIA Stop: 05/29/17 07:48 Last Admin: 04/01/17 10:00 Dose: Not Given Haloperidol (Haldol) 10 mg PO BID LUZMARIA Stop: 05/20/17 08:59 Last Admin: 04/01/17 10:00 Dose: Not Given Piperacillin Sod/Tazobactam (Sod 3.375 gm/ Dextrose) 50 mls @ 100 mls/hr IV Q8H LUZMARIA Stop: 05/28/17 12:59 Last Admin: 04/01/17 12:46 Dose: 100 mls/hr Dextrose (D5w) 1,000 mls @ 100 mls/hr IV .Q10H LUZMARIA Stop: 05/30/17 17:44 Last Admin: 04/01/17 05:12 Dose: 100 mls/hr Ipratropium [place] (Atrovent Neb 0.5mg/2.5ml) 0.5 mg HHN Q6H PRN PRN Reason: Shortness of Breath Stop: 05/19/17 22:01 Lorazepam (Ativan) 1 mg IVP Q4H PRN; Protocol PRN Reason: Anxiety/Agitation Stop: 05/27/17 17:48 Last Admin: 04/01/17 13:34 Dose: 1 mg Magnesium Hydroxide (Milk Of Magnesia) 30 ml PO HS PRN PRN Reason: Constipation Stop: 05/19/17 22:01 Last Admin: 03/28/17 19:50 Dose: 30 ml Metronidazole (Flagyl) 500 mg PO BID [facility] Stop: 04/05/17 16:59 Last Admin: 04/01/17 10:00 Dose: Not Given Miscellaneous (Clinical Monitoring) 1 ea MC DAILY PRN PRN Reason: RENAL Stop: 05/20/17 07:28 Morphine Sulfate (Morphine) 2 mg IVP Q4HR PRN PRN Reason: Pain (Moderate) Stop: 05/28/17 22:27 Last Admin: 04/01/17 12:52 Dose: 2 mg Ondansetron HCl (Zofran Odt) 4 mg PO Q6H PRN PRN Reason: Nausea / Vomiting Stop: 05/19/17 22:01 Thiamine HCl (Vitamin B1) 100 mg PO DAILY LUZMARIA Stop: 05/21/17 08:59 Last Admin: 04/01/17 10:00 Dose: Not Given Trazodone HCl (Desyrel) 50 mg PO HS LUMZARIA PRN Reason: Protocol Stop: 05/20/17 20:59 Last Admin: 03/31/17 20:36 Dose: 50 mg General: Moderate distress HEENT: Atraumatic, Mucous membr. moist/pink Neck: Supple, +2 carotid pulse wo bruit Cardiovascular: Regular rate, Normal S1, Normal S2 Lungs: Clear to auscultation Abdomen: Bowel sounds, Soft Extremities: no Edema Neurological: Sensation intact Skin: no Rash Assessment/Plan - Assessment Assessment: ERICA on CKD Hypernatremia watery diarrhea possible acute gastroenteritis, C. Diff Gen. 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 coli, P. aeru abcess - Plan Plan: Lab - Result Diagrams 03/22/17 06:00 03/22/17 06:00 Current Medications Acetaminophen (Tylenol) 650 mg PO Q6H PRN PRN Reason: Mild Pain/Headache/T above 101 Stop: 05/19/17 22:01 Last Admin: 03/21/17 22:17 Dose: 650 mg Acetaminophen/Hydrocodone Bitart ([place] 10 Mg/325 Mg) 1 tab PO Q6H PRN PRN Reason: Severe Pain Stop: 05/19/17 22:01 Last Admin: 03/21/17 18:37 Dose: 1 tab Acetaminophen/Hydrocodone Bitart ([place] 5mg/325mg) 1 tab PO Q6H PRN PRN Reason: Moderate Pain Stop: 05/19/17 22:01 Al Hydrox/Mg Hydrox/Simethicone (Maalox) 30 ml PO Q6H PRN PRN Reason: Constipation Stop: 05/19/17 22:01 Albuterol Sulfate (Albuterol 2.5mg/3ml Neb Ud) 2.5 mg HHN Q6H PRN PRN Reason: Shortness of Breath Stop: 05/19/17 22:01 Benztropine Mesylate (Cogentin) 2 mg PO HS LUZMARIA Stop: 05/20/17 20:59 Last Admin: 03/21/17 22:16 Dose: 2 mg Folic Acid (Folate) 1 mg PO DAILY LUZMARIA Stop: 05/21/17 08:59 Last Admin: 03/22/17 08:26 Dose: 1 mg Gabapentin (Neurontin) 300 mg PO TID LUZMARIA Stop: 05/20/17 13:59 Last Admin: 03/22/17 08:26 Dose: 300 mg Haloperidol (Haldol) 10 mg PO BID LUZMARIA Stop: 05/20/17 08:59 Last Admin: 03/22/17 16:25 Dose: 10 mg Dextrose/Sodium Chloride (D5-0.9%Ns) 1,000 mls @ 100 mls/hr IV .Q10H LUZMARIA Stop: 05/19/17 22:14 Last Admin: 03/22/17 08:27 Dose: 100 mls/hr Ipratropium [place] (Atrovent Neb 0.5mg/2.5ml) 0.5 mg HHN Q6H PRN PRN Reason: Shortness of Breath Stop: 05/19/17 22:01 [place] Carbonate (Eskalith) 300 mg PO HS LUZMARIA PRN Reason: Protocol Stop: 05/20/17 20:59 Last Admin: 03/21/17 22:16 Dose: 300 mg Lorazepam (Ativan) 1 mg IVP Q4H PRN; Protocol PRN Reason: Anxiety/Agitation Stop: 05/19/17 22:01 Magnesium Hydroxide (Milk Of Magnesia) 30 ml PO HS PRN PRN Reason: Constipation Stop: 06/22/17 22:01 Miscellaneous (Clinical Monitoring) 1 ea MC DAILY PRN PRN Reason: RENAL Stop: 05/20/17 07:28 Ondansetron HCl (Zofran Odt) 4 mg PO Q6H PRN PRN Reason: Nausea / Vomiting Stop: 05/19/17 22:01 Thiamine HCl (Vitamin B1) 100 mg PO DAILY LUZMARIA Stop: 05/21/17 08:59 Last Admin: 03/22/17 08:26 Dose: 100 mg Trazodone HCl (Desyrel) 50 mg PO HS LUZMARIA PRN Reason: Protocol Stop: 05/20/17 20:59 Last Admin: 03/21/17 22:16 Dose: 50 mg Na down to 148 BUN/CR improved to 24/1.6 started to eat & continue ivf encouraged increase po intake f/u electrolytes will need Gray cath until seen by urology underwent I/D of perirectal abscess switch ivf to D5 1/2 NS due to increase in Na level Nutritional Asmnt/Malnutr-PDOC - Dietary Evaluation Malnutrition Findings (Please click <Entered> for more info): Nutritional Asmnt/Malnutrition Start: 03/25/17 15: 13 Text: Status: Complete Freq: Document 03/25/17 15:13 GSUN (Rec: 03/25/17 15:30 GSUN [id number]) Nutritional Asmnt/Malnutrition Patient General Information Nutritional Screening Moderate Risk Screening Diagnosis Acute kidney injury, dehydration Pertinent Medical Hx/Surgical Hx Asthma, schizophrenia Subjective Information 51 year old male. Pt noted with poor PO intake since adm 03/20. Pt was sitting in a chair next to bed during visit , RN in room. Pt was very fixated on his urine output and gray catheter, pt either remained silent or expressed concern about his urine output , limited interview due to this and likely hx psychosis. Pt stated he does have appetite with taste bud present, however did not elaborate further regarding poor PO. Obtained CBW via bedscale with bed properly calibrated and then pt lying down. Current Diet Order/ Nutrition Support Regular Pertinent Medications Maalox, D5 0.9%, Folate, Haldol, MOM, Zofran, Vitamin B1 Pertinent Labs 03/23: Sodium 127L, BUN 46H, creaitnine 2.2H, glucose 107H 03/25: Sodium 130L (improving), BUN 32H (improving), creatinine 1.7H (improving) glucose 165H Nutritional Hx/Data Height 1.83 m Height (Calculated Centimeters) 182.9 Current Weight (lbs) 75.432 kg Weight (Calculated Kilograms) 75.4 Weight (Calculated Grams) 50460.4 [place] Body Weight 178 Weight Status Approriate GI Symptoms Food Allergies No Skin Integrity/Comment: [place] 15. Skin intact. Current %PO Poor (25-49%) Estimated Nutritional Goals BEE in Kcals: Using Current wt Calories/Kcals/Kg CBW 75.4kg Kcals Calculated 1885-2262kcal (25-30kcal/kg) Protein: Using Current wt Protein Calculated 45g (0.6g/kg, monitor renal, improving) Fluid: ml 1885-2262ml (1ml/kcal) Nutritional Problem 1. Problem Problem Inadequate oral food beverage intake related to Etiology likely cognition aeb Signs/Symptoms: pt fixated on urine output and does not want to eat at this time Intervention/Recommendation Comments 1. Continue with regular diet. Continue to monitor sodium level and renal labs. Recommend low sodium diet if approrpaite. 2. Encourage PO intake, closely monitor. Pt appeared fixated on urine output and does not want to eat. Pt reported good appetite. RD explained importance of nutrition, pt nodded. 3. Monitor weight, prevent weight loss. Expected Outcomes/Goals Expected Outcomes/Goals 1. PO intake to meet at least 75% of estimated nutritional needs. Physician Parameters for PEM Serum Albumin (g/dl) 3.1 - 3.4 (Mild)
[2017-04-01 15:29] LABS: C-REACTIVE PROTEIN 7.2 mg/dL (0.0-0.9)
--- NOTE | 2017-04-01 16:07 | Infectious Disease Prog Note ---
Infectious Disease Subjective - Review of Systems Service Date: 04/01/17 Subjective: cc uti/rectal abscess wound cx e coli/pseudomonas s zosyn; bacteroides schedule for discharge on zosyn flagylx 7-10 days ros no fever o/e vss confused pale no icterus abd sft ext npulse equal dx uti/recal abscess plan zosyn flagyl Infectious Disease Objective - Results Result Diagrams: 04/01/17 06:06 04/01/17 06:06 Recent Labs: Laboratory Last Values WBC 11.5 Th/cmm (4.8-10.8) H D 04/01/17 06:06 RBC 2.95 Mil/cmm (4.30-5.70) L 04/01/17 06:06 Hgb 9.3 gm/dL (13.2-17.3) L 04/01/17 06:06 Hct 26.4 % (39.0-49.0) L 04/01/17 06:06 MCV 89.3 fl (80-99) 04/01/17 06:06 MCH 31.5 pg (26.0-30.0) H 04/01/17 06:06 MCHC Differential 35.3 pg (28.0-36.0) 04/01/17 06:06 RDW 13.1 % (11.5-20.0) 04/01/17 06:06 Plt Count 156 Th/cmm (150-400) D 04/01/17 06:06 MPV 7.7 fl 04/01/17 06:06 Neutrophils % 46.5 % (40.0-80.0) 04/01/17 06:06 Band Neutrophils % 4 % (0-10) 03/31/17 06:05 Lymphocytes % 41.9 % (20.0-50.0) 04/01/17 06:06 Monocytes % 10.5 % (2.0-10.0) H 04/01/17 06:06 Eosinophils % 0.3 % (0.0-5.0) 04/01/17 06:06 Basophils % 0.8 % (0.0-2.0) 04/01/17 06:06 Neutrophils (Manual) 56 % (40-80) 03/31/17 06:05 Lymphocytes 25 % (20-50) 03/31/17 06:05 Monocytes 13 % (2-10) H 03/31/17 06:05 Eosinophils 2 % (0-5) 03/26/17 06:41 Metamyelocytes 1 % (0-0) H 03/31/17 06:05 Atypical Lymphocytes 1 % 03/31/17 06:05 Platelet Estimate ADEQUATE (NORMAL) 03/31/17 06:05 Platelet Morphology PLATELET CLUMPS SEEN (NORMAL) 03/31/17 06:05 Anisocytosis 1+ 03/31/17 06:05 RBC Morph Micro Appear ABNORMAL (NORMAL) 03/31/17 06:05 ESR 110 mm/hr (0-20) H 04/01/17 06:06 Eos Smear Source URINE 03/22/17 00:30 Eos Smear Total Cells NONE SEEN (NONE SEEN) 03/22/17 00:30 PT 12.2 SECONDS (9.5-11.5) H 04/01/17 06:06 INR 1.16 (0.5-1.4) 04/01/17 06:06 PTT (Actin FS) 28.0 SECONDS (26.0-38.0) 04/01/17 06:06 Sodium 148 mEq/L (136-145) H 04/01/17 06:06 Potassium 3.8 mEq/L (3.5-5.1) 04/01/17 06:06 Chloride 117 mEq/L (98-107) H 04/01/17 06:06 Carbon Dioxide 27.1 mEq/L (21.0-31.0) 04/01/17 06:06 Anion Gap 7.7 (7.0-16.0) 04/01/17 06:06 BUN 25 mg/dL (7-25) 04/01/17 06:06 Creatinine 1.6 mg/dL (0.7-1.3) H 04/01/17 06:06 Est GFR ( Amer) 59.1 ml/min (>90) 04/01/17 06:06 Est GFR (Non-Af Amer) 48.9 ml/min 04/01/17 06:06 BUN/Creatinine Ratio 15.6 04/01/17 06:06 Glucose 148 mg/dL (70-105) H 04/01/17 06:06 POC Glucose 141 MG/DL (70 - 105) H 04/01/17 06:38 Plasma/Ser Osmolality 279 mOsmol/kg (275-295) 03/22/17 00:30 Uric Acid 10.1 mg/dL (4.4-7.6) H 03/22/17 06:00 Calcium 8.9 mg/dL (8.6-10.3) 04/01/17 06:06 Phosphorus 2.0 mg/dL (2.5-5.0) L 03/27/17 06:18 Magnesium 2.6 mg/dL (1.9-2.7) 03/26/17 06:41 Ferritin 5024 ng/mL (30-400) H 03/23/17 06:10 Total Bilirubin 0.8 mg/dL (0.3-1.0) 04/01/17 06:06 Direct Bilirubin 0.43 mg/dL (0.0-0.2) H 04/01/17 06:06 AST 178 U/L (13-39) H 04/01/17 06:06 ALT 109 U/L (7-52) H 04/01/17 06:06 Alkaline Phosphatase 608 U/L (34-104) H 04/01/17 06:06 Ammonia 28 umol/L (16-53) 03/29/17 20:39 Creatine Kinase 1871 U/L (30-223) H 04/01/17 06:06 CK-MB (CK-2) 13.1 ng/mL (0.6-6.3) H 04/01/17 06:06 Troponin I 0.31 ng/mL (0.01-0.05) H* D 04/01/17 06:06 C-Reactive Protein 7.2 mg/dL (0.0-0.9) H 04/01/17 06:06 Total Protein 6.8 gm/dL (6.0-8.3) 04/01/17 06:06 Albumin 2.5 gm/dL (4.2-5.5) L 04/01/17 06:06 Globulin 4.3 gm/dL 04/01/17 06:06 Albumin/Globulin Ratio 0.6 (1.0-1.8) L 04/01/17 06:06 Ceruloplasmin 36.4 mg/dL (16.0-31.0) H 03/23/17 06:10 Vitamin B12 1296 pg/mL (211-946) H 03/30/17 06:30 Folic Acid 14.4 ng/mL (>3.0) 03/30/17 06:30 Urine Source GRAY [place] 03/27/17 17:00 Urine Color YELLOW 03/27/17 17:00 Urine Clarity SLIGHT HAZY (CLEAR) 03/27/17 17:00 Urine pH 5.5 03/27/17 17:00 Ur Specific [place] 1.015 (1.005-1.030) 03/27/17 17:00 Urine Protein >300 mg/dL (NEGATIVE) H 03/27/17 17:00 Urine Glucose (UA) NEGATIVE mg/dL (NEGATIVE) 03/27/17 17:00 Urine Ketones NEGATIVE mg/dL (NEGATIVE) 03/27/17 17:00 Urine Blood MODERATE (NEGATIVE) H 03/27/17 17:00 Urine Nitrate NEGATIVE (NEGATIVE) 03/27/17 17:00 Urine Bilirubin NEGATIVE (NEGATIVE) 03/27/17 17:00 Urine Urobilinogen 0.2 E.U./dL (0.2 - 1.0) 03/27/17 17:00 Ur Leukocyte Esterase NEGATIVE (NEGATIVE) 03/27/17 17:00 Urine RBC 5-10 /hpf (0-5) H 03/27/17 17:00 Urine WBC 2-5 /hpf (0-5) H 03/27/17 17:00 Ur Epithelial Cells FEW /lpf (FEW) 03/27/17 17:00 Amorphous Sediment FEW URATES (NONE SEEN) 03/27/17 17:00 Urine Bacteria FEW /hpf (NONE SEEN) 03/27/17 17:00 Urine Osmolality 305 mOsmol/kg 03/22/17 00:30 Ur Random Sodium 12 mmol/L 03/22/17 00:30 Urine Creatinine 86.1 mg/dl (Not Estab.) 03/22/17 00:30 Urine Microalbumin 1521.4 ug/mL (Not Estab.) 03/22/17 00:30 Microalb/Creat Ratio 1767.0 mg/g creat (0.0-30.0) H 03/22/17 00:30 Urine Opiates Screen NEGATIVE (NEGATIVE) 03/22/17 00:30 Urine Methadone Screen NEGATIVE (NEGATIVE) 03/22/17 00:30 Ur Barbiturates Screen NEGATIVE (NEGATIVE) 03/22/17 00:30 Ur Tricyclics Screen NEGATIVE (NEGATIVE) 03/22/17 00:30 Ur Phencyclidine Scrn NEGATIVE (NEGATIVE) 03/22/17 00:30 Amphetamines Screen NEGATIVE (NEGATIVE) 03/22/17 00:30 U Methamphetamines Scrn NEGATIVE (NEGATIVE) 03/22/17 00:30 U Benzodiazepines Scrn NEGATIVE (NEGATIVE) 03/22/17 00:30 [place] 0.84 MEQ/L (0.50-1.00) 03/30/17 06:30 U Cocaine Metab Screen NEGATIVE (NEGATIVE) 03/22/17 00:30 U Cannabinoids Screen POSITIVE (NEGATIVE) H 03/22/17 00:30 Hepatitis A IgM Ab Negative (Negative) 03/23/17 06:10 Hep Bs Antigen Negative (Negative) 03/23/17 06:10 Hep B Core IgM Ab Negative (Negative) 03/23/17 06:10 Hepatitis C Antibody <0.1 s/co ratio (0.0-0.9) 03/23/17 06:10 - Physical Exam Vitals and I&O: Vital Signs Temp 99.2 F 04/01/17 08:00 Pulse 113 04/01/17 12:45 Resp 19 04/01/17 08:00 BP 141/76 04/01/17 08:00 Pulse Ox 96 04/01/17 08:00 Intake & Output 03/31/17 04/01/17 04/01/17 18:59 06:59 18:59 Intake Total 50 1100 Output Total 1400 Balance -1350 1100 Intake: Intake, IV Amount 50 1100 Dextrose 5% 1,000 ml @ 1000 100 mls/hr IV .Q10H [facility] Rx#:[id number] Piperacillin Sodium/ 50 100 Tazobact 3.375 gm In Dextrose 5% 50 ml @ 100 mls/hr IV Q8H [facility] Rx#: [id number] Output: Urine 1400 Active Medications: Current Medications Acetaminophen (Tylenol) 650 mg PO Q6H PRN PRN Reason: Mild Pain/Headache/T above 101 Stop: 05/19/17 22:01 Last Admin: 03/30/17 08:43 Dose: 650 mg Acetaminophen/Hydrocodone Bitart ([place] 10 Mg/325 Mg) 1 tab PO Q4H PRN PRN Reason: Pain (Severe) Stop: 05/27/17 17:48 Last Admin: 03/31/17 17:48 Dose: 1 tab Acetaminophen/Hydrocodone Bitart ([place] 5mg/325mg) 1 tab PO Q4H PRN PRN Reason: Moderate Pain Stop: 05/27/17 17:48 Al Hydrox/Mg Hydrox/Simethicone (Maalox) 30 ml PO Q6H PRN PRN Reason: GI UPSET Stop: 05/19/17 22:01 Albuterol Sulfate (Albuterol 2.5mg/3ml Neb Ud) 2.5 mg HHN Q6H PRN PRN Reason: Shortness of Breath Stop: 05/19/17 22:01 Benztropine Mesylate (Cogentin) 2 mg PO HS [facility]END[facility] TO [facility] Stop: 05/20/17 20:59 Last Admin: 03/31/17 20:36 Dose: 2 mg Clonidine HCl (Catapres) 0.1 mg PO Q6HR PRN PRN Reason: SBP ABOVE 160 Stop: 05/30/17 17:51 Last Admin: 04/01/17 12:45 Dose: 0.1 mg Folic Acid (Folate) 1 mg PO DAILY [facility] Stop: 05/21/17 08:59 Last Admin: 04/01/17 10:00 Dose: Not Given Gabapentin (Neurontin) 400 mg PO TID [facility] TO [facility] Stop: 05/29/17 07:48 Last Admin: 04/01/17 15:00 Dose: Not Given Haloperidol (Haldol) 10 mg PO BID [facility] Stop: 05/20/17 08:59 Last Admin: 04/01/17 10:00 Dose: Not Given Piperacillin Sod/Tazobactam (Sod 3.375 gm/ Dextrose) 50 mls @ 100 mls/hr IV Q8H [facility] Stop: 05/28/17 12:59 Last Admin: 04/01/17 12:46 Dose: 100 mls/hr Dextrose (D5w) 1,000 mls @ 100 mls/hr IV .Q10H [facility] Stop: 05/30/17 17:44 Last Admin: 04/01/17 05:12 Dose: 100 mls/hr Ipratropium [place] (Atrovent Neb 0.5mg/2.5ml) 0.5 mg HHN Q6H PRN PRN Reason: Shortness of Breath Stop: 05/19/17 22:01 Lorazepam (Ativan) 1 mg IVP Q4H PRN; Protocol PRN Reason: Anxiety/Agitation Stop: 05/27/17 17:48 Last Admin: 04/01/17 13:34 Dose: 1 mg Magnesium Hydroxide (Milk Of Magnesia) 30 ml PO HS PRN PRN Reason: Constipation Stop: 05/19/17 22:01 Last Admin: 03/28/17 19:50 Dose: 30 ml Metronidazole (Flagyl) 500 mg PO BID [facility] Stop: 04/05/17 16:59 Last Admin: 04/01/17 10:00 Dose: Not Given Miscellaneous (Clinical Monitoring) 1 ea MC DAILY PRN PRN Reason: RENAL Stop: 05/20/17 07:28 Morphine Sulfate (Morphine) 2 mg IVP Q4HR PRN PRN Reason: Pain (Moderate) Stop: 05/28/17 22:27 Last Admin: 04/01/17 12:52 Dose: 2 mg Ondansetron HCl (Zofran Odt) 4 mg PO Q6H PRN PRN Reason: Nausea / Vomiting Stop: 05/19/17 22:01 Thiamine HCl (Vitamin B1) 100 mg PO DAILY [facility] Stop: 05/21/17 08:59 Last Admin: 04/01/17 10:00 Dose: Not Given Trazodone HCl (Desyrel) 50 mg PO HS [facility] PRN Reason: Protocol Stop: 05/20/17 20:59 Last Admin: 03/31/17 20:36 Dose: 50 mg Nutritional Asmnt/Malnutr-PDOC - Dietary Evaluation Malnutrition Findings (Please click <Entered> for more info): Nutritional Asmnt/Malnutrition Start: 03/25/17 15: 13 Text: Status: Complete Freq: Document 03/25/17 15:13 GSUN (Rec: 03/25/17 15:30 GSUN [id number]) Nutritional Asmnt/Malnutrition Patient General Information Nutritional Screening Moderate Risk Screening Diagnosis Acute kidney injury, dehydration Pertinent Medical Hx/Surgical Hx Asthma, schizophrenia Subjective Information 51 year old male. Pt noted with poor PO intake since adm 03/20. Pt was sitting in a chair next to bed during visit , RN in room. Pt was very fixated on his urine output and gray catheter, pt either remained silent or expressed concern about his urine output , limited interview due to this and likely hx psychosis. Pt stated he does have appetite with taste bud present, however did not elaborate further regarding poor PO. Obtained CBW via bedscale with bed properly calibrated and then pt lying down. Current Diet Order/ Nutrition Support Regular Pertinent Medications Maalox, D5 0.9%, Folate, Haldol, MOM, Zofran, Vitamin B1 Pertinent Labs 03/23: Sodium 127L, BUN 46H, creaitnine 2.2H, glucose 107H 03/25: Sodium 130L (improving), BUN 32H (improving), creatinine 1.7H (improving) glucose 165H Nutritional Hx/Data Height 1.83 m Height (Calculated Centimeters) 182.9 Current Weight (lbs) 75.432 kg Weight (Calculated Kilograms) 75.4 Weight (Calculated Grams) 50428.4 [place] Body Weight 178 Weight Status Approriate GI Symptoms Food Allergies No Skin Integrity/Comment: [place] 15. Skin intact. Current %PO Poor (25-49%) Estimated Nutritional Goals BEE in Kcals: Using Current wt Calories/Kcals/Kg CBW 75.4kg Kcals Calculated 1885-2262kcal (25-30kcal/kg) Protein: Using Current wt Protein Calculated 45g (0.6g/kg, monitor renal, improving) Fluid: ml 1885-2262ml (1ml/kcal) Nutritional Problem 1. Problem Problem Inadequate oral food beverage intake related to Etiology likely cognition aeb Signs/Symptoms: pt fixated on urine output and does not want to eat at this time Intervention/Recommendation Comments 1. Continue with regular diet. Continue to monitor sodium level and renal labs. Recommend low sodium diet if approrpaite. 2. Encourage PO intake, closely monitor. Pt appeared fixated on urine output and does not want to eat. Pt reported good appetite. RD explained importance of nutrition, pt nodded. 3. Monitor weight, prevent weight loss. Expected Outcomes/Goals Expected Outcomes/Goals 1. PO intake to meet at least 75% of estimated nutritional needs. Physician Parameters for PEM Serum Albumin (g/dl) 3.1 - 3.4 (Mild)
--- NOTE | 2017-04-01 16:34 | General Progress Note ---
Subjective - Review of Systems Service Date: 04/01/17 Events since last encounter: informed by case management that admission was denied' patient needs lap cholecystectomy but this is not an emergency discussed options with mother Objective - Results Result Diagrams: 04/01/17 06:06 04/01/17 06:06 Recent Labs: Laboratory Last Values WBC 11.5 Th/cmm (4.8-10.8) H D 04/01/17 06:06 RBC 2.95 Mil/cmm (4.30-5.70) L 04/01/17 06:06 Hgb 9.3 gm/dL (13.2-17.3) L 04/01/17 06:06 Hct 26.4 % (39.0-49.0) L 04/01/17 06:06 MCV 89.3 fl (80-99) 04/01/17 06:06 MCH 31.5 pg (26.0-30.0) H 04/01/17 06:06 MCHC Differential 35.3 pg (28.0-36.0) 04/01/17 06:06 RDW 13.1 % (11.5-20.0) 04/01/17 06:06 Plt Count 156 Th/cmm (150-400) D 04/01/17 06:06 MPV 7.7 fl 04/01/17 06:06 Neutrophils % 46.5 % (40.0-80.0) 04/01/17 06:06 Band Neutrophils % 4 % (0-10) 03/31/17 06:05 Lymphocytes % 41.9 % (20.0-50.0) 04/01/17 06:06 Monocytes % 10.5 % (2.0-10.0) H 04/01/17 06:06 Eosinophils % 0.3 % (0.0-5.0) 04/01/17 06:06 Basophils % 0.8 % (0.0-2.0) 04/01/17 06:06 Neutrophils (Manual) 56 % (40-80) 03/31/17 06:05 Lymphocytes 25 % (20-50) 03/31/17 06:05 Monocytes 13 % (2-10) H 03/31/17 06:05 Eosinophils 2 % (0-5) 03/26/17 06:41 Metamyelocytes 1 % (0-0) H 03/31/17 06:05 Atypical Lymphocytes 1 % 03/31/17 06:05 Platelet Estimate ADEQUATE (NORMAL) 03/31/17 06:05 Platelet Morphology PLATELET CLUMPS SEEN (NORMAL) 03/31/17 06:05 Anisocytosis 1+ 03/31/17 06:05 RBC Morph Micro Appear ABNORMAL (NORMAL) 03/31/17 06:05 ESR 110 mm/hr (0-20) H 04/01/17 06:06 Eos Smear Source URINE 03/22/17 00:30 Eos Smear Total Cells NONE SEEN (NONE SEEN) 03/22/17 00:30 PT 12.2 SECONDS (9.5-11.5) H 04/01/17 06:06 INR 1.16 (0.5-1.4) 04/01/17 06:06 PTT (Actin FS) 28.0 SECONDS (26.0-38.0) 04/01/17 06:06 Sodium 148 mEq/L (136-145) H 04/01/17 06:06 Potassium 3.8 mEq/L (3.5-5.1) 04/01/17 06:06 Chloride 117 mEq/L (98-107) H 04/01/17 06:06 Carbon Dioxide 27.1 mEq/L (21.0-31.0) 04/01/17 06:06 Anion Gap 7.7 (7.0-16.0) 04/01/17 06:06 BUN 25 mg/dL (7-25) 04/01/17 06:06 Creatinine 1.6 mg/dL (0.7-1.3) H 04/01/17 06:06 Est GFR ( Amer) 59.1 ml/min (>90) 04/01/17 06:06 Est GFR (Non-Af Amer) 48.9 ml/min 04/01/17 06:06 BUN/Creatinine Ratio 15.6 04/01/17 06:06 Glucose 148 mg/dL (70-105) H 04/01/17 06:06 POC Glucose 141 MG/DL (70 - 105) H 04/01/17 06:38 Plasma/Ser Osmolality 279 mOsmol/kg (275-295) 03/22/17 00:30 Uric Acid 10.1 mg/dL (4.4-7.6) H 03/22/17 06:00 Calcium 8.9 mg/dL (8.6-10.3) 04/01/17 06:06 Phosphorus 2.0 mg/dL (2.5-5.0) L 03/27/17 06:18 Magnesium 2.6 mg/dL (1.9-2.7) 03/26/17 06:41 Ferritin 5024 ng/mL (30-400) H 03/23/17 06:10 Total Bilirubin 0.8 mg/dL (0.3-1.0) 04/01/17 06:06 Direct Bilirubin 0.43 mg/dL (0.0-0.2) H 04/01/17 06:06 AST 178 U/L (13-39) H 04/01/17 06:06 ALT 109 U/L (7-52) H 04/01/17 06:06 Alkaline Phosphatase 608 U/L (34-104) H 04/01/17 06:06 Ammonia 28 umol/L (16-53) 03/29/17 20:39 Creatine Kinase 1871 U/L (30-223) H 04/01/17 06:06 CK-MB (CK-2) 13.1 ng/mL (0.6-6.3) H 04/01/17 06:06 Troponin I 0.31 ng/mL (0.01-0.05) H* D 04/01/17 06:06 C-Reactive Protein 7.2 mg/dL (0.0-0.9) H 04/01/17 06:06 Total Protein 6.8 gm/dL (6.0-8.3) 04/01/17 06:06 Albumin 2.5 gm/dL (4.2-5.5) L 04/01/17 06:06 Globulin 4.3 gm/dL 04/01/17 06:06 Albumin/Globulin Ratio 0.6 (1.0-1.8) L 04/01/17 06:06 Ceruloplasmin 36.4 mg/dL (16.0-31.0) H 03/23/17 06:10 Vitamin B12 1296 pg/mL (211-946) H 03/30/17 06:30 Folic Acid 14.4 ng/mL (>3.0) 03/30/17 06:30 Urine Source GRAY [place] 03/27/17 17:00 Urine Color YELLOW 03/27/17 17:00 Urine Clarity SLIGHT HAZY (CLEAR) 03/27/17 17:00 Urine pH 5.5 03/27/17 17:00 Ur Specific [place] 1.015 (1.005-1.030) 03/27/17 17:00 Urine Protein >300 mg/dL (NEGATIVE) H 03/27/17 17:00 Urine Glucose (UA) NEGATIVE mg/dL (NEGATIVE) 03/27/17 17:00 Urine Ketones NEGATIVE mg/dL (NEGATIVE) 03/27/17 17:00 Urine Blood MODERATE (NEGATIVE) H 03/27/17 17:00 Urine Nitrate NEGATIVE (NEGATIVE) 03/27/17 17:00 Urine Bilirubin NEGATIVE (NEGATIVE) 03/27/17 17:00 Urine Urobilinogen 0.2 E.U./dL (0.2 - 1.0) 03/27/17 17:00 Ur Leukocyte Esterase NEGATIVE (NEGATIVE) 03/27/17 17:00 Urine RBC 5-10 /hpf (0-5) H 03/27/17 17:00 Urine WBC 2-5 /hpf (0-5) H 03/27/17 17:00 Ur Epithelial Cells FEW /lpf (FEW) 03/27/17 17:00 Amorphous Sediment FEW URATES (NONE SEEN) 03/27/17 17:00 Urine Bacteria FEW /hpf (NONE SEEN) 03/27/17 17:00 Urine Osmolality 305 mOsmol/kg 03/22/17 00:30 Ur Random Sodium 12 mmol/L 03/22/17 00:30 Urine Creatinine 86.1 mg/dl (Not Estab.) 03/22/17 00:30 Urine Microalbumin 1521.4 ug/mL (Not Estab.) 03/22/17 00:30 Microalb/Creat Ratio 1767.0 mg/g creat (0.0-30.0) H 03/22/17 00:30 Urine Opiates Screen NEGATIVE (NEGATIVE) 03/22/17 00:30 Urine Methadone Screen NEGATIVE (NEGATIVE) 03/22/17 00:30 Ur Barbiturates Screen NEGATIVE (NEGATIVE) 03/22/17 00:30 Ur Tricyclics Screen NEGATIVE (NEGATIVE) 03/22/17 00:30 Ur Phencyclidine Scrn NEGATIVE (NEGATIVE) 03/22/17 00:30 Amphetamines Screen NEGATIVE (NEGATIVE) 03/22/17 00:30 U Methamphetamines Scrn NEGATIVE (NEGATIVE) 03/22/17 00:30 U Benzodiazepines Scrn NEGATIVE (NEGATIVE) 03/22/17 00:30 [place] 0.84 MEQ/L (0.50-1.00) 03/30/17 06:30 U Cocaine Metab Screen NEGATIVE (NEGATIVE) 03/22/17 00:30 U Cannabinoids Screen POSITIVE (NEGATIVE) H 03/22/17 00:30 Hepatitis A IgM Ab Negative (Negative) 03/23/17 06:10 Hep Bs Antigen Negative (Negative) 03/23/17 06:10 Hep B Core IgM Ab Negative (Negative) 03/23/17 06:10 Hepatitis C Antibody <0.1 s/co ratio (0.0-0.9) 03/23/17 06:10 - Physical Exam Vitals and I&O: Vital Signs Temp 99.2 F 04/01/17 08:00 Pulse 113 04/01/17 12:45 Resp 19 04/01/17 08:00 BP 141/76 04/01/17 08:00 Pulse Ox 96 04/01/17 08:00 Intake & Output 03/31/17 04/01/17 04/01/17 18:59 06:59 18:59 Intake Total 50 1100 Output Total 1400 Balance -1350 1100 Intake: Intake, IV Amount 50 1100 Dextrose 5% 1,000 ml @ 1000 100 mls/hr IV .Q10H [facility] Rx#:[id number] Piperacillin Sodium/ 50 100 Tazobact 3.375 gm In Dextrose 5% 50 ml @ 100 mls/hr IV Q8H [facility] Rx#: [id number] Output: Urine 1400 Active Medications: Current Medications Acetaminophen (Tylenol) 650 mg PO Q6H PRN PRN Reason: Mild Pain/Headache/T above 101 Stop: 05/19/17 22:01 Last Admin: 03/30/17 08:43 Dose: 650 mg Acetaminophen/Hydrocodone Bitart ([place] 10 Mg/325 Mg) 1 tab PO Q4H PRN PRN Reason: Pain (Severe) Stop: 05/27/17 17:48 Last Admin: 03/31/17 17:48 Dose: 1 tab Acetaminophen/Hydrocodone Bitart ([place] 5mg/325mg) 1 tab PO Q4H PRN PRN Reason: Moderate Pain Stop: 05/27/17 17:48 Al Hydrox/Mg Hydrox/Simethicone (Maalox) 30 ml PO Q6H PRN PRN Reason: GI UPSET Stop: 05/19/17 22:01 Albuterol Sulfate (Albuterol 2.5mg/3ml Neb Ud) 2.5 mg HHN Q6H PRN PRN Reason: Shortness of Breath Stop: 05/19/17 22:01 Benztropine Mesylate (Cogentin) 2 mg PO HS [facility] Stop: 05/20/17 20:59 Last Admin: 03/31/17 20:36 Dose: 2 mg Clonidine HCl (Catapres) 0.1 mg PO Q6HR PRN PRN Reason: SBP ABOVE 160 Stop: 05/30/17 17:51 Last Admin: 04/01/17 12:45 Dose: 0.1 mg Folic Acid (Folate) 1 mg PO DAILY [facility] Stop: 05/21/17 08:59 Last Admin: 04/01/17 10:00 Dose: Not Given Gabapentin (Neurontin) 400 mg PO TID [facility] Stop: 05/29/17 07:48 Last Admin: 04/01/17 15:00 Dose: Not Given Haloperidol (Haldol) 10 mg PO BID [facility] Stop: 05/20/17 08:59 Last Admin: 04/01/17 10:00 Dose: Not Given Piperacillin Sod/Tazobactam (Sod 3.375 gm/ Dextrose) 50 mls @ 100 mls/hr IV Q8H [facility] Stop: 05/28/17 12:59 Last Admin: 04/01/17 12:46 Dose: 100 mls/hr Dextrose (D5w) 1,000 mls @ 100 mls/hr IV .Q10H [facility] Stop: 05/30/17 17:44 Last Admin: 04/01/17 05:12 Dose: 100 mls/hr Ipratropium [place] (Atrovent Neb 0.5mg/2.5ml) 0.5 mg HHN Q6H PRN PRN Reason: Shortness of Breath Stop: 05/19/17 22:01 Lorazepam (Ativan) 1 mg IVP Q4H PRN; Protocol PRN Reason: Anxiety/Agitation Stop: 05/27/17 17:48 Last Admin: 04/01/17 13:34 Dose: 1 mg Magnesium Hydroxide (Milk Of Magnesia) 30 ml PO HS PRN PRN Reason: Constipation Stop: 05/19/17 22:01 Last Admin: 03/28/17 19:50 Dose: 30 ml Metronidazole (Flagyl) 500 mg PO BID [facility] Stop: 04/05/17 16:59 Last Admin: 04/01/17 10:00 Dose: Not Given Miscellaneous (Clinical Monitoring) 1 ea MC DAILY PRN PRN Reason: RENAL Stop: 05/20/17 07:28 Morphine Sulfate (Morphine) 2 mg IVP Q4HR PRN PRN Reason: Pain (Moderate) Stop: 05/28/17 22:27 Last Admin: 04/01/17 12:52 Dose: 2 mg Ondansetron HCl (Zofran Odt) 4 mg PO Q6H PRN PRN Reason: Nausea / Vomiting Stop: 05/19/17 22:01 Thiamine HCl (Vitamin B1) 100 mg PO DAILY LUZMARIA Stop: 05/21/17 08:59 Last Admin: 04/01/17 10:00 Dose: Not Given Trazodone HCl (Desyrel) 50 mg PO HS LUZMARIA PRN Reason: Protocol Stop: 05/20/17 20:59 Last Admin: 03/31/17 20:36 Dose: 50 mg Nutritional Asmnt/Malnutr-PDOC - Dietary Evaluation Malnutrition Findings (Please click <Entered> for more info): Nutritional Asmnt/Malnutrition Start: 03/25/17 15: 13 Text: Status: Complete Freq: Document 03/25/17 15:13 GSUN (Rec: 03/25/17 15:30 GSUN [email or web address]) Nutritional Asmnt/Malnutrition Patient General Information Nutritional Screening Moderate Risk Screening Diagnosis Acute kidney injury, dehydration Pertinent Medical Hx/Surgical Hx Asthma, schizophrenia Subjective Information 51 year old male. Pt noted with poor PO intake since adm 03/20. Pt was sitting in a chair next to bed during visit , RN in room. Pt was very fixated on his urine output and gray catheter, pt either remained silent or expressed concern about his urine output , limited interview due to this and likely hx psychosis. Pt stated he does have appetite with taste bud present, however did not elaborate further regarding poor PO. Obtained CBW via bedscale with bed properly calibrated and then pt lying down. Current Diet Order/ Nutrition Support Regular Pertinent Medications Sandorx, D5 0.9%, Folate, Haldol, MOM, Zofran, Vitamin B1 Pertinent Labs 03/23: Sodium 127L, BUN 46H, creaitnine 2.2H, glucose 107H 03/25: Sodium 130L (improving), BUN 32H (improving), creatinine 1.7H (improving) glucose 165H Nutritional Hx/Data Height 1.83 m Height (Calculated Centimeters) 182.9 Current Weight (lbs) 75.432 kg Weight (Calculated Kilograms) 75.4 Weight (Calculated Grams) 85875.4 [place] Body Weight 178 Weight Status Approriate GI Symptoms Food Allergies No Skin Integrity/Comment: Ryan 15. Skin intact. Current %PO Poor (25-49%) Estimated Nutritional Goals BEE in Kcals: Using Current wt Calories/Kcals/Kg CBW 75.4kg Kcals Calculated 1885-2262kcal (25-30kcal/kg) Protein: Using Current wt Protein Calculated 45g (0.6g/kg, monitor renal, improving) Fluid: ml 1885-2262ml (1ml/kcal) Nutritional Problem 1. Problem Problem Inadequate oral food beverage intake related to Etiology likely cognition aeb Signs/Symptoms: pt fixated on urine output and does not want to eat at this time Intervention/Recommendation Comments 1. Continue with regular diet. Continue to monitor sodium level and renal labs. Recommend low sodium diet if approrpaite. 2. Encourage PO intake, closely monitor. Pt appeared fixated on urine output and does not want to eat. Pt reported good appetite. RD explained importance of nutrition, pt nodded. 3. Monitor weight, prevent weight loss. Expected Outcomes/Goals Expected Outcomes/Goals 1. PO intake to meet at least 75% of estimated nutritional needs. Physician Parameters for PEM Serum Albumin (g/dl) 3.1 - 3.4 (Mild)
[2017-04-01] MEDS: Hydrocodone/APAP 10 mg/325 mg Tab PO PRN (16:58)
[2017-04-01] MEDS: Magnesium Hydroxide (MOM) 30 mL UDC PO PRN (17:00)
[2017-04-01] MEDS: Benztropine 1 MG TAB PO SCH (20:41)
--- NOTE | 2017-04-02 08:07 | Progress Notes ---
DATE: 04/01/2017 SUBJECTIVE: The patient is awake. The patient is on IV antibiotics. The patient is on IV fluids. The patient is receiving inpatient neb treatment. The patient is awaiting surgery for removal of gallbladder. OBJECTIVE: VITAL SIGNS: Temperature 98.6, pulse 90, respiratory rate 18, 96% on room air. CARDIOVASCULAR: S1, S2. RESPIRATORY: Clear. GASTROINTESTINAL: Soft, positive bowel sounds. LABORATORY DATA: Labs done on the patient is hematology, WBC 11.5, hemoglobin 9.3, hematocrit 26.4, platelet count 156, 10% monocytes. ESR is 110. PT 12.2, INR 1.16, PT 28.0. Chemistry: Sodium is 148, potassium 3.8, chloride 117, bicarbonate 27, magnesium per labs, BUN 25, creatinine per labs, GFR is 59.1. Glucose 148, calcium 8.9, total bili 0.8, direct bili 0.43, AST is 178, ALT 109, alkaline phosphatase 608, creatinine kinase 1871, troponin is 13.1, C-reactive protein 0.31, total protein 6.8, albumin 2.5. MICROBIOLOGY: MRSA screening from March 20 positive. Blood culture from 03/27 shows staph epidermidis. Urine culture from 03/27 shows mixed urogenital sundeep. Rectal wound culture from 03/29 shows E. coli. Blood culture from 03/29 shows no growth. ASSESSMENT: 1. Sepsis. 2. Perirectal abscess secondary to Escherichia coli. 3. Bacteremia secondary to Staph epidermidis. 4. Leukocytosis (improved). 5. Anemia. 6. Hypernatremia (improved). 7. Acute kidney injury. 8. Hyperglycemia. 9. Transaminitis. 10. Elevated troponin level. 11. Rhabdomyolysis. 12. Hyperglobulinemia. PLAN: Continue current medication and treatment. Continue IV fluids. Continue IV antibiotics. The patient is awaiting laparoscopic cholecystectomy, awaiting Cardiology consult regarding elevated troponin levels. Further recommendations per consults. Thank you very much. JOB# [id number] CHELSEA
--- NOTE | 2017-04-02 08:20 | Progress Notes ---
DATE: 04/01/2017 Case was discussed with staff of the patient, reviewed records. The patient also talked to his mother and sister happens to be there. The patient with a history of schizophrenia and bipolar disorder, drug abuse, all drugs, but mother reported he never uses IV. He does have his own psychiatrist, I would recommend to the mother that to make sure that the psychiatrist, they go to him after discharge or make sure he is aware that he has kidney problems and I discussed with her why I took him off the lithium and that he may need to be on other medication, but currently I do not recommend adding anything else since he is stable and he is not acting in any way dangerous; however, I am not sure if ____ started using drugs or going ____ will go over ____ noncompliant with the medication and the patient currently is not voicing any intent to harm himself or anyone. He is unable to talk or walk. No acting out behavior. No side effects with the medication. Thank you very much for allowing me to participate in the care of this most interesting gentleman. JOB# [id number]
--- NOTE | 2017-04-04 14:41 | Progress Notes ---
DATE: 03/31/2017 SUBJECTIVE: The patient is asleep. The patient is receiving inpatient wound care. The patient is on IV fluids. The patient is on IV antibiotics. OBJECTIVE: VITAL SIGNS: Temperature 98.2, pulse 92, respirations 18, O2 on room air. CARDIOVASCULAR: S1 and S2. RESPIRATORY: Clear. GASTROINTESTINAL: Soft, positive bowel sounds. LABORATORY DATA: Hematology: WBC 17.0, hemoglobin 9.5, hematocrit 27.9, platelet count of per labs, 13% monocytes. Chemistry: Sodium 150, potassium 3.8, chloride 117, bicarbonate 25, anion gap 11, BUN 24, creatinine 1.5. GFR is 160, glucose 123, calcium 8.8. MICROBIOLOGY: MRSA screen from 03/20/2017 positive. Blood culture from 03/27/2017 shows Staph epidermidis. Urine culture from 03/27/2017 shows mixed urogenital sundeep. Perirectal abscess culture from 03/29/2017 shows E. coli and blood culture from 03/29/2017 shows no growth. ASSESSMENT: 1. Sepsis. 2. Perirectal abscess (secondary to Escherichia coli). 3. Bacteremia secondary to Staph epidermidis. 4. Leukocytosis (worsening). 5. Anemia. 6. Hypernatremia. 7. Acute kidney injury. 8. Hyperglycemia. 9. Altered mental status. 10. Methicillin-resistant Staphylococcus aureus colonization. 11. Polysubstance dependence. 12. Paranoid schizophrenia. 13. Benign prostatic hyperplasia. 14. Epilepsy. 15. Bladder dysfunction. PLAN: Continue current medication and treatment. Obtain labs in a.m. Await final culture results. Continue inpatient wound care. We will change IV fluids. Further consults. ADDENDUM: CT of the head performed on 03/30/2017 shows no significant evidence of cranial abnormality. JOB# [id number] CHELSEA
--- NOTE | 2017-04-21 23:40 | Discharge Summary ---
DATE OF DISCHARGE: 04/01/2017 DISCHARGE DIAGNOSES: 1. Sepsis. 2. Perirectal abscess secondary to E. coli. 3. Bacteremia secondary to Staph epidermidis. 4. Leukocytosis (improved). 5. Anemia. 6. Hypernatremia (improved). 7. Acute kidney injury. 8. Hyperglycemia. 9. Transaminitis 10. Hyperglobulinemia. HOSPITAL COURSE: The patient is a 51-year-old black male who was transferred from [facility]. The patient was admitted with diagnoses of acute injury, weakness, dehydration, leukopenia, anemia, hypernatremia, hyperglycemia, transaminitis, hyperglobulinemia, schizophrenia, and asthma. The patient was admitted to Med/Surg Unit. Consultation obtained. Psychiatric consultation from Dr. Montez who said the patient has psychosis and polysubstance dependence. The patient was placed on Neurontin. The patient was placed on thiamine, folic acid, multivitamins, and the patient was continued on Haldol and lithium. Nephrology consultation was obtained from Dr. Lancaster who said the patient has chronic kidney disease secondary to chronic interstitial nephritis. The patient was on IV fluids. GI consultation was obtained from Dr. Benz who states the patient has transaminitis secondary to drug abuse versus hepatitis with alcoholic cholecystitis. Infectious Disease consultation obtained from Dr. Mike Bautista, who states the patient has pyrexia secondary to UTI. The patient was started on Maxipime. General surgery consultation was obtained from Dr. Desai regarding the patient's perirectal abscess. Recommendation was for I&D. The patient recommended on 03/29/2017 sigmoidoscopy and I and D of left perirectal abscess. The patient had multiple urologic tests done during hospital course. The patient was discharged from [facility] to [facility]. JOB# [id number] CHELSEA
== END 2017-04-01 22:30 | DRG 710 ==
LOC: MSI 20:22 → TELE 04-01 09:53
PROVIDERS: ADMIT Preventive Medicine Preventive Medicine/Occupational Environmental Medicine; ATTEND Preventive Medicine Preventive Medicine/Occupational Environmental Medicine
PROC: 0DJD8ZZ Inspection of Lower Intestinal Tract, Via Natural or Artificial Opening Endoscopic (ICD-10-PCS; principal; 2017-03-29)
PROC: 0J9B0ZZ Drainage of Perineum Subcutaneous Tissue and Fascia, Open Approach (ICD-10-PCS; 2017-03-29)
DX: A41.9 Sepsis, unspecified organism (principal); G93.40 Encephalopathy, unspecified; E43 Unspecified severe protein-calorie malnutrition; N17.9 Acute kidney failure, unspecified; A04.7 Enterocolitis due to Clostridium difficile; M62.82 Rhabdomyolysis; E87.1 Hypo-osmolality and hyponatremia; E88.09 Other disorders of plasma-protein metabolism, not elsewhere classified; D64.9 Anemia, unspecified; R73.9 Hyperglycemia, unspecified; J45.909 Unspecified asthma, uncomplicated; L02.215 Cutaneous abscess of perineum; N39.0 Urinary tract infection, site not specified; G40.909 Epilepsy, unspecified, not intractable, without status epilepticus; E83.51 Hypocalcemia; F29 Unspecified psychosis not due to a substance or known physiological condition; F19.20 Other psychoactive substance dependence, uncomplicated; N18.9 Chronic kidney disease, unspecified; E83.41 Hypermagnesemia; F20.0 Paranoid schizophrenia; N40.0 Benign prostatic hyperplasia without lower urinary tract symptoms; N31.2 Flaccid neuropathic bladder, not elsewhere classified; N40.1 Benign prostatic hyperplasia with lower urinary tract symptoms; N13.8 Other obstructive and reflux uropathy; K61.1 Rectal abscess; B96.20 Unspecified Escherichia coli [E. coli] as the cause of diseases classified elsewhere; Z87.891 Personal history of nicotine dependence; Z22.322 Carrier or suspected carrier of Methicillin resistant Staphylococcus aureus
CPT/HCPCS: 36415-UA; 70450-TC; 71010-TC; 76705-TC; 76770-TC; 76857-TC; 78226-TC; 80048-TC; 80053-TC; 80074-90; 80076-TC; 80178-TC; 80307; 81001-TC; 81015-TC; 82043-90; 82085-90; 82140-TC; 82248-TC; 82390-90; 82550-TC; 82553; 82570-TC; 82607-90; 82728-90; 82746-90; 82948-90; 83735-TC; 83930-90; 83935-90; 84100-TC; 84300-TC; 84484-TC; 84550-TC; 85007-TC; 85025-TC; 85027-TC; 85610-TC; 85652-TC; 86141-TC; 87070-90; 87075-90; 87086-90; 87205-90; 87230-TC; 90779; 90799; 93005; 94760; A4217; A9537; J0692; J2001; J2060; J2250; J2270; J2543; J2704; J7042; J7070; J7613; X3904; X6026; X6206; Z7610